=== PATIENT | female | born 1940 | race Caucasian/White ===

== ENCOUNTER → 2018-12-21 | Outpatient (CLI) | payer MEDICARE, OTHER ==
--- NOTE | 2018-12-21 17:49 | Diagnostic Imaging Report ---
EXAMINATION: Left hand, three views; right hand, three views. INDICATION: Osteoarthritis of both hands. COMPARISON: None available. FINDINGS: No fracture or acute osseous abnormality is appreciated. Bony alignment is fairly well maintained. There is marked degenerative change involving the first carpometacarpal joint of both hands, with marked joint space narrowing, marginal osteophyte formation, and subchondral cyst formation. Mild joint space narrowing involves the interphalangeal joints. Apparent rounded lucency in the left scaphoid bone may also be related to degenerative change. Well-corticated ossific density in the dorsal soft tissues of the left wrist may reflect degenerative change or sequela of prior trauma, possibly old triquetral fracture. Soft tissues are unremarkable. No radiopaque foreign body. IMPRESSION: Marked degenerative change of both hands mainly involving the first metacarpophalangeal joints bilaterally. No acute fracture or dislocation. Dictated by: Dictated on workstation # [id number]
== END ==
LOC: RAD 12:38
PROVIDERS: ATTEND Internal Medicine Rheumatology
DX: M19.041 Primary osteoarthritis, right hand (principal); M19.042 Primary osteoarthritis, left hand

== ENCOUNTER 2020-11-20 13:12 | Outpatient (RCR) | payer MEDICARE, OTHER | END 2021-01-13 | disposition home or self-care (01) | PROVIDERS: ATTEND Physician Assistant | DX: G62.9 Polyneuropathy, unspecified (principal) ==

== ENCOUNTER 2021-12-10 14:03 | Outpatient (RCR) | payer MEDICARE, OTHER | END 2021-12-15 | disposition home or self-care (01) | PROVIDERS: ATTEND Family Medicine | DX: M54.12 Radiculopathy, cervical region (principal) ==

== ENCOUNTER 2021-12-30 14:12 | Outpatient (RCR) | payer MEDICARE, OTHER | END 2022-01-14 | disposition home or self-care (01) | PROVIDERS: ATTEND Family Medicine | DX: M54.12 Radiculopathy, cervical region (principal); M62.838 Other muscle spasm; E11.9 Type 2 diabetes mellitus without complications ==

== ENCOUNTER → 2022-03-10 | Outpatient (CLI) | payer MEDICARE, OTHER ==
[2022-03-10 11:54] LABS: BASOPHILS % (AUTO) 1 % (0-10); EOSINOPHILS # (AUTO) 0.2 10^3/uL (0.0-0.3); EOSINOPHILS % (AUTO) 2 % (0-10); HEMATOCRIT 39 % (35-52); HEMOGLOBIN 12.5 g/dL (11.5-16.0); LYMPHOCYTES # (AUTO) 1.7 10^3/uL (1.0-4.0); LYMPHOCYTES % (AUTO) 22 % (12-44); MEAN CORPUSCULAR HEMOGLOBIN 27 pg (25-34); MEAN CORPUSCULAR HGB CONC 32 g/dL (32-36); MEAN CORPUSCULAR VOLUME 84 fL (80-99); MEAN PLATELET VOLUME 10.2 fL (9.0-12.2); MONOCYTES # (AUTO) 0.7 10^3/uL (0.0-1.0); MONOCYTES % (AUTO) 9 % (0-12); NEUTROPHILS # (AUTO) 5.2 10^3/uL (1.8-7.8); NEUTROPHILS % (AUTO) 66 % (42-75); PLATELET COUNT 289 10^3/uL (130-400); WHITE BLOOD COUNT 7.8 10^3/uL (4.3-11.0)
[2022-03-10 12:11] LABS: ALBUMIN 3.7 GM/DL (3.2-4.5)
[2022-03-10 12:12] LABS: POTASSIUM 5.2 MMOL/L (3.6-5.0)
[2022-03-10 12:13] LABS: CALCIUM 9.9 MG/DL (8.5-10.1)
[2022-03-10 12:14] LABS: TOTAL PROTEIN 7.2 GM/DL (6.4-8.2)
[2022-03-10 12:16] LABS: BILIRUBIN,TOTAL 0.3 MG/DL (0.1-1.0)
[2022-03-10 12:18] LABS: CREATININE SERUM 0.92 MG/DL (0.60-1.30)
[2022-03-10 12:22] LABS: ERYTHROCYTE SEDIMENTATION RATE 40 MM/HR (0-30)
== END ==
LOC: WOUNDCARE 10:11
PROVIDERS: ATTEND Family Medicine
DX: L97.512 Non-pressure chronic ulcer of other part of right foot with fat layer exposed (principal); E11.621 Type 2 diabetes mellitus with foot ulcer; E11.65 Type 2 diabetes mellitus with hyperglycemia; E11.40 Type 2 diabetes mellitus with diabetic neuropathy, unspecified; E55.9 Vitamin D deficiency, unspecified; L03.031 Cellulitis of right toe; I70.235 Atherosclerosis of native arteries of right leg with ulceration of other part of foot; R26.89 Other abnormalities of gait and mobility
CPT/HCPCS: 80053; 83036; 85025; 85652; 86141; A6197; G0463; 36415; 99214

== ENCOUNTER → 2022-03-23 | Outpatient (CLI) | payer MEDICARE, OTHER ==
--- NOTE | 2022-03-23 18:23 | Diagnostic Imaging Report ---
INDICATION: Osteomyelitis, ulcer, wound. COMPARISON: None available TECHNIQUE: 3 radiographs of the right foot dated 06/22/2022 FINDINGS: No acute fracture or dislocation. No focal destructive osseous process. Advanced degenerative changes are identified within the midfoot with severe joint space narrowing, sclerosis of the articular surfaces, and subchondral cyst formation. Prominent osteophyte formation is also noted with mild pes planus deformity. Tiny plantar calcaneal enthesophytes. Anterior osteophytes noted involving the distal tibia at the ankle joint. Soft tissue swelling is noted about the ankle. The Lisfranc joint is not optimally visualized secondary to advanced degenerative changes. No suspicious radiopaque foreign body. IMPRESSION: Advanced degenerative changes, particularly involving the midfoot with resultant pes planus deformity and poor visualization of the Lisfranc joint. No focal osseous destruction associated with the 1st toe to correspond to apparent clinical abnormality. Should there remain clinical concern for underlying osteomyelitis, follow-up radiographs in 10-14 days would be recommended. Alternatively, MRI could be considered. Soft tissue swelling involving the ankle. Dictated by: Dictated on workstation # [id number]
== END ==
LOC: WOUNDCARE 10:18
PROVIDERS: ATTEND Family Medicine
DX: L97.512 Non-pressure chronic ulcer of other part of right foot with fat layer exposed (principal); E11.621 Type 2 diabetes mellitus with foot ulcer; E11.65 Type 2 diabetes mellitus with hyperglycemia; E11.40 Type 2 diabetes mellitus with diabetic neuropathy, unspecified; E55.9 Vitamin D deficiency, unspecified; L03.031 Cellulitis of right toe; I70.235 Atherosclerosis of native arteries of right leg with ulceration of other part of foot; R26.89 Other abnormalities of gait and mobility; E11.52 Type 2 diabetes mellitus with diabetic peripheral angiopathy with gangrene
CPT/HCPCS: 11042; 73630; G0463

== ENCOUNTER → 2022-03-30 | Outpatient (CLI) | payer MEDICARE, OTHER | LOC: WOUNDCARE 12:51 | PROVIDERS: ATTEND Family Medicine | DX: L97.512 Non-pressure chronic ulcer of other part of right foot with fat layer exposed (principal); E11.621 Type 2 diabetes mellitus with foot ulcer; E11.65 Type 2 diabetes mellitus with hyperglycemia; E11.40 Type 2 diabetes mellitus with diabetic neuropathy, unspecified; E55.9 Vitamin D deficiency, unspecified; R26.89 Other abnormalities of gait and mobility; I70.235 Atherosclerosis of native arteries of right leg with ulceration of other part of foot; E11.52 Type 2 diabetes mellitus with diabetic peripheral angiopathy with gangrene; I96 Gangrene, not elsewhere classified | CPT/HCPCS: 11042; G0463 ==

== ENCOUNTER → 2022-04-06 | Outpatient (CLI) | payer MEDICARE, OTHER | LOC: WOUNDCARE 13:47 | PROVIDERS: ATTEND Family Medicine | DX: I96 Gangrene, not elsewhere classified (principal); L97.512 Non-pressure chronic ulcer of other part of right foot with fat layer exposed; E11.621 Type 2 diabetes mellitus with foot ulcer; E11.65 Type 2 diabetes mellitus with hyperglycemia; E11.52 Type 2 diabetes mellitus with diabetic peripheral angiopathy with gangrene; E11.40 Type 2 diabetes mellitus with diabetic neuropathy, unspecified; E55.9 Vitamin D deficiency, unspecified; I70.235 Atherosclerosis of native arteries of right leg with ulceration of other part of foot | CPT/HCPCS: 11042; G0463 ==

== ENCOUNTER → 2022-04-13 | Outpatient (CLI) | payer MEDICARE, OTHER | LOC: WOUNDCARE 13:49 | PROVIDERS: ATTEND Family Medicine | DX: L97.512 Non-pressure chronic ulcer of other part of right foot with fat layer exposed (principal); E11.621 Type 2 diabetes mellitus with foot ulcer; E11.65 Type 2 diabetes mellitus with hyperglycemia; E11.40 Type 2 diabetes mellitus with diabetic neuropathy, unspecified; E55.9 Vitamin D deficiency, unspecified; I70.235 Atherosclerosis of native arteries of right leg with ulceration of other part of foot; L97.522 Non-pressure chronic ulcer of other part of left foot with fat layer exposed; E11.52 Type 2 diabetes mellitus with diabetic peripheral angiopathy with gangrene; R26.89 Other abnormalities of gait and mobility | CPT/HCPCS: 11042; A6197; G0463 ==

== ENCOUNTER → 2022-04-20 | Outpatient (CLI) | payer MEDICARE, OTHER | LOC: WOUNDCARE 13:49 | PROVIDERS: ATTEND Family Medicine | DX: E11.621 Type 2 diabetes mellitus with foot ulcer (principal); E11.65 Type 2 diabetes mellitus with hyperglycemia; E11.40 Type 2 diabetes mellitus with diabetic neuropathy, unspecified; L97.512 Non-pressure chronic ulcer of other part of right foot with fat layer exposed; E55.9 Vitamin D deficiency, unspecified; I70.235 Atherosclerosis of native arteries of right leg with ulceration of other part of foot; L97.522 Non-pressure chronic ulcer of other part of left foot with fat layer exposed; E11.52 Type 2 diabetes mellitus with diabetic peripheral angiopathy with gangrene; I96 Gangrene, not elsewhere classified; R26.89 Other abnormalities of gait and mobility; Z68.23 Body mass index [BMI] 23.0-23.9, adult | CPT/HCPCS: 15275; G0463 ==

== ENCOUNTER → 2022-05-04 | Outpatient (CLI) | payer MEDICARE, OTHER | LOC: WOUNDCARE 13:57 | PROVIDERS: ATTEND Family Medicine | DX: L97.512 Non-pressure chronic ulcer of other part of right foot with fat layer exposed (principal); E11.621 Type 2 diabetes mellitus with foot ulcer; E11.65 Type 2 diabetes mellitus with hyperglycemia; E11.40 Type 2 diabetes mellitus with diabetic neuropathy, unspecified; E55.9 Vitamin D deficiency, unspecified; I70.235 Atherosclerosis of native arteries of right leg with ulceration of other part of foot; R26.89 Other abnormalities of gait and mobility; L97.522 Non-pressure chronic ulcer of other part of left foot with fat layer exposed; E11.52 Type 2 diabetes mellitus with diabetic peripheral angiopathy with gangrene; I96 Gangrene, not elsewhere classified | CPT/HCPCS: 15275; G0463 ==

== ENCOUNTER 2022-06-01 19:57 | Emergency (ER) | payer MEDICARE, OTHER ==
[2022-06-01 19:59] VITALS: BP 164/69
[2022-06-01 20:20] LABS: BASOPHILS # (AUTO) 0.1 10^3/uL (0.0-0.1); BASOPHILS % (AUTO) 1 % (0-10); EOSINOPHILS # (AUTO) 0.2 10^3/uL (0.0-0.3); EOSINOPHILS % (AUTO) 3 % (0-10); HEMATOCRIT 36 % (35-52); HEMOGLOBIN 11.3 g/dL (11.5-16.0); LYMPHOCYTES # (AUTO) 1.5 10^3/uL (1.0-4.0); LYMPHOCYTES % (AUTO) 21 % (12-44); MEAN CORPUSCULAR HEMOGLOBIN 27 pg (25-34); MEAN CORPUSCULAR HGB CONC 32 g/dL (32-36); MEAN CORPUSCULAR VOLUME 84 fL (80-99); MEAN PLATELET VOLUME 10.1 fL (9.0-12.2); MONOCYTES # (AUTO) 0.9 10^3/uL (0.0-1.0); MONOCYTES % (AUTO) 13 % (0-12); NEUTROPHILS # (AUTO) 4.4 10^3/uL (1.8-7.8); NEUTROPHILS % (AUTO) 62 % (42-75); PLATELET COUNT 310 10^3/uL (130-400)
[2022-06-01 20:27] LABS: BILIRUBIN,URINE NEGATIVE (NEGATIVE); CLARITY,URINE CLEAR; COLOR,URINE YELLOW; GLUCOSE, URINE (UA) 1+ (NEGATIVE); KETONES,URINE NEGATIVE (NEGATIVE); LEUKOCYTE ESTERASE ,URINE NEGATIVE (NEGATIVE); NITRITE,URINE NEGATIVE (NEGATIVE); PH,URINE 5.5 (5-9); PROTEIN,URINE NEGATIVE (NEGATIVE)
--- NOTE | 2022-06-01 20:29 | ED General ---
General Chief Complaint: Neurological Problems Stated Complaint: STROKE SYMPTOMS Nursing Triage Note: PT ARRIVAL TO ER VIA [facility] FROM HOME WITH COMPLAINTS OF TROUBLE FINDING WORDS, DELAY IN RESPONSE. LAST KNOWN WELL TIME BY FAMILY IS 1500, BUT PATIENT STATES THAT THIS STARTED AROUND 1830. PATIENT HAS NO OTHER SIGNS OR SYMPTOMS OF CVA. PT DENIES HEADACHE. Source of Information: Patient (LIMITED HISTORIAN. ), EMS (MARIELLA BALBUENA DO) History of Present Illness Date Seen by Provider: Jun 01, 2022 Time Seen by Provider: 19:57 Initial Comments PT ARRIVES VIA EMS FROM HOME LAST KNOWN WELL TIME 1500 PT HAS BEEN HAVING DIFFICULTY FINDING WORDS, PT THINKS SHE STARTED HAVING THIS PROBLEM AROUND 1830 TONIGHT PT STATES SHE "JUST HASN'T FELT GOOD AT ALL" ALL DAY, SINCE WAKING HIS MORNING. BUT CANNOT GIVE ANY SPECIFIC COMPLAINTS OF ANY KIND SHE STATES SHE DID NOT TAKE ANY OF HER MEDICATIONS TODAY "BECAUSE I JUST DIDN'T FEEL GOOD" EMS REPORT TEMP OF 99.8 AT THE HOUSE, PRIOR TO ARRIVAL PT IS NON-INSULIN DEPENDENT DIABETIC. GLUCOSE > 300 FOR EMS. PT HAS NOT CHECKED HER BLOOD SUGAR AT HOME. NO RECENT MEDICATION CHANGES SHE IS ON 81 MG ASPIRIN, NO OTHER BLOOD THINNERS PT HAS RECENTLY HAD HER PACEMAKER REPLACED BY DR. WAHL AT [facility]--PT WITH DRESSING IN PLACE ON LEFT CHEST SHE ALSO HAD A RIGHT GREAT TOE AMPUTATION A COUPLE OF WEEKS AGO, DUE TO CHRONIC DIABETIC FOOT ULCER AND OSTEOMYELITIS, HAD BEEN GOING TO WOUND CARE PRIOR TO THAT FOR CHRONIC DIABETIC FOOT ULCER SHE HAS NOT HAD ANY PRIOR VISITS HERE, OTHER THAN OUTPATIENT WOUND CARE. PT HAS HAD COVID-19 VACCINES X 3. LAST ONE WAS 1 MONTH AGO SHE HAS NOT HAD SEASONAL FLU VACCINE THIS YEAR. PCP: DR. OSBORNE HAS MULTIPLE SPECIALISTS AT [facility] (MARIELLA BALBUENA DO) Allergies and Home Medications Allergies Uncoded Allergies: SINUS (Allergy, Unknown, 06/01/22) "SINUS MEDICATION" Patient Home Medication List Home Medication List Reviewed: Yes (BRENT RAYMOND MD) Review of Systems Review of Systems Constitutional: see HPI; No chills, No diaphoresis, No dizziness, No fever; malaise, weakness EENTM: no symptoms reported Respiratory: no symptoms reported; No cough, No orthopnea, No short of breath Cardiovascular: no symptoms reported; No chest pain, No edema, No palpitations, No syncope Gastrointestinal: no symptoms reported; No abdominal pain, No diarrhea, No nausea, No vomiting Genitourinary: no symptoms reported; No dysuria, No frequency Musculoskeletal: see HPI, other (NO PAIN COMPLAINTS) Skin: no symptoms reported, see HPI Psychiatric/Neurological: See HPI; Denies Headache; Pre-Existing Deficit (HAS PERIPHERAL NEUROPATHY --STATES NO FEELING IN EITHER FOOT. 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: [employer] (MARIELLA BALBUENA DO) Past Medical History Surgeries: Yes Amputation, Pacemaker Respiratory: No Cardiac: Yes (PACEMAKER IN PLACE) High Cholesterol, Hypertension, Irregular Heartbeat Neurological: Yes (PERIPHERAL NEUROPATHY; 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/01/22) Neuropathy 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: 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 Genitourinary: Yes (BLADDER CONTROL ISSUES) Gastrointestinal: Yes Gastroesophageal Reflux Musculoskeletal: Yes (RIGHT GREAT TOE AMPUTATION/OSTEOMYELITIS 04/2022; CHRONIC LEG PAIN ) Amputee, Arthritis Endocrine: Yes Diabetes, Non-Insulin dep HEENT: No Cancer: No Psychosocial: No Integumentary: Yes (DIABETIC FOOT ULCER/OSTEOMYELITIS R GREAT TOE) (MARIELLA BALBUENA DO) Physical Exam Vital Signs Vital Signs - First Documented 06/01/22 19:59 Temp 36.7 Pulse 87 Resp 20 B/P (MAP) 164/69 (100) Pulse Ox 99 O2 Delivery Room Air (BRENT RAYMOND MD) Vital Signs Capillary Refill : Less Than 3 Seconds (MARIELLA BALBUENA DO) Height, Weight, BMI Height: '" Weight: lbs. oz. 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 SPEECH IS CLEAR, PT DOES HAVE SOME DIFFICULTY FINDING SOME WORDS, BUT IS NOT CONFUSED. NO FOCAL DEFICITS. NIH 1 FOR VERY MILD EXPRESSIVE APHASIA. ) Skin: Normal Color, Warm/Dry, Other (SURGICAL SITE TO RIGHT GREAT TOE IS HEA LING WELL WITH NO SIGNS OF INFECTION, SUTURES ARE INTACT. THERE IS NO SWELLING OR DRAINAGE OR REDNESS TO THE AREA. SURGICAL WOUND TO LEFT UPPER CHEST IS HEALING WELL, NO SWELLING, NO REDNESS, NO DRAINAGE, NO WARMTH AND NO SIGNIFICANT TENDERNESS. ) (MARIELLA BALBUENA DO) Focused Exam Sepsis Stage: Sepsis Possible Source: Unknown (MARIELLA BALBUENA DO) Lactate Level 06/01/22 20:05: Lactic Acid Level 3.82*H 06/01/22 22:28: Lactic Acid Level 2.25*H 06/02/22 02:45: Lactic Acid Level 1.05 (BRENT RAYMOND MD) Time of Focused Exam: 21:00 Respiratory: Normal Breath Sounds, No Accessory Muscle Use, No Respiratory Distress Cardiovascular: Regular Rate, Rhythm, No Edema, No Murmur Skin: normal color, warm/dry (MARIELLA BALBUENA DO) Lactic Acid Level Laboratory Tests Test 06/01/22 20:05 06/01/22 22:28 06/02/22 02:45 Lactic Acid Level 3.82 MMOL/L (0.50-2.00) *H 2.25 MMOL/L (0.50-2.00) *H 1.05 MMOL/L (0.50-2.00) (BRENT RAYMOND MD) Within 3hrs of presentation: Admin fluids, Admin ABX, Blood cultures prior to ABX's, Focus exam, Lactate level (HERNANDEZMARIELLA Rudy DO) Progress/Results/Core Measures Suspected Sepsis SIRS Temperature: Pulse: 87 Respiratory Rate: 20 Laboratory Tests 06/01/22 20:05: White Blood Count 7.0 Blood Pressure 164 /69 Mean: 100 06/01/22 20:05: Lactic Acid Level 3.82*H 06/01/22 22:28: Lactic Acid Level 2.25*H 06/02/22 02:45: Lactic Acid Level 1.05 Laboratory Tests 06/01/22 20:05: Creatinine 0.86, INR Comment 1.0, Platelet Count 310, Total Bilirubin 0.2 (RAMIREZ BALBUENAA K DO) Results/Orders Lab Results Laboratory Tests Test 06/01/22 20:00 06/01/22 20:05 06/01/22 20:11 06/01/22 22:04 Range/Units Urine Color YELLOW Urine Clarity CLEAR Urine pH 5.5 5-9 Urine Specific [place] 1.025 H 1.016-1.022 Urine Protein NEGATIVE NEGATIVE Urine Glucose (UA) 1+ H NEGATIVE Urine Ketones NEGATIVE NEGATIVE Urine Nitrite NEGATIVE NEGATIVE Urine Bilirubin NEGATIVE NEGATIVE Urine Urobilinogen 0.2 < = 1.0 MG/DL Urine Leukocyte Esterase NEGATIVE NEGATIVE Urine RBC (Auto) NEGATIVE NEGATIVE Urine RBC 2-5 H /HPF Urine WBC 0-2 /HPF Urine Squamous Epithelial Cells 0-2 /HPF Urine Renal Epithelial Cells NONE /HPF Urine Crystals NONE /LPF Urine Bacteria TRACE /HPF Urine Casts NONE /LPF Urine Mucus NEGATIVE /LPF Urine Culture Indicated CULTURE PENDING White Blood Count 7.0 4.3-11.0 10^3/uL Red Blood Count 4.21 3.80-5.11 10^6/uL Hemoglobin 11.3 L 11.5-16.0 g/dL Hematocrit 36 35-52 % Mean Corpuscular Volume 84 80-99 fL Mean Corpuscular Hemoglobin 27 25-34 pg Mean Corpuscular Hemoglobin Concent 32 32-36 g/dL Red Cell Distribution Width 15.0 H 10.0-14.5 % Platelet Count 310 130-400 10^3/uL Mean Platelet Volume 10.1 9.0-12.2 fL Immature Granulocyte % (Auto) 0 % Neutrophils (%) (Auto) 62 42-75 % Lymphocytes (%) (Auto) 21 12-44 % Monocytes (%) (Auto) 13 H 0-12 % Eosinophils (%) (Auto) 3 0-10 % Basophils (%) (Auto) 1 0-10 % Neutrophils # (Auto) 4.4 1.8-7.8 10^3/uL Lymphocytes # (Auto) 1.5 1.0-4.0 10^3/uL Monocytes # (Auto) 0.9 0.0-1.0 10^3/uL Eosinophils # (Auto) 0.2 0.0-0.3 10^3/uL Basophils # (Auto) 0.1 0.0-0.1 10^3/uL Immature Granulocyte # (Auto) 0.0 0.0-0.1 10^3/uL Prothrombin Time 13.4 12.2-14.7 SEC INR Comment 1.0 0.8-1.4 Activated Partial Thromboplast Time 30 24-35 SEC D-Dimer 2.05 H 0.00-0.49 UG/ML Sodium Level 135 135-145 MMOL/L Potassium Level 3.9 3.6-5.0 MMOL/L Chloride Level 103 98-107 MMOL/L Carbon Dioxide Level 19 L 21-32 MMOL/L Anion Gap 13 5-14 MMOL/L Blood Urea Nitrogen 14 7-18 MG/DL Creatinine 0.86 0.60-1.30 MG/DL Estimat Glomerular Filtration Rate 68 BUN/Creatinine Ratio 16 Glucose Level 295 H 70-105 MG/DL Lactic Acid Level 3.82 *H 0.50-2.00 MMOL/L Calcium Level 9.4 8.5-10.1 MG/DL Corrected Calcium 9.9 8.5-10.1 MG/DL Total Bilirubin 0.2 0.1-1.0 MG/DL Aspartate Amino Transf (AST/SGOT) 27 5-34 U/L Alanine Aminotransferase (ALT/SGPT) 29 0-55 U/L Alkaline Phosphatase 153 H 40-136 U/L Troponin I 0.659 *H <0.028 NG/ML Total Protein 6.5 6.4-8.2 GM/DL Albumin 3.4 3.2-4.5 GM/DL Procalcitonin 0.04 <0.10 NG/ML Glucometer 256 H 70-110 MG/DL Beta-Hydroxybutyrate (Chem panel) 0.14 0.00-0.27 MMOL/L Test 06/01/22 22:28 06/01/22 22:37 06/02/22 01:49 06/02/22 02:18 Range/Units Glucose Level 253 H 70-105 MG/DL Lactic Acid Level 2.25 *H 0.50-2.00 MMOL/L Troponin I 0.732 *H <0.028 NG/ML Blood Gas Puncture Site L RAD Blood Gas Patient Temperature 37 Arterial Blood pH 7.42 7.37-7.43 Arterial Blood Partial Pressure CO2 36 35-45 MMHG Arterial Blood Partial Pressure O2 83 79-93 MMHG Arterial Blood HCO3 23 23-27 MMOL/L Arterial Blood Total CO2 23.6 21.0-31.0 MMOL/L Arterial Blood Oxygen Saturation 97 94-100 % Arterial Blood Base Excess -1.4 -2.5-2.5 MMOL/L Kel Test YES-POS Blood Gas Ventilator Setting NO Blood Gas Inspired Oxygen RA Glucometer 82 70-110 MG/DL Influenza Type A (RT-PCR) Not Detected Not Detecte Influenza Type B (RT-PCR) Not Detected Not Detecte SARS-CoV-2 RNA (RT-PCR) Detected H Not Detecte Test 06/02/22 02:45 06/02/22 06:27 06/02/22 09:48 Range/Units Lactic Acid Level 1.05 0.50-2.00 MMOL/L Troponin I 0.714 *H <0.028 NG/ML Glucometer 144 H 198 H 70-110 MG/DL (BRNET RAYMOND MD) My Orders Orders - BRENT RAYMOND MD Oxymetazoline 0.05% Nasal [place] (Afrin 0. (06/02/22 21:00) Fentanyl Inj (Sublimaze Injection) (06/02/22 10:45) Oxymetazoline 0.05% Nasal [place] (Afrin 0. (06/02/22 10:36) (BRENT RAYMOND MD) Medications Given in ED Current Medications Medications Dose Ordered Sig/Comfort Route Start Time Stop Time Status Last Admin Dose Admin Cefepime HCl 1000 mg/Sodium Chloride 50 ml @ 100 mls/hr ONCE ONCE IV 06/02/22 04:15 06/02/22 04:44 DC 06/02/22 04:20 100 MLS/HR Enoxaparin Sodium 80 mg ONCE ONCE SC 06/02/22 02:00 06/02/22 02:01 DC 06/02/22 02:02 80 MG Fentanyl Citrate 25 mcg ONCE ONCE IVP 06/02/22 10:45 06/02/22 10:46 DC 06/02/22 10:40 25 MCG Insulin Human Regular 10 unit ONCE ONCE IV 06/02/22 00:30 06/02/22 00:31 DC 06/02/22 00:34 10 UNIT Oxymetazoline HCl 1 SPRAY Q12HR ONCE NA 06/02/22 21:00 06/02/22 21:01 06/02/22 10:38 30 ML (BRENT RAYMOND MD) Vital Signs/I&O 06/01/22 19:59 Temp 36.7 Pulse 87 Resp 20 B/P (MAP) 164/69 (100) Pulse Ox 99 O2 Delivery Room Air 06/02/22 00:00 Intake Total 50 ml Balance 50 ml (BRENT RAYMOND MD) Vital Signs/I&O Capillary Refill : Less Than 3 Seconds (MARIELLA BALBUENA DO) Blood Pressure Mean: 100 Point of Care Testing Finger Stick Blood Glucose: 256 (MARIELLA BALBUENA DO) Progress Note : Progress Note STROKE ACTIVATION ON ARRIVAL ALSO SEPSIS PROTOCOL INITIATED CARDIAC WORK UP ALSO INITIATED GIVEN: -IV FLUIDS -ANTIBIOTICS -INSULIN -LOVENOX PT HAD RESOLUTION OF THE SYMPTOM OF PROBLEM FINDING WORDS DURING ER STAY. MUCH LATER, PT NOW REPORTS THAT SHE HAD THE SAME THING HAPPEN LAST NIGHT--WAS HAVING PROBLEMS FINDING THE RIGHT WORD, AND WHEN THIS WAS HAPPENING, SHE WAS ALSO HAVING "FLICKERS" IN HER RIGHT EYE. SHE IS NOT HAVING THOSE SYMPTOMS NOW, AND HER VISION IS NORMAL FOR HER. SHE IS UNCLEAR HOW LONG IT LASTED LAST NIGHT SHE DENIES ANY PRIOR HISTORY OF STROKES OR SIMILAR SYMPTOMS PT LIVES ALONE, BUT A FAMILY MEMBER "STEP-DAUGHTER" IS HERE WITH HER AND CHECKS ON HER REGULARLY. VERY COMPLICATED ISSUES, DUE TO: -POSSIBLE STROKE SYMPTOMS, WITH PROBLEMS WITH WORD FINDING, NIH IS ONLY 1, AND SYMPTOMS RESOLVED DURING ER STAY -ELEVATED TROPONIN. EKG IS NON-DIAGNOSTIC, SHE IS 100% VENTRICULAR PACED. -ELEVATED BLOOD GLUCOSE WITHOUT ANY EVIDENCE OF DKA OR HHNK -ELEVATED LACTIC ACID LEVEL IS CONCERNING FOR SEPSIS, WITHOUT ANY IDENTIFIABLE SOURCE, BUT HAS HAD 2 RECENT SURGICAL PROCEDURES. VERY LENGTHY DISCUSSION WITH PT AND "STEP DAUGHTER" ABOUT ALL TEST RESULTS. DISCUSSED OPTION OF ADMITTING HER HERE VS TRANSFER TO [facility] AND MULTISPECIALTY CARE AVAILABLE THERE. PT REQUESTS TRANSFER TO [facility], ALL OF HER SPECIALISTS ARE THERE, AND SHE ACTUALLY IS SCHEDULED TO HAVE FOLLOW UP APPOINTMENTS WITH DR. WAHL AND HER SURGEON FOR HER TOE AMPUTATION TOMORROW. ADVISED THEM OF TRANSPORTATION ISSUES, AND THAT WE WILL BE HOLDING HER HERE IN THE ER ALL NIGHT UNTIL TRANSPORTATION IS ARRANGED. PT IS AGREEABLE TO THIS PLAN. PT STATES SHE WISHES TO BE A FULL CODE. MUCH LATER, ON REVIEWING COVID RESULTS WITH PATIENT, SHE JUST NOW REPORTS THAT SHE HAD COVID IN APRIL AND SHE HAD HER 3RD VACCINE IN [place]. SHE STATES SHE TOOK MEDICATION FOR COVID, BUT WAS NOT HOSPITALIZED. ON REVIEW OF MED RECONCILIATION, PT WAS PRESCRIBED PAXLOVID 04/21/22. SUSPECT THAT TODAY'S POSITIVE COVID TEST IS LIKELY DUE TO HER RECENT COVID ILLNESS LAST MONTH. 0400--PT RESTING QUIETLY. HAS NO COMPLAINTS, VITALS STABLE. 0500--PT RESTING QUIETLY. HAS NO COMPLAINTS, VITALS STABLE. 0600--CARE TURNED OVER TO DR. RAYMOND, TRANSPORTATION IS PENDING, PT HAS BEEN ACCEPTED AT [facility]. (MARIELLA BALBUENA DO) Progress Note : Time: 10:33 Progress Note I assumed care of this patient from Dr. Balbuena at shift change. She has been stable since then. Vital signs are stable at this time. Patient was reevaluated and complains of generalized discomfort from lying in bed and discomfort in her legs from neuropathy. She usually takes tramadol for her neuropathy. I am keeping her in n.p.o. status presently since I am not aware of any procedures will be desired once she arrives at [facility]. As an alternative I have ordered fentanyl 25 mcg. She also complains of nasal congestion and Afrin was ordered. 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 Patient reports difficulty with word finding. This is not readily apparent during my conversation with her. Gross examination reveals no other focal neurologic deficits. Heart is regular rate and rhythm and lungs are clear to auscultation. (BRENT RAYMOND MD) ECG Initial ECG Impression Date: Jun 01, 2022 Initial ECG Impression Time: 20:14 Initial ECG Rate: 97 Comment 100% VENTRICULAR PACED. (MARIELLA BALBUENA DO) Diagnostic Imaging Comments CXR--PER RADIOLOGIST REPORT FINDINGS: The lungs clear aside from slight left medial basilar partial atelectasis. The heart size and vascularity within normal limits. Pacemaker device unremarkable. IMPRESSION: Mild left basilar atelectasis, otherwise negative. CT HEAD--PER RADIOLOGIST REPORT AT 2116 No priors. FINDINGS: There is no intracranial hemorrhage. There is no hydrocephalus, cerebral edema, mass or mass effect. There is mild senescent cerebral cortical atrophy. Ventricular calibers are congruent with the degree of sulcation and no kerry hydrocephalus. There is an old infarct in the left basal ganglia and some chronic periventricular white matter disease likely small vessel sequelae. There is intracranial atherosclerotic vascular calcifications. There is no sulcal effacement. No findings of cortical edema. No acute appearing abnormality. 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 Chronic atrophy and white matter small vessel disease with atherosclerosis. No hemorrhage, edema or acute appearing abnormalities. CT ANGIOGRAM OF CHEST--PER [facility] VIA FAX AT [id number] -NO P.E. -THORACIC AORTA IS MILDLY CALCIFIED BUT NON-DILATED. NON ANEURYSM OR DISSECTION -6.8 CM HIATAL HERNIA -TRACE RIGHT AND SMALL LEFT PLEURAL EFFUSIONS, UP TO 1.5 CM ON LEFT. THERE IS A SMALL AMOUNT OF BIBASILAR SUBSEGMENTAL ATELECTASIS VS EDEMA. Reviewed: Reviewed by Me (MARIELLA BALBUENA DO) Diagonstic Imaging: CT Plain Films/CT/US/NM/MRI: chest Comments NAME: JING FONTANEZSTEPHANIE Vargas [facility] REC#: [id number] PT STATUS: REG ER : 1940 PHYSICIAN: MARIELLA BALBUENA DO ADMIT DATE: 06/01/22/ER Draft Date of Exam:06/01/22 CT ANGIO CHEST W PROCEDURE: CT angiography of the chest with contrast. TECHNIQUE: Multiple contiguous axial images were obtained through the chest after uneventful bolus administration of intravenous contrast. 3D reconstructed CTA MIP acquisitions were also performed. Auto Exposure Controls were utilized during the CT exam to meet ALARA standards for radiation dose reduction. INDICATION: Fever, altered mental status, high probability of PE, neurological deficits. COMPARISON: Chest x-ray from the same day FINDINGS: The pulmonary arteries are diagnostic to the segmental level. No filling defects are seen to indicate a pulmonary embolus. There is no evidence of right heart strain. The heart is mildly prominent in size. There is marked calcification of the mitral annulus. Pacemaker leads are noted. There is no pericardial effusion. There are multiple mildly prominent mediastinal lymph nodes, including a right lower paratracheal lymph node measuring 1.5 cm in the short axis (image 46 series 2). There is no axillary adenopathy. The aorta demonstrates mild atherosclerosis but is normal in caliber. There is a large hiatal hernia. There is a small left pleural effusion and a minimal right pleural effusion with associated atelectasis. There is no pneumothorax. No central endobronchial lesions are seen. Imaged portions of the upper abdomen demonstrate no acute abnormality. Cholecystectomy clips are noted. There are mild degenerative changes in the spine with no acute osseous abnormalities seen. IMPRESSION: 1. No pulmonary embolus. 2. Small left and minimal right pleural effusions with associated atelectasis. 3. Mildly prominent mediastinal lymph nodes, may be reactive. 4. Large hiatal hernia. Findings regarding prominent mediastinal lymph nodes were not included in the preliminary report, otherwise agree with the preliminary report. These additional findings were communicated to the Emergency Room via the additional findings tracking sheet. Dictated on workstation # [id number] Dict: 06/02/22810 Trans: 06/02/22 08 REJI [id number] Interpreted by: FELICIANO LOVELL MD (BRENT RAYMOND MD) Departure Communication (Admissions) HAVE BEEN INFORMED BY EMS THAT THERE WILL BE NO GROUND TRANSPORT AVAILABLE ALL NIGHT, DUE TO STAFFING ISSUES TONIGHT. CURRENTLY AIR TRANSPORT IS UNLIKELY DUE TO WEATHER CONDITIONS. OTHER LOCAL EMS SERVICES WERE CONTACTED FOR TRANSPORT AND NONE ARE AVAILABLE TONIGHT. 2117--CONTACTED FOR NEUROLOGY CONSULT 2120--SPOKE WITH DR. ROBISON, STROKE NEUROLOGIST. SHE ADVISES THAT CTA IS NOT NECESSARY AT THIS TIME, UNLESS PT'S SYMPTOMS WORSEN. SHE ADVISES TO HAVE CAROTID STUDIES AND ECHOCARDIOGRAM TOMORROW, AND FURTHER CARDIOLOGY EVALUATION. SHE DOES NOT ADVISE ANY TPA AT THIS TIME, PT'S SYMPTOMS ARE VERY MINIMAL. 2146--CALLED [facility] ( PT PREFERENCE ) THEY WILL PAGE HOSPITALIST AND CALL BACK. 2199--CONTACTED DR. OSBORNE AND SHE AGREES WITH AND ADVISES TRANSFER TO [facility] WELL, DESPITE NO TRANSPORT AVAILABLE TONIGHT. . 2209--[facility] CALLED BACK. SPOKE WITH DR. THOMPSON, HOSPITALIST, HE ADVISES OBTAINING CTA OF CHEST AT THIS TIME. WILL CALL THEM BACK WITH RESULTS. THEY WILL ACCEPT THE PATIENT. ADVISED THEM OF TRANSPORTATION ISSUES. THEY WILL CONTACT US WITH BED ASSIGNMENT. 229--UPDATED [facility] ON PT'S CONDITION, REPEAT LAB FINDINGS, CT FINDINGS. BED ASSIGNMENT PENDING. 299--UPDATED [facility] ON COVID RESULTS AND THAT PT IS JUST NOW INFORMING US THAT SHE HAD COVID IN [facility]. BED ASSIGNMENT IS STILL PENDING. 509--RECEIVED CALL FROM [facility], DR. DEL RIO HAS ACCEPTED PT FOR ADMIT. LOCAL EMS HAVE BEEN CONTACTED AND ADVISED OF NEED FOR TRANSPORT FIRST THING IN THE MORNING. (MARIELLA BALBUENA DO) Impression Primary Impression: TRANSIENT EXPRESSIVE APHASIA Additional Impressions: Elevated troponin Elevated lactic acid level POSSIBLE SEPSIS Uncontrolled diabetes mellitus RECENT PACEMAKER REPLACEMENT RECENT RIGHT GREAT TOE AMPUTATION FOR OSTEOMYELITIS COVID-19 Disposition: 02 XFER [facility] HOSP Condition: Stable Transfer Transfer Reason: Exceeds level of care Transfer Facility: [place], [place] (MARIELLA BALBUENA DO) Transfer Time: 11:38 Method of Transfer: EMS (BRENT RAYMOND MD) Departure-Patient Inst. Referrals: RORY OSBORNE MD (PCP) Primary Care Physician MARIELLA BALBUENA DO Jun 01, 2022 20:29 BRENT RAYMOND MD Jun 02, 2022 10:42
[2022-06-01 20:33] LABS: ALBUMIN 3.4 GM/DL (3.2-4.5); POTASSIUM 3.9 MMOL/L (3.6-5.0)
[2022-06-01 20:34] LABS: CALCIUM 9.4 MG/DL (8.5-10.1)
[2022-06-01 20:34] LABS: WBC,URINE 0-2 /HPF
[2022-06-01 20:35] LABS: BACTERIA,URINE TRACE /HPF; SQUAMOUS EPITHELIAL CELL,UR 0-2 /HPF
[2022-06-01 20:36] LABS: TOTAL PROTEIN 6.5 GM/DL (6.4-8.2)
[2022-06-01 20:38] LABS: BILIRUBIN,TOTAL 0.2 MG/DL (0.1-1.0); FIBRIN DEGRADATION PRODUCTS 2.05 UG/ML (0.00-0.49); PROTHROMBIN TIME PATIENT 13.4 SEC (12.2-14.7)
[2022-06-01 20:39] LABS: CREATININE SERUM 0.86 MG/DL (0.60-1.30)
--- NOTE | 2022-06-01 20:59 | Diagnostic Imaging Report ---
INDICATION: Fever FINDINGS: The lungs clear aside from slight left medial basilar partial atelectasis. The heart size and vascularity within normal limits. Pacemaker device unremarkable. IMPRESSION: Mild left basilar atelectasis, otherwise negative. Dictated by: Dictated on workstation # [id number]
--- NOTE | 2022-06-01 21:08 | Diagnostic Imaging Report ---
PROCEDURE: CT head wo r/o stroke. TECHNIQUE: Multiple contiguous axial images were obtained through the brain without the use of intravenous contrast. Auto Exposure Controls were utilized during the CT exam to meet ALARA standards for radiation dose reduction. INDICATION: Difficulty with speech. No priors. FINDINGS: There is no intracranial hemorrhage. There is no hydrocephalus, cerebral edema, mass or mass effect. There is mild senescent cerebral cortical atrophy. Ventricular calibers are congruent with the degree of sulcation and no kerry hydrocephalus. There is an old infarct in the left basal ganglia and some chronic periventricular white matter disease likely small vessel sequelae. There is intracranial atherosclerotic vascular calcifications. There is no sulcal effacement. No findings of cortical edema. No acute appearing abnormality. 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 Chronic atrophy and white matter small vessel disease with atherosclerosis. No hemorrhage, edema or acute appearing abnormalities. Dictated by: Dictated on workstation # [id number]
[2022-06-01] MEDS ORDERED: CEFEPIME INJECTION 1,000 MG in NS (IVPB) 50 ML IV ONE (22:30)
[2022-06-01] MEDS ORDERED: fentaNYL INJ 100 MCG/2 ML AMP IVP STA (22:37)
[2022-06-01] MEDS ORDERED: IOHEXOL 350 MG/ML 100 ML (OMNIPAQUE 350) VIAL IV ONE (23:15)
[2022-06-01] MEDS ORDERED: NS 100 ML (IVPB) BAG IV ONE (23:15)
[2022-06-01] MEDS ORDERED: HOLD METFORMIN - RECEIVED CONTRAST 20 ML VIAL IV SCH (23:15)
[2022-06-02] MEDS ORDERED: inSUlin (REGULAR) HUMAN 1 UNIT/0.01 ML (CHARGE PER UNIT) IV ONE (00:30)
[2022-06-02] MEDS ORDERED: NS IV 1000 ML 1,000 ML IV SCH (00:30)
[2022-06-02 00:53] LABS: ABG BASE EXCESS -1.4 MMOL/L (-2.5-2.5); ABG OXYGEN SATURATION 97 % (94-100); ABG PCO2 36 MMHG (35-45); ABG PH 7.42 (7.37-7.43); ABG PO2 83 MMHG (79-93); ABG TCO2 23.6 MMOL/L (21.0-31.0); ALLENS TEST YES-POS; INSPIRED O2 RA; PATIENT TEMP 37; VENTILATOR NO
[2022-06-02] MEDS ORDERED: ENOXAPARIN 80 MG/0.8 ML (LOVENOX) SYR SC ONE (02:00)
[2022-06-02] MEDS ORDERED: D5 1/2 NS W/KCL 20 MEQ/L 1,000 ML IV SCH (02:00)
[2022-06-02] MEDS ORDERED: CEFEPIME INJECTION 1,000 MG in NS (IVPB) 50 ML IV ONE (04:15)
--- NOTE | 2022-06-02 08:21 | Diagnostic Imaging Report ---
PROCEDURE: CT angiography of the chest with contrast. TECHNIQUE: Multiple contiguous axial images were obtained through the chest after uneventful bolus administration of intravenous contrast. 3D reconstructed CTA MIP acquisitions were also performed. Auto Exposure Controls were utilized during the CT exam to meet ALARA standards for radiation dose reduction. INDICATION: Fever, altered mental status, high probability of PE, neurological deficits. COMPARISON: Chest x-ray from the same day FINDINGS: The pulmonary arteries are diagnostic to the segmental level. No filling defects are seen to indicate a pulmonary embolus. There is no evidence of right heart strain. The heart is mildly prominent in size. There is marked calcification of the mitral annulus. Pacemaker leads are noted. There is no pericardial effusion. There are multiple mildly prominent mediastinal lymph nodes, including a right lower paratracheal lymph node measuring 1.5 cm in the short axis (image 46 series 2). There is no axillary adenopathy. The aorta demonstrates mild atherosclerosis but is normal in caliber. There is a large hiatal hernia. There is a small left pleural effusion and a minimal right pleural effusion with associated atelectasis. There is no pneumothorax. No central endobronchial lesions are seen. Imaged portions of the upper abdomen demonstrate no acute abnormality. Cholecystectomy clips are noted. There are mild degenerative changes in the spine with no acute osseous abnormalities seen. IMPRESSION: 1. No pulmonary embolus. 2. Small left and minimal right pleural effusions with associated atelectasis. 3. Mildly prominent mediastinal lymph nodes, may be reactive. 4. Large hiatal hernia. Findings regarding prominent mediastinal lymph nodes were not included in the preliminary report, otherwise agree with the preliminary report. These additional findings were communicated to the Emergency Room via the additional findings tracking sheet. Dictated by: Dictated on workstation # [id number]
[2022-06-02] MEDS ORDERED: OXYMETAZOLINE (AFRIN) 0.05% NA 30 ML BTL ONE ×2 (10:36→21:00)
[2022-06-02] MEDS ORDERED: fentaNYL INJ 100 MCG/2 ML AMP IVP ONE (10:45)
== END 2022-06-02 11:51 | disposition short-term general hospital (02) ==
LOC: EDUNIT# 19:57 → ER 20:00
DX: R47.01 Aphasia (principal); U07.1 COVID-19; E11.621 Type 2 diabetes mellitus with foot ulcer; E11.69 Type 2 diabetes mellitus with other specified complication; M86.9 Osteomyelitis, unspecified; R77.8 Other specified abnormalities of plasma proteins; R74.02 Elevation of levels of lactic acid dehydrogenase [LDH]; Z89.411 Acquired absence of right great toe; Z95.0 Presence of cardiac pacemaker; Z79.82 Long term (current) use of aspirin
CPT/HCPCS: 36415; 51702; 70450; 71045; 71275; 80053; 81000; 82010; 82805; 82947; 83036; 83605; 84145; 84484; 85025; 85379; 85610; 85730; 87040; 87077; 87088; 87636; 93005; 93041; 99291

== ENCOUNTER 2022-06-04 11:12 | Inpatient (IN) | payer MEDICARE, OTHER ==
[~2022-06-04] VITALS: Ht 162.6 cm; Wt 59.8 kg
[2022-06-04] MEDS ORDERED: guaiFENesin/CODEINE (ROBITUSSIN AC) 10ML UDC PO PRN (11:15)
[2022-06-04] MEDS ORDERED: CALCIUM CARBONATE 500 MG (TUMS) TAB.CHEW PO PRN (11:15)
[2022-06-04] MEDS ORDERED: ACETAMINOPHEN 325 MG TABLET PO PRN (11:15)
[2022-06-04] MEDS ORDERED: DOCUSATE SODIUM 100 MG (COLACE) CAP PO PRN (11:15)
[2022-06-04] MEDS ORDERED: FLEET ENEMA ADULT 1 EA BTL PR PRN (11:15)
[2022-06-04] MEDS ORDERED: LACTULOSE SYRUP 10GM/15ML (ENULOSE) 30ML UDC PO PRN (11:15)
[2022-06-04] MEDS ORDERED: ALPRAZolam 0.25 MG (XANAX) TAB PO PRN (11:15)
[2022-06-04] MEDS ORDERED: ONDANSETRON 4 MG (ZOFRAN) ORAL DISSOLVE TAB PO PRN (11:15)
[2022-06-04] MEDS ORDERED: LOPERAMIDE 2 MG (IMODIUM) TABLET PO PRN (11:15)
[2022-06-04] MEDS ORDERED: BISACODYL 10 MG SUPP (DULCOLAX) PR PRN (11:15)
[2022-06-04] MEDS ORDERED: diphenhydrAMINE 25 MG TAB (BENADRYL) PO PRN (11:15)
--- NOTE | 2022-06-04 13:58 | PM&R Post Admission Assessment ---
PM&R HP Date of Visit: Jun 04, 2022 Time of Visit: 17:45 History of Present Illness CC: Expressive aphasia HPI: Patient is a 82-year-old female with a history of HTN, T2DM, and neuropathy who presented to [facility]: on 06/01 for expressive aphasia. Patient states that at 7:30 on 06/01 she suddenly became confused and had difficulties finding words. She states that she was eventually able to call her son-in-law but was only able to babble and couldn't express her thoughts. Her daughter called EMS which took her to the ED. CT of the head showed no acute changes. Her d-dimer was elevated at 2.05. CT angiogram showed no signs of a PE. She was transferred to [facility] in [place] on 06/02 and her symptoms have improved over the last few days. An echo performed on 06/03 showed mitral stenosis, pulmonary HTN, atrial enlargement, aortic sclerosis and diastolic dysfunction. When I entered the room the patient was awake and alert in her bed, no family at bedside. The patient reports that her aphasia has improved greatly since the start of her symptoms, but she occasionally has a hard time finding the right word or expressing her thoughts. She also states that she still feels discombobulated and unsure of what to do at times. The patient states that she is unable to stand which she reports she has not tried to do until today and just noticed. When asked to elaborate the patient seemed slightly confused and had a hard time explaining. She states that if she had her house slippers on top of her booties she might be able to walk. The patient did endorse weakness in their lower extremities but it is unclear if this is what she was intending to communicate. Patient is anxious about her . He has dementia and she is the primary caregiver. She states that she helps him do most of his daily activities. They do have home health and curr ently they have family staying with him, but she is anxious that he may need to be placed in an assisted-living facility. PMH: HTN,HLD, T2DM, anxiety, chronic coccygeal pain, GERD, AV block requiring pacemaker, Hx of endometrial adenocarcinoma PSH: Cataract, gallbladder, pacemaker, inguinal hernia, hysterectomy, salpingo- oophorectomy, right great toe partial amputation, hemorrhoid All: NKDA Home meds:hydrocodone-acetaminophen, lexapro, ezetimibe, flonase, gabapentin, glimepiride, victoza, lisinopril, metformin, omeprazole pramipexole, pravastatin, tramadol SH: Never smoker, denies illicit drug use, endorses about 4 drinks a week FH: Sister- heart disease, Mother- heart disease, Father- heart disease ROS: Endorses back pain states due to chronic coccygeal pain. Denies N/V, fever, chills, constipation, diarrhea, joint pain, chest pain, shortness of breath, changes in vision, hearing Exam: Patient is well developed and well nourished in no acute distress. Patient is alert and oriented but at times seems slightly confused. HRRR. PERRLA. Lungs clear to auscultation b/l. Muscle strength 5/5 b/l upper and lower extremities. Peripheral sensation intact. Distal pulses 2+ b/l. Neck supple, nontender. Abdomen soft, nontender. Mild edema noted in R lower extremity, skin over great toe amputation healing well. A: TIA Expressive aphasia Debility AMS HTN HLD T2DM Neuropathy GERD Chronic coccygeal pain Anxiety P: OT/PT Pain control as needed Aspirin Plavix Monitor BP Monitor sugars, patient states they were high during her stay at [facility] Past Zglldcd-Lebpix-Itmuou Hx Past Med/Social Hx: Reviewed Nursing Past Med/Soc Hx, Reviewed and Corrections made Patient Social History Marrital Status: Employed/Student: retired Alcohol Use: Denies Use Smoking Status: Former Smoker Past Medical History Surgeries: Amputation, Pacemaker Cardiac: High Cholesterol, Hypertension, Irregular Heartbeat Neurological: Neuropathy, TIA (06/01/2022) Menopausal Gastrointestinal: Gastroesophageal Reflux Musculoskeletal: Amputee, Arthritis Endocrine: Diabetes, Non-Insulin dep PM&R Allergy/Meds/Data Review Allergies Coded Allergies: No Allergy Information Available (Unverified , 06/04/22) Home Medications Scheduled Aspirin (Aspirin), 81 MG PO DAILY, (Reported) Cholecalciferol (Vitamin D3) (Cholecalciferol), 25 MCG PO DAILY, (Reported) Clopidogrel Bisulfate (Plavix), 75 MG PO DAILY, (Reported) Escitalopram Oxalate (Escitalopram Oxalate), 10 MG PO HS, (Reported) Ezetimibe (Ezetimibe), 10 MG PO DAILY, (Reported) Gabapentin (Neurontin), 300 MG PO TID, (Reported) Glimepiride (Glimepiride), Unknown Dose PO DAILY, (Reported) Hydrocortisone (Proctocort), 28.4 GM TP TID, (Reported) Liraglutide (Victoza 2-Devin), 1.2 MG SQ DAILY, (Reported) Lisinopril (Lisinopril), 40 MG PO DAILY, (Reported) Magnesium (Magnesium), 400 MG PO BID, (Reported) Metformin HCl (Metformin HCl), 1,000 MG PO BID WITH MEALS, (Reported) Omeprazole (Omeprazole), 20 MG PO DAILY, (Reported) Pramipexole (Mirapex), 0.25 MG PO HS, (Reported) Pravastatin Sodium (Pravastatin Sodium), 80 MG PO DAILY, (Reported) [XL-Mu-Zekyso-Zinc], 1 TAB PO DAILY, (Reported) Scheduled PRN Hydrocodone/Acetaminophen (Hydrocodone-Acetamin 5-325 mg), 1 TAB PO Q4H PRN for PAIN-MODERATE (5-7), (Reported) Tramadol HCl (Tramadol HCl), 50 MG PO Q12H PRN for PAIN-MODERATE (5-7), (Reported) Miscellaneous Medications Fluticasone Propionate (Fluticasone Propionate), 16 GM NS, (Reported) Current Medications Current Medications Reviewed Review of Systems Constitutional: see HPI, malaise, weakness EENTM: no symptoms reported Respiratory: no symptoms reported Cardiovascular: no symptoms reported Gastrointestinal: no symptoms reported Genitourinary: no symptoms reported Musculoskeletal: no symptoms reported Skin: no symptoms reported Psychiatric/Neurological: Anxiety, Weakness All Other Systems Reviewed Negative Unless Noted: Yes Physical Exam Physical Exam Vital Signs Capillary Refill : Height, Weight, BMI Height: '" Weight: lbs. oz. kg; BMI Method: General Appearance: No Apparent Distress, WD/WN, Anxious, Chronically ill, Thin Eyes: Bilateral Eye Normal Inspection, Bilateral Eye PERRL HEENT: PERRL/EOMI, Normal ENT Inspection, Pharynx Normal Neck: Full Range of Motion, Normal Inspection, Non Tender, Supple, Carotid Bruit Respiratory: Chest Non Tender, Lungs Clear, Normal Breath Sounds, No Accessory Muscle Use, No Respiratory Distress Cardiovascular: Regular Rate, Rhythm, No Edema, No Gallop, No JVD, No Murmur, Normal Peripheral Pulses Gastrointestinal: Normal Bowel Sounds, No Organomegaly, No Pulsatile Mass, Non Tender, Soft Back: Normal Inspection, No CVA Tenderness, No Vertebral Tenderness Extremity: Normal Capillary Refill, Normal Inspection, Normal Range of Motion, Non Tender, No Calf Tenderness, No Pedal Edema Neurologic/Psychiatric: Alert, Oriented x3, Normal Mood/Affect, consultant teacher II-XII Norm as Tested, Abnormal Gait, Motor Weakness (Generalized) Skin: Normal Color, Warm/Dry Lymphatic: No Adenopathy PM&R Medical Assessment & Plan REHAB/MEDICAL ASSESSMENT AND PLAN: REHAB IMPAIRMENT GROUP: TIA with weakness ETIOLOGIC DIAGNOSIS: TIA with weakness The comorbidities that impact the patients function and/or functional outcome by: Advanced age, comorbidities including diabetes, recent toe amputation, caregiver for spouse with dementia REHAB PLAN: The patient is being admitted to our comprehensive inpatient rehabilitation facility and can tolerate the intensity of service consisting of at least: 180 minutes of therapy a day, 5 out of 7 days a week Rehab treatment will consist of: PT and OT will focus on regaining function with use of assistive devices in order to prevent falls and build stamina to return home The patient/family has a good understanding of our discharge process and will benefit from an interdisciplinary inpatient rehabilitation program. The patient has potential to make improvement and is in need of at least two of the following multidisciplinary therapies including but not limited to physical, occupational, speech, and prosthetics and orthotics. Additionally the patient will need services from respiratory, nutritional services, wound care, psychology, etc. (Customize this to each patient). Given the patients complex c ondition and risk of further medical complications, rehabilitation services cannot be safely or effectively provided at a lower level of care such as a fci facility. BARRIERS TO DISCHARGE: Advanced age and caregiver to spouse ESTIMATED LOS: 7 days DISPOSITION: Home RELEVANT CHANGES SINCE PREADMISSION SCREENING: I have compared the patients medical and functional status at the time of the preadmission screening and there are: No changes PROGNOSIS: Fair REHABILITATION GOALS: 1. PT and OT will focus on regaining function with use of assistive devices in order to prevent falls and build stamina to return home All the above goals were reviewed with the patient and he/she is in agreement. By signing this document, I acknowledge that I have personally performed a full physical examination on this patient within 24 hours of admission to this inpatient rehabilitation facility and have determined the patient to be able to tolerate the above course of treatment at an intensive level for a reasonable period of time. I will be completing a detailed individualized Plan of Care for this patient by day #4 of the patients stay based upon the Preadmission Screen, the Post-Admission Evaluation, and the therapy evaluations. Admission Dx/Comorbidities: (1) Acute ischemic stroke ICD Codes: I63.9 - Cerebral infarction, unspecified (2) TIA (transient ischemic attack) ICD Codes: G45.9 - Transient cerebral ischemic attack, unspecified (3) Expressive aphasia ICD Codes: R47.01 - Aphasia (4) NSTEMI (non-ST elevated myocardial infarction) ICD Codes: I21.4 - Non-ST elevation (NSTEMI) myocardial infarction (5) Pacemaker ICD Codes: Z95.0 - Presence of cardiac pacemaker (6) Hypertension ICD Codes: I10 - Essential (primary) hypertension (7) Amputation of toe of right foot ICD Codes: S98.131A - Complete traumatic amputation of one right lesser toe, initial encounter (8) Uncontrolled diabetes mellitus Status: Acute Assessment/Plan Assessment and Plan Assess & Plan/Chief Complaint Assessment: Acute ischemic stroke 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
[2022-06-04] MEDS ORDERED: GLIM2TAB4 PO (14:55)
[2022-06-04] MEDS ORDERED: OMEP20CA18 PO (14:55)
[2022-06-04] MEDS ORDERED: PRAM0.12 PO (14:55)
[2022-06-04] MEDS ORDERED: LIRA0.6P SQ (14:55)
[2022-06-04] MEDS ORDERED: [UNRECOGNIZED DRUG - OTHER] PO (14:55)
[2022-06-04] MEDS ORDERED: FLUT16SP22 NS (14:55)
[2022-06-04] MEDS ORDERED: ACHD5005 PO (14:55)
[2022-06-04] MEDS ORDERED: GABA300C PO (14:55)
[2022-06-04] MEDS ORDERED: PRAV80TA2 PO (14:55)
[2022-06-04] MEDS ORDERED: ASPI-999 PO (14:55)
[2022-06-04] MEDS ORDERED: CHOL1CRY2 PO (14:55)
[2022-06-04] MEDS ORDERED: HYDR28.336 TP (14:55)
[2022-06-04] MEDS ORDERED: METF-399 PO (14:55)
[2022-06-04] MEDS ORDERED: MAGN200T PO (14:55)
[2022-06-04] MEDS ORDERED: EZET10TA49 PO (14:55)
[2022-06-04] MEDS ORDERED: LISI40TA9 PO (14:55)
[2022-06-04] MEDS ORDERED: TRAM50TA3 PO (14:55)
[2022-06-04] MEDS ORDERED: CLOP75TA69 PO (14:55)
[2022-06-04] MEDS ORDERED: ESCI-2 PO (14:55)
[2022-06-04 15:27] VITALS: BP 138/63
--- NOTE | 2022-06-04 15:56 | Physical Therapy Evaluation ---
PT Evaluation-General Medical Diagnosis Admission Date Jun 04, 2022 at 15:18 Medical Diagnosis: CVA Onset Date: Jun 03, 2022 Therapy Diagnosis Therapy Diagnosis: Gait deficit, strength deficit Precautions Precautions/Isolations: Fall Prevention Weight Bear Status Right Lower Extremity: Right Partial Weight Bearing Heel Weight bearing only. Patient has a orthopedic shoe to decrease forefoot wt. Bearing, however stepson reports it is at home. Referral Physician: Dr. Lopez Reason for Referral: Evaluation/Treatment Medical History Reviewed History: Yes Social History Home: Single Level Current Living Status: Spouse Entry Into Home: Stairs With Railing PT Steps Into Home: 1 Prior Prior Level of Function SCALE: Activities may be completed with or without assistive devices. 2-Hqkcjhvmxa-ssusmoo completes the activity by him/herself with no assistance from a helper. 5-Set-up or Clean-up Assistance-helper sets up or cleans up; patient completes activity. [place] assists only prior to or following the activity. 4-Supervision or Touching Assistance-helper provides verbal cues and/or touching/steadying and/or contact guard assistance as patient completes activity. Assistance may be provided throughout the activity or intermittently. 3-Partial/Moderate Assistance-helper does LESS THAN HALF the effort. [place] lifts, holds or supports trunk or limbs, but provides less than half the effort. 2-Substantial/Maximal Assistance-helper does MORE THAN HALF the effort. [place] l ifts or holds trunk or limbs and provides more than half the effort. 3-Bdggageyt-cented does ALL the effort. Patient does none of the effort to complete the activity. Or, the assistance of 2 or more helpers is required for the patient to complete the activity. If activity was not attempted, code reason: 7-Patient Refused. 9-Not Applicable-not attempted and the patient did not perform the activity before the current illness, exacerbation or injury. 10-Not Attempted due to Environmental Limitations-(lack of equipment, weather restraints, etc.). 88-Not Attempted due to Medical Conditions or Safety Concerns. Bed Mobility: 6 Transfers (B,C,W/C): 6 Gait: 6 Stairs: 6 Indoor Mobility (Ambulation): Independent Stairs: Independent Prior Devices Use: Walker PT Evaluation-Current Subjective Patient in car upon arrival to hospital, agreeable to treatment. Patient rates pain currently at 0/10. Pain Section J - Health Conditions 1. Rarely or not at all 2. Occasionally 3. Frequently 4. Almost constantly 8. Unable to answer Pain Effect on Sleep: 1 Pain Interference with Therapy: 1 Pain Interference w/Day-to-Day: 1 Objective Patient Orientation: Person, Place, Time, Situation ROM/Strength ROM Lower Extremities WFLs AROM BLEs all planes Strength Lower Extremities Right 3/5 all planes; Left 3+/5 all planes Sensory Vision: Wears Glasses Hearing: Functional Sensation Right Lower Extremit: Impaired Sensation Left Lower Extremity: Impaired Sensation Lower Extremities Patient reports little to no sensation in bilateral feet to light touch Transfers Roll Left & Right (QC): 4 Sit to Lying (QC): 4 Lying to Sitting/Side of Bed(Q: 4 Sit to Stand (QC): 3 Chair/Bvv-xr-Wsuiq Xfer(QC): 3 Toilet Transfer (QC): 3 Car Transfer (QC): 3 Gait Does the Patient Walk?: Yes Mode of Locomotion: Walk Anticipated Mode of Locomotion: Walk Walk 10 feet (QC): 3 Walk 50 ft with 2 Turns(QC): 3 Walk 150 ft (QC): 3 Walking 10ft/uneven surface-QC: 3 Distance: 150 Gait Assistive Device: FWW Wheelchair Training Does the Pt Use a Wheelchair?: No Distance: 0 Wheel 50 ft with 2 turns (QC): 9 Wheel 150 ft (QC): 9 Stairs #of Steps: 12 1 Step (curb) (QC): 3 4 Steps (QC): 3 12 Steps (QC): 3 Patient ascends/descends 3 steps x 4 reps Balance Sitting Static: Good Sitting Dynamic: Good Standing Static: Fair Standing Dynamic: Poor Picking up an Object (QC): 3 Assessment/Needs Patient tolerated treatment well. She performs bed mobility with SBA and all observed transfers with min/mod A. Patient ambulates 150 feet with FWW, with min a and verbal cues for safety, progression, balance, heel only weight bearing on the right LE. Patient tends to veer to the right at times and states "I feel like I'll do better when they bring my other shoe." Patient ascends/descends 3 steps x 4 reps with min a and verbal cues, with bilateral rails. Patient ambulates back to her room and lies in bed. Patient in bed post treatment with all needs met, nursing notified, call light in hand. Rehab Potential: Fair PT Embossing Machine Tender Goals Embossing Machine Tender Goals PT Assisted Goals Time Frame: Jun 19, 2022 Roll Left to Right (QC): 6 Sit to Lying (QC): 6 Lying-Sitting on Side/Bed(QC): 6 Sit to Stand (QC): 6 Chair/Unz-qy-Frvtx Xfer(QC): 6 Toilet/Commode Transfer (QC): 6 Car Transfer (QC): 6 Does the Patient Walk: Yes Walk 10 feet (QC): 6 Walk 10ft-Uneven Surface(QC): 6 Walk 50ft with 2 Turns (QC): 6 Walk 150 ft (QC): 6 Does the Pt use WC or Scooter?: No Wheel 50 feet with 2 turns (QC: 9 Wheel 150 feet: 9 1 Step (curb) (QC): 6 4 Steps (QC): 4 12 Steps (QC): 4 Picking up an Object (QC): 6 PT Plan Problem List Problem List: Activity Tolerance, Functional Strength, Safety, Balance, Gait, Transfer, Bed Mobility, ROM Treatment/Plan Treatment Plan: Continue Plan of Care Treatment Plan: Bed Mobility, Education, Functional Activity Segun, Functional Strength, Group Therapy, Gait, Safety, Therapeutic Exercise, Transfers Treatment Duration: Jul 17, 2022 Frequency: At least 5 of 7 days/Wk (IRF) Estimated Hrs Per Day: 1.5 hours per day Patient and/or Family Agrees t: Yes Safety Risks/Education Patient Education: Gait Training, Transfer Techniques, Steps Teaching Recipient: Patient Teaching Methods: Demonstration, Discussion Response to Teaching: Verbalize Understanding, Return Demonstration Time Time In: 1509 Time Out: 1534 DATE: Jun 04, 2022 Total Billed Treatment Time: 25 Total Billed Treatment Visit, Monique Francisco JOHN A PT Jun 04, 2022 15:56
--- NOTE | 2022-06-04 16:49 | Occupational Therapy Eval ---
OT Evaluation-General/PLF Medical Diagnosis Admission Date Jun 04, 2022 at 15:18 Medical Diagnosis: CVA Onset Date: Jun 03, 2022 Therapy Diagnosis Therapy Diagnosis: reduced adl status Precautions Precautions/Isolations: Fall Prevention, Standard Precautions, Pressure Ulcer Weight Bear Status Location Restriction: RT FOOT (Weight bearing through heel with surgical shoe ) Referral Physician: Dr. 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 Initially pt to ER for c/o expressive aphasia. Per patient, she lives with her spouse who she is a primary caregiver for. (spouse has dementia). She was indep with all adls and iadls with use of 4ww inside the home and a cane out in the community. She has a supportive daughter/son in law that are currently assisting with care of her spouse while she is in the hospital. Reviewed History: Yes Social History Home: Single Level Current Living Status: Spouse Entry Into Home: Stairs With Railing Steps Into Home: 1 ADL-Prior Level of Function SCALE: Activities may be completed with or without assistive devices. 8-Pnmdxunmce-wggzqmw completes the activity by him/herself with no assistance from a helper. 5-Set-up or Clean-up Assistance-helper sets up or cleans up; patient completes activity. Donaldson assists only prior to or following the activity. 4-Supervision or Touching Assistance-helper provides verbal cues and/or touching /steadying and/or contact guard assistance as patient completes activity. Assistance may be provided throughout the activity or intermittently. 3-Partial/Moderate Assistance-helper does LESS THAN HALF the effort. Donaldson lifts, holds or supports trunk or limbs, but provides less than half the effort. 2-Substantial/Maximal Assistance-helper does MORE THAN HALF the effort. Donaldson lifts or holds trunk or limbs and provides more than half the effort. 9-Zwhdkpwxi-xklryj does ALL the effort. Patient does none of the effort to complete the activity. Or, the assistance of 2 or more helpers is required for the patient to complete the activity. If activity was not attempted, code reason: 7-Patient Refused. 9-Not Applicable-not attempted and the patient did not perform the activity before the current illness, exacerbation or injury. 10-Not Attempted due to Environmental Limitations-(lack of equipment, weather restraints, etc.). 88-Not Attempted due to Medical Conditions or Safety Concerns. Self Care: Independent Functional Cognition: Independent DME/Equipment: Bath Bench, Grab Bars, Shower, Tub/Shower Drive Self: Yes OT Current Status Subjective Pt denies pain, agreeable to evaluation. She reports expressive aphasia has improved greatly but there are still some episodes of word finding difficulties Appearance Pt returned to supine in bed, all needs within reach at OT departure. Mental Status/Objective Patient Orientation: Person, Place, Situation Attachments: IV Current Glasses/Contacts: Yes Hearing Aids: No Dentures/Partials: No Hand Dominance: Right Upper Extremity ROM R shoulder: ~150 degrees AROM, full AAROM L shoulder: WFL All other joints: WNL Upper Extremity Strength 3+/5 grossly ADL-Treatment Eating (QC): 5 (per patient report) Oral Hygiene (QC): 4 Shower/Bathe Self (QC): 4 (CGA) Upper Body Dressing (QC): 4 Lower Body Dressing (QC): 4 (CGA) On/Off Footwear (QC): 4 Toileting Hygiene (QC): 4 (CGA) Supine<>sit: SBA. Good sitting balance at EOB. Pt agreeable to complete sponge bath and change into gown for evening. She was able to doff upper body clothing without assist. CGA for all standing tasks such as clothing management and washing haily area. While seated, she washed upper body, thighs, and feet (with cross over method) without assist. She reports history of bladder incontinence. Education on timed voiding. She reports urgency to use toilet, thus commode brought near to bed. She was able to transfer on/off commode with use of min a and use of walker. Cues for walker management and to initiate clothing managem ent pre/post toileting. Independent with front haily care while seated. Min cues for weight bearing through heel on R foot. Pt able to demonstrate ability to don surgical shoe however needs min cues for velcro straps. Education OT Patient Education: Correct positioning, Energy conservation, Modified ADL techniques, Purpose of tx/functional activities, Rehab process, Safety issues, Transfer techniques, Use of adapted equipment Teaching Recipient: Patient Teaching Methods: Demonstration, Discussion Response to Teaching: Verbalize Understanding, Return Demonstration, Reinforcement Needed BIMS CAM BIMS Expression of Ideas and Wants: Difficulty Understanding Verbal Content: Understands Brief Interview/Mental Status: Yes IRF SARITA BIMS: IRF SARITA BIMS Response (Comments) Value Repitition of Three Words Three 3 Recalls Socks Yes, No Cue Required 2 Recalls Blue Yes, No Cue Required 2 Recalls Bed Yes, No Cue Required 2 Year Correct 3 Month Missed by 6 Days/1 Month 1 Day Correct 1 Total 14 Should Staff Asses. Mental St.: No CAM Mental Status Change/Baseline: 0 Inattention: 0 Disorganized thinkin Altered level of consciousness: 0 OT Short Term Goals Short Term Goals Time Frame: Jun 10, 2022 Eatin Oral hygiene: 5 Toileting hygiene: 5 Shower/bathe self: 5 Upper body dressin Lower body dressin Putting on/taking off footwear: 5 OT Infection Control Nurse Goals Longterm Goals Time Frame: Jun 16, 2022 Eating (QC): 6 Oral Hygiene (QC): 6 Toileting Hygiene (QC): 6 Shower/Bathe Self (QC): 6 Upper Body Dressing (QC): 6 Lower Body Dressing (QC): 6 On/Off Footwear (QC): 6 Additional Goals: 1-Demonstrate ADL Tasks, 2-Verbalize Understanding, 3- ImproveStrength/Segun 1=Demonstrate adherence to instructed precautions during ADL tasks. 2=Patient will verbalize/demonstrate understanding of assistive devices/modifications for ADL. 3=Patient will improve strength/tolerance for activity to enable patient to perform ADL's. OT Education/Plan Problem List/Assessment Assessment: Decreased Activ Tolerance, Decreased Safety Aware, Decreased UE Strength, Impaired Funct Balance, Impaired I ADL's, Impaired Self-Care Skills, Restricted Funct UE ROM Discharge Recommendations Plan/Recommendations: Continue POC Therapy Discharge Recommendati: Post Acute OT (home health OT) Treatment Plan/Plan of Care Treatment,Training & Education: Yes Patient would benefit from OT for education, treatment and training to promote independence in ADL's, mobility, safety and/or upper extremity function for ADL's. Plan of Care: ADL Retraining, Functional Mobility, Group Exercise/Act as Ind, Orthotic Fitting/Training, UE Funct Exercise/Act, UE Neuromus Re-Ed/Coord Treatment Duration: Jun 16, 2022 Frequency: At least 5 of 7 days/Wk (IRF) Estimated Hrs Per Day: 1.5 hours per day (75-90 min/day ) Agreement: Yes Rehab Potential: Good Time Start Time: 16:10 Stop Time: 16:55 DATE: Jun 04, 2022 Total Time Billed (hr/min): 45 Billed Treatment Time 1 visit EVM (10 min) ADL x2 (35 min) Anne Marie Luu OT Jun 04, 2022 16:49
[2022-06-04] MEDS ORDERED: FLU QUAD HIGH DOSE 240 MCG/0.7 ML 2022-23 (FLUZONE) IM ONE (17:00)
--- NOTE | 2022-06-04 17:05 | Progress Note ---
MIGUELBERTOYAIR Steven 06/04/22 1705: Progress Note CC: Expressive aphasia HPI: Patient is a 82-year-old female with a history of HTN, T2DM, and neuropathy who presented to [facility]: on 06/01 for expressive aphasia. Patient states that at 7:30 on 06/01 she suddenly became confused and had difficulties finding words. She states that she was eventually able to call her son-in-law but was only able to babble and couldn't express her thoughts. Her daughter called EMS which took her to the ED. CT of the head showed no acute changes. Her d-dimer was elevated at 2.05. CT angiogram showed no signs of a PE. She was transferred to [facility] in [place] on 06/02 and her symptoms have improved over the last few days. An echo performed on 06/03 showed mitral stenosis, pulmonary HTN, atrial enlargement, aortic sclerosis and diastolic dysfunction. When I entered the room the patient was awake and alert in her bed, no family at bedside. The patient reports that her aphasia has improved greatly since the start of her symptoms, but she occasionally has a hard time finding the right word or expressing her thoughts. She also states that she still feels discombobulated and unsure of what to do at times. The patient states that she is unable to stand which she reports she has not tried to do until today and just noticed. When asked to elaborate the patient seemed slightly confused and had a hard time explaining. She states that if she had her house slippers on top of her booties she might be able to walk. The patient did endorse weakness in their lower extremities but it is unclear if this is what she was intending to communicate. Patient is anxious about her . He has dementia and she is the primary caregiver. She states that she helps him do most of his daily activities. They do have home health and currently they have family staying with him, but she is anxious that he may need to be placed in an assisted-living facility. PMH: HTN,HLD, T2DM, anxiety, chronic coccygeal pain, GERD, AV block requiring pacemaker, Hx of endometrial adenocarcinoma PSH: Cataract, gallbladder, pacemaker, inguinal hernia, hysterectomy, salpingo- oophorectomy, right great toe partial amputation, hemorrhoid All: NKDA Home meds:hydrocodone-acetaminophen, lexapro, ezetimibe, flonase, gabapentin, glimepiride, victoza, lisinopril, metformin, omeprazole pramipexole, pravastatin, tramadol SH: Never smoker, denies illicit drug use, endorses about 4 drinks a week FH: Sister- heart disease, Mother- heart disease, Father- heart disease ROS: Endorses back pain states due to chronic coccygeal pain. Denies N/V, fever, chills, constipation, diarrhea, joint pain, chest pain, shortness of breath, changes in vision, hearing Exam: Patient is well developed and well nourished in no acute distress. Patient is alert and oriented but at times seems slightly confused. HRRR. PERRLA. Lungs clear to auscultation b/l. Muscle strength 5/5 b/l upper and lower extremities. Peripheral sensation intact. Distal pulses 2+ b/l. Neck supple, nontender. Abdomen soft, nontender. Mild edema noted in R lower extremity, skin over great toe amputation healing well. A: TIA Expressive aphasia Debility AMS HTN HLD T2DM Neuropathy GERD Chronic coccygeal pain Anxiety P: OT/PT Pain control as needed Aspirin Plavix Monitor BP Monitor sugars, patient states they were high during her stay at [facility] AMI LATIF DO 06/05/22 0543: Supervisory-Addendum Brief Verification & Attestation Participated in pt care: history, MDM, physical Personally performed: exam, history, MDM, supervision of care Care discussed with: Medical Student Procedures: n/a Results interpretation: Verified all documentation Verification and Attestation of Medical Student E/M Service A medical student performed and documented this service in my presence. I reviewed and verified all information documented by the medical student and made modifications to such information, when appropriate. I personally performed the physical exam and medical decision making. Ami Latif, Jun 05, 2022,05:43 YAIR HURT Jun 04, 2022 17:05 AMI LATIF DO Jun 05, 2022 05:43
[2022-06-04] MEDS: MAGNESIUM OXIDE (MAG-OX)400 MG TAB PO SCH (17:42)
[2022-06-04] MEDS: metFORMIN 500 MG (GLUCOPHAGE) TAB PO SCH (17:42)
[2022-06-04] MEDS ORDERED: NON-FORMULARY MEDICATION 1 EA EA (Metformin HCl 1,000 MG) PO SCH (18:00)
[2022-06-04 20:04] VITALS: BP 144/76
[2022-06-04] MEDS ORDERED: MAGNESIUM 400 MG PO SCH (21:00)
[2022-06-04] MEDS ORDERED: NON-FORMULARY MEDICATION 1 EA EA (Escitalopram Oxalate 10 MG) PO SCH (21:00)
[2022-06-04] MEDS: HYDROCORTISONE 1% CREAM 30 GM TUBE TP SCH (21:11)
[2022-06-04] MEDS: inSUlin ASPART (NovoLOG) 1 UNIT/0.01 ML (CHARGE PER UNIT) SC SCH (21:11)
[2022-06-04] MEDS: DOCUSATE SODIUM 100 MG (COLACE) CAP PO SCH (21:12)
[2022-06-04] MEDS: SENNA W/DOCUSATE (SENOKOT S) TABLET PO SCH (21:12)
[2022-06-04] MEDS: MELATONIN 3 MG TABLET PO PRN (21:12)
[2022-06-04] MEDS: polyethylene glycoL POWDER 17 GM (MIRALAX) PACK PO SCH (21:14)
[2022-06-04] MEDS: PRAMIPEXOLE 0.125 MG (MIRAPEX) TABLET PO SCH (21:14)
[2022-06-04] MEDS: GABAPENTIN 300 MG (NEURONTIN) CAP PO SCH (21:14)
[2022-06-05 05:49] LABS: BASOPHILS # (AUTO) 0.1 10^3/uL (0.0-0.1); BASOPHILS % (AUTO) 1 % (0-10); EOSINOPHILS # (AUTO) 0.3 10^3/uL (0.0-0.3); EOSINOPHILS % (AUTO) 6 % (0-10); HEMATOCRIT 33 % (35-52); LYMPHOCYTES # (AUTO) 1.4 10^3/uL (1.0-4.0); LYMPHOCYTES % (AUTO) 24 % (12-44); MEAN CORPUSCULAR HEMOGLOBIN 27 pg (25-34); MEAN CORPUSCULAR HGB CONC 33 g/dL (32-36); MEAN CORPUSCULAR VOLUME 83 fL (80-99); MEAN PLATELET VOLUME 10.3 fL (9.0-12.2); MONOCYTES % (AUTO) 18 % (0-12); NEUTROPHILS % (AUTO) 51 % (42-75); PLATELET COUNT 291 10^3/uL (130-400); WHITE BLOOD COUNT 5.7 10^3/uL (4.3-11.0)
[2022-06-05] MEDS: inSUlin ASPART (NovoLOG) 1 UNIT/0.01 ML (CHARGE PER UNIT) SC SCH ×4 (05:49→21:00)
[2022-06-05 06:04] LABS: ALBUMIN 3.1 GM/DL (3.2-4.5); BILIRUBIN,TOTAL 0.3 MG/DL (0.1-1.0); CALCIUM 8.8 MG/DL (8.5-10.1); CREATININE SERUM 0.67 MG/DL (0.60-1.30); POTASSIUM 3.6 MMOL/L (3.6-5.0)
--- NOTE | 2022-06-05 06:42 | Individualized Plan of Care ---
Individualized Plan of Care Rehab Nursing IPOC Order Admission Date Jun 04, 2022 at 15:18 Current Orders Orders Admission Order(Inpt,Obs,Sdc) (06/04/22 11:14) Vital Signs: Per Unit Policy ( 08,16,00 (06/04/22 11:14) Seb Cabral (06/04/22 11:14) Sequential Compression Device (06/04/22 11:14) Laundry Equipment Operator-Inpt Rehab Con (06/04/22 11:14) Rehab Nursing Orders-Ipoc (06/04/22 11:14) Physical Therapy Rehab Orders (06/04/22 11:14) Occupational Therapy Rehab Ord (06/04/22 11:14) Speech Therapy Rehab Orders (06/04/22 11:14) Cbc With Automated Diff (06/05/22 06:00) Comprehensive Metabolic Panel (06/05/22 06:00) Precautions (Aru) (06/04/22 11:14) Weekly Weight WEEK (06/04/22 11:14) Rehab-Intensity Of Therapy (06/04/22 11:14) Initiate Admission Nursing Pro .admission (06/04/22 11:14) Alprazolam Tablet (Xanax Tablet) (06/04/22 11:15) Calcium Carbonate Chew Tablet (Antacid C (06/04/22 11:15) Diphenhydramine Tablet (Benadryl Tablet) (06/04/22 11:15) Docusate Sodium Capsule (Colace Capsule) (06/04/22 21:00) Docusate Sodium Capsule (Colace Capsule) (06/04/22 11:15) Bisacodyl Suppository (Dulcolax Supposit (06/04/22 11:15) Lactulose Oral Solution (Enulose Oral So (06/04/22 11:15) Na Phos/Na Biphos Enema (Fleet Enema Hieu (06/04/22 11:15) Guaifenesin/Codeine Syrup (Robitussin Ac (06/04/22 11:15) Loperamide Tablet (Imodium Tablet) (06/04/22 11:15) Melatonin Tablet (Melatonin Tablet) (06/04/22 11:15) Polyethylene Glycol Powder Pkt (Miralax (06/04/22 21:00) Ondansetron Oral Dissolve Tab (Zofran (06/04/22 11:15) Senna S Tablet (Senokot S Tablet) (06/04/22 21:00) Acetaminophen Tablet/Caplet (Tylenol T (06/04/22 11:15) Code/Resuscitation (06/04/22 11:14) Initiate Admission Nursing Pro .admission (06/04/22 11:14) Transfer - Bed/Room/Location (06/04/22 15:18) Patient Visit (06/04/22 ) Pt Eval Moderate Complexity (06/04/22 ) Gait Training, Ea 15 Min (06/04/22 ) Glucerna (06/04/22 16:04) Aspirin Chewable Tablet (Baby Aspirin Ch (06/05/22 09:00) Clopidogrel Tablet (Plavix Tablet) (06/05/22 09:00) Ezetimibe Tablet (Zetia Tablet) (06/05/22 09:00) Fluticasone Nasal Winkelman (Flonase Nasal S (06/05/22 09:00) Gabapentin Capsule/Tablet (Neurontin Cap (06/04/22 21:00) Hydrocodone/Apap 5/325 Tablet (Lortab 5 (06/04/22 16:15) Hydrocortisone 1% Cream (Hydrocortisone (06/04/22 21:00) Lisinopril Tablet (Zestril Tablet) (06/05/22 09:00) Omeprazole (Non-Formulary) (Prilosec (No (06/05/22 09:00) Pramipexole Tablet (Mirapex Tablet) (06/04/22 21:00) (Nf) Cholecalciferol (Vitamin D3) (Mita (06/05/22 09:00) (Nf) Escitalopram Oxalate (06/04/22 21:00) (Nf) Liraglutide (Victoza 2-Devin) (06/05/22 09:00) (Nf) Magnesium (06/04/22 21:00) (Nf) Metformin Hcl (06/04/22 18:00) (Nf) Pravastatin Sodium (06/05/22 09:00) (Nf) [Gu-Nd-Kbnyhg-Zinc] (06/05/22 09:00) Flu High Dose Quad [id number] (Fluzone Hi (06/04/22 17:00) Cholecalciferol Capsule/Tablet (Vitamin (06/05/22 09:00) Citalopram Tablet (Celexa Tablet) (06/04/22 21:00) Pantoprazole Tablet (Protonix Tablet) (06/05/22 09:00) Metformin Tablet (Glucophage Tablet) (06/04/22 18:00) Atorvastatin Tablet (Lipitor Tablet) (06/05/22 09:00) Magnesium Oxide Tablet (Mag Ox Tablet) (06/04/22 18:00) Therapeutic Multivitamin Tab (Vitamins, (06/05/22 07:00) Tramadol Tablet (Ultram Tablet) (06/04/22 17:15) Accucheck Achs ACHS (06/04/22 17:30) Insulin Aspart (Novolog) (Novolog (Charg (06/04/22 21:00) Cho 60g/M 0snack (16-2000 Carlos) (06/04/22 Dinner) Patient Visit (06/05/22 ) Exercise Therap, Ea 15 Min (06/05/22 ) Functional Activities, Ea 15 (06/05/22 ) Glimepiride Tablet (Amaryl Tablet) (06/05/22 11:30) Rehab Nursing Orders: Ongoing Assess. of Cognitive Status, Ongoing Assess. of Function Status, Bladder Management, Bladder Scan, Bladder Training, Bowel Management, Bowel Training, Disease Management & Educaiton, DVT Prophylaxis, Fall Prevention, Fluid/Electrolyte/Nutrition Mgmt, Infection Prevention, Medication Management & Education, Management of Risks & Complications, Management of Skin Intergrity, Nutrition Management, Pain Management, Patient/Family Support, Wound Management Intensity of Therapy to be met Patient to be seen: Min.3h per day/5 of 7d PT IPOC Problem List: Activity Tolerance, Functional Strength, Safety, Balance, Gait, T ransfer, Bed Mobility, ROM Treatment Plan: Continue Plan of Care Bed Mobility, Education, Functional Activity Segun, Functional Strength, Group Therapy, Gait, Safety, Therapeutic Exercise, Transfers Treatment Duration: Jul 17, 2022 Frequency: At least 5 of 7 days/Wk (IRF) Estimated Hrs Per Day: 1.5 hours per day OT IPOC Problems: Decreased Activ Tolerance, Decreased Safety Aware, Decreased UE Strength, Impaired Funct Balance, Impaired I ADL's, Impaired Self-Care Skills, Restricted Funct UE ROM OT Treatment, Training and Edu: Yes Plan of Care: ADL Retraining, Functional Mobility, Group Exercise/Act as Ind, Orthotic Fitting/Training, UE Funct Exercise/Act, UE Neuromus Re-Ed/Coord Treatment Duration: Jun 16, 2022 Frequency: At least 5 of 7 days/Wk (IRF) Estimated Hrs Per Day: 1.5 hours per day (75-90 min/day ) ST IPOC Speech Therapy Treatment Plan: Continue Plan of Care Treatment Duration: Jun 04, 2022 Frequency: Modified Program (IRF) Estimated Hrs Per Day: Other Laundry Equipment Operator/Case Mgmt Laundry Equipment Operator/Case Managemen: Discharge Planning Dietitian/Rater Associate Dietitian/Rater Associate to monitor nutritional status and make changes and/or recommendations as needed and work with speech pathology on dietary upgrades as the occur. Physician IPOC Medical Issues being managed closely and that require the 24 hour availability of a physician: Recent CVA with expressive aphasia and elevated sugar with recent toe amputation will require close monitoring of vitals and sugars in order to prevent d ecompensation Medical Issues: Bowel/Bladder Function, DVT Prophylaxis, Falls Precautions, Fluid/Electrolyte/Nutrition Balance, Infection Protection, Pain Management, Weight Bearing Precautions, Wound Care Brief Synthesis of Preadmission Screen, Post-Admission Evaluation, and Therapy Evaluations: PT OT will require close monitoring while increasing stamina of ambulation along with ST working to assure expressive aphasia is resolved and regaining independent ADL's Medical Prognosis: Good Anticipated Length of Stay: 7 days RAJESH LATIF DO Jun 05, 2022 06:42
--- NOTE | 2022-06-05 06:42 | PM&R Progress Note ---
Subjective HPI/CC On Admission Date Seen by Provider: Jun 05, 2022 Time Seen by Provider: 10:30 Subjective/Events-last exam 06/05/2022: Doing well Settling in well No expressive aphasia noted Overall weak BM+ Increased sugar so will start home dose of Glimepride Review of Systems General: Fatigue, Malaise Neurological: Weakness, Incoordination Objective Exam Vital Signs Vital Signs Date Time Temp Pulse Resp B/P (MAP) Pulse Ox O2 Delivery O2 Flow Rate FiO2 06/05/22 21:00 95 Room Air 06/05/22 20:44 37.1 86 16 150/71 (97) Capillary Refill : General Appearance: No Apparent Distress, WD/WN, Anxious, Chronically ill, Thin HEENT: PERRL/EOMI, Normal ENT Inspection, Pharynx Normal Neck: Full Range of Motion, Normal Inspection, Non Tender, Supple, Carotid Bruit Respiratory: Chest Non Tender, Lungs Clear, Normal Breath Sounds, No Accessory Muscle Use, No Respiratory Distress Cardiovascular: Regular Rate, Rhythm, No Edema, No Gallop, No JVD, No Murmur, Normal Peripheral Pulses Gastrointestinal: Normal Bowel Sounds, No Organomegaly, No Pulsatile Mass, Non Tender, Soft Back: Normal Inspection, No CVA Tenderness, No Vertebral Tenderness Extremity: Normal Capillary Refill, Normal Inspection, Normal Range of Motion, Non Tender, No Calf Tenderness, No Pedal Edema Neurologic/Psychiatric: Alert, Oriented x3, Normal Mood/Affect, manager of international II-XII Norm as Tested, Abnormal Gait, Motor Weakness (Generalized) Skin: Normal Color, Warm/Dry Lymphatic: No Adenopathy Results/Procedures Lab Patient resulted labs reviewed. FIM Transfers Therapy Code Descriptions/Definitions Functional Wilson Measure: 0=Not Assessed/NA 4=Minimal Assistance 1=Total Assistance 5=Supervision or Setup 2=Maximal Assistance 6=Modified Wilson 3=Moderate Assistance 7=Complete IndependenceSCALE: Activities may be completed with or without assistive devices. 3-Mnjsxeygfd-qjtlpvt completes the activity by him/herself with no assistance from a helper. 5-Set-up or Clean-up Assistance-helper sets up or cleans up; patient completes activity. [place] assists only prior to or following the activity. 4-Supervision or Touching Assistance-helper provides verbal cues and/or touching/steadying and/or contact guard assistance as patient completes activity. Assistance may be provided throughout the activity or intermittently. 3-Partial/Moderate Assistance-helper does LESS THAN HALF the effort. [place] lifts, holds or supports trunk or limbs, but provides less than half the effort. 2-Substantial/Maximal Assistance-helper does MORE THAN HALF the effort. [place] lifts or holds trunk or limbs and provides more than half the effort. 2-Obxdhxkys-kfidwl does ALL the effort. Patient does none of the effort to complete the activity. Or, the assistance of 2 or more helpers is required for the patient to complete the activity. If activity was not attempted, code reason: 7-Patient Refused. 9-Not Applicable-not attempted and the patient did not perform the activity before the current illness, exacerbation or injury. 10-Not Attempted due to Environmental Limitations-(lack of equipment, weather restraints, etc.). 88-Not Attempted due to Medical Conditions or Safety Concerns. Roll Left to Right (QC): 4 Sit to Lying (QC): 4 Sit to Stand (QC): 3 Chair/Gau-lw-Ucnvo Xfer(QC): 3 Car Transfer (QC): 3 Gait Training Does the Patient Walk?: Yes Walk 10 feet (QC): 3 Walk 50 ft with 2 Turns(QC): 3 Walk 150 ft (QC): 3 Walking 10ft/uneven surface-QC: 3 Gait Assistive Device: FWW Wheelchair Training Does the Pt Use a Wheelchair?: No Distance: 0 Wheel 50 ft with 2 turns (QC): 9 Wheel 150 ft (QC): 9 Stair Training #of Steps: 12 1 Step (curb) (QC): 3 4 Steps (QC): 3 12 Steps (QC): 3 Balance Picking up an Object (QC): 3 ADL-Treatment Eating (QC): 5 (per patient report) Oral Hygiene (QC): 4 Shower/Bathe Self (QC): 4 (CGA) Upper Body Dressing (QC): 4 Lower Body Dressing (QC): 4 (CGA) On/Off Footwear (QC): 4 Toileting Hygiene (QC): 4 (CGA) Assessment/Plan Assessment and Plan Assess & Plan/Chief Complaint Assessment: Acute ischemic stroke 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
[2022-06-05] MEDS: MULTIVIT W/MINERALS TAB (THERAGRAN M) PO SCH (06:43)
[2022-06-05] MEDS: HYDROcodone/APAP 5 MG/325 MG (LORTAB) TAB PO PRN (06:48)
[2022-06-05] MEDS: metFORMIN 500 MG (GLUCOPHAGE) TAB PO SCH ×2 (07:40→16:56)
[2022-06-05] MEDS: GABAPENTIN 300 MG (NEURONTIN) CAP PO SCH ×3 (07:41→21:00)
[2022-06-05] MEDS: CLOPIDOGREL 75 MG (PLAVIX) TABLET PO SCH (07:41)
[2022-06-05] MEDS: MAGNESIUM OXIDE (MAG-OX)400 MG TAB PO SCH ×2 (07:41→16:56)
[2022-06-05] MEDS: eZETimibe 10 MG (ZETIA) TABLET PO SCH (07:41)
[2022-06-05] MEDS: ASPIRIN 81 MG CHEW (CHILDREN'S ASA) PO SCH (07:41)
[2022-06-05] MEDS: VITAMIN D3 25 MCG (1,000 UNITS) TABLET PO SCH (07:42)
[2022-06-05] MEDS: PANTOPRAZOLE 20 MG TABLET (PROTONIX) PO SCH (07:42)
[2022-06-05] MEDS: lisINopril 40 MG (PRINIVIL) TABLET PO SCH (07:42)
[2022-06-05] MEDS: HYDROCORTISONE 1% CREAM 30 GM TUBE TP SCH ×3 (07:43→20:57)
[2022-06-05 07:45] VITALS: BP 141/79
[2022-06-05] MEDS: FLUTICASONE NASAL SPRAY (FLONASE) 16 GM BTL NS SCH (07:51)
[2022-06-05] MEDS ORDERED: [UNRECOGNIZED DRUG - OTHER] PO SCH (09:00)
[2022-06-05] MEDS ORDERED: OMEPRAZOLE 20 MG (PriLOSEC) CAP NON-FORMULARY PO SCH (09:00)
[2022-06-05] MEDS ORDERED: NON-FORMULARY MEDICATION 1 EA EA (Pravastatin Sodium 80 MG) PO SCH (09:00)
[2022-06-05] MEDS ORDERED: CHOLECALCIFEROL 25 MCG PO SCH (09:00)
[2022-06-05] MEDS ORDERED: NON-FORMULARY MEDICATION 1 EA EA (Liraglutide (Victoza 2-Pak) 1.2 MG) SQ SCH (09:00)
--- NOTE | 2022-06-05 09:08 | Occupational Ther Daily Note ---
OT Current Status-Daily Note Subjective Pt alert, lying in bed. Pt agrees to therapy. No c/o pain at this time. Nrsg in room. Pt demonstrates minimal aphasia throughout session. Co-treat with PT ([id number]), skills of 2 clinicians required to decrease fall risk, increase dynamic stability during balance challenging tasks and education for safety in all functional mobility and ADLs. PT focusing on ambulation, transfers and dynamic balancing while OT focusing on functional mobility, ADLs and B UE placement during transfers and tasks. Mental Status/Objective Patient Orientation: Person, Place, Time, Situation Attachments: IV (midline), Other-See Comments (pacemaker, walking shoe) ADL-Treatment Pt agrees to shower. Independent with eating. Pt takes increased time for sup ine to sitting EOB with SBA for safety. Pt had 3 LOB toward R side while sitting EOB. Pt demonstrated ability to don/doff socks and shoes using figure 4 technique, assist to tie shoes and velcro walking shoe. Pt used 4WW to ambulate to toilet. CGA for all transfers and functional mobility due to pt's LOB toward R side or back. CGA for toilet transfer. CGA for clothing manipulation, pt cleanses self sitting on toilet. CGA for shower transfer. Sitting on bench 100% of the time, pt completes shower using hand held shower and grabbars with SBA for safety. After set up, pt able to simulate donning/doffing shirt using hospital gown (pt declines using ARU clothing). SBA to thread briefs over feet due to balance breaks toward R side, CGA in standing to hike over hips. Pt stood at sink with close SBA to complete oral care by self. Pt had 2 incontinence episodes during session requiring changing of briefs. Therapy Code Descriptions/Definitions Functional [place] Measure: 0=Not Assessed/NA 4=Minimal Assistance 1=Total Assistance 5=Supervision or Setup 2=Maximal Assistance 6=Modified [place] 3=Moderate Assistance 7=Complete IndependenceSCALE: Activities may be completed with or without assistive devices. 5-Qigcavlmnn-rknqaaj completes the activity by him/herself with no assistance from a helper. 5-Set-up or Clean-up Assistance-helper sets up or cleans up; patient completes activity. [place] assists only prior to or following the activity. 4-Supervision or Touching Assistance-helper provides verbal cues and/or touching/steadying and/or contact guard assistance as patient completes activity. Assistance may be provided throughout the activity or intermittently. 3-Partial/Moderate Assistance-helper does LESS THAN HALF the effort. [place] lifts, holds or supports trunk or limbs, but provides less than half the effort. 2-Substantial/Maximal Assistance-helper does MORE THAN HALF the effort. [place] lifts or holds trunk or limbs and provides more than half the effort. 8-Xvajumvvq-sqdnod does ALL the effort. Patient does none of the effort to complete the activity. Or, the assistance of 2 or more helpers is required for the patient to complete the activity. If activity was not attempted, code reason: 7-Patient Refused. 9-Not Applicable-not attempted and the patient did not perform the activity before the current illness, exacerbation or injury. 10-Not Attempted due to Environmental Limitations-(lack of equipment, weather restraints, etc.). 88-Not Attempted due to Medical Conditions or Safety Concerns. Eating (QC): 6 Oral Hygiene (QC): 4 Shower/Bathe Self (QC): 4 Lower Body Dressing (QC): 4 On/Off Footwear: 4 Toileting Hygiene (QC): 4 Toilet Transfer (QC): 4 Covered pacemaker for shower, per nrsg. Pt requires encouragement to wear walking shoe and maintaining walking on R heel per eval. Other Treatment Pt completed dynamic standing tasks while using B UE's with gross and fine motor skills to increase strength, balance, cognition and visual perception. Pt required CGA throughout session due to LOB noted as above. Pt required verbal/gestural cues for cognitive tasks. Pt demonstrated good hand eye coordination throughout task. After session, pt left in care of PT. All needs met. Education OT Patient Education: Modified ADL techniques, Purpose of tx/functional activities, Reviewed precautions, Safety issues, Transfer techniques OT Short Term Goals Short Term Goals Time Frame: Jun 10, 2022 Eatin Oral hygiene: 5 Toileting hygiene: 5 Shower/bathe self: 5 Upper body dressin Lower body dressin Putting on/taking off footwear: 5 OT Long-Term Goals [employer] Goals Time Frame: Jun 16, 2022 Acute change in mental status: 0 Inattention: 0 Disorganized thinkin Altered level of consciousness: 0 Eating (QC): 6 Oral Hygiene (QC): 6 Toileting Hygiene (QC): 6 Shower/Bathe Self (QC): 6 Upper Body Dressing (QC): 6 Lower Body Dressing (QC): 6 On/Off Footwear (QC): 6 Additional Goals: 1-Demonstrate ADL Tasks, 2-Verbalize Understanding, 3-ImproveStrength/Segun 1=Demonstrate adherence to instructed precautions during ADL tasks. 2=Patient will verbalize/demonstrate understanding of assistive devices/modifications for ADL. 3=Patient will improve strength/tolerance for activity to enable patient to perform ADL's. OT Education/Plan Problem List/Assessment Assessment: Decreased Activ Tolerance, Decreased UE Strength, Impaired Coordination, Impaired Funct Balance, Impaired Self-Care Skills Discharge Recommendations Plan/Recommendations: Continue POC Treatment Plan/Plan of Care Patient would benefit from OT for education, treatment and training to promote independence in ADL's, mobility, safety and/or upper extremity function for ADL's. Plan of Care: ADL Retraining, Functional Mobility, Group Exercise/Act as Ind, Orthotic Fitting/Training, UE Funct Exercise/Act, UE Neuromus Re-Ed/Coord Treatment Duration: Jun 16, 2022 Frequency: At least 5 of 7 days/Wk (IRF) Estimated Hrs Per Day: 1.5 hours per day (75-90 min/day ) Agreement: Yes Rehab Potential: Good Time Start Time: 07:30 Stop Time: 09:00 DATE: Jun 05, 2022 Total Time Billed (hr/min): 90 Billed Treatment Time 1 visit-ADL 5 (70 min) FA 1 (20 min) co-treat with PT [id number], individual [id number] VIVIANA IBARRA Jun 05, 2022 09:08
--- NOTE | 2022-06-05 09:38 | Physical Therapy Daily Note ---
PT Daily Note-Current Subjective Patient in restroom pre tx, agrees to PT, has no complaints of pain. Will be co-treating with OT for part of tx due to poor patient mobility, strength, endurance, severe debility, coordinate UE and LE during activity, safety and reduce risk of falls. Pain Section J - Health Conditions 1. Rarely or not at all 2. Occasionally 3. Frequently 4. Almost constantly 8. Unable to answer Pain Effect on Sleep: 1 Pain Interference with Therapy: 1 Pain Interference w/Day-to-Day: 1 Appearance Patient in bed post tx with nurse call, phone, tray, all needs met, bed alarm on. Mental Status Patient Orientation: Person, Place, Situation surgical shoe RLE Transfers SCALE: Activities may be completed with or without assistive devices. 6-Fwwfdzluks-ukwmmmc completes the activity by him/herself with no assistance from a helper. 5-Set-up or Clean-up Assistance-helper sets up or cleans up; patient completes activity. [place] assists only prior to or following the activity. 4-Supervision or Touching Assistance-helper provides verbal cues and/or touching/steadying and/or contact guard assistance as patient completes activity. Assistance may be provided throughout the activity or intermittently. 3-Partial/Moderate Assistance-helper does LESS THAN HALF the effort. [place] lifts, holds or supports trunk or limbs, but provides less than half the effort. 2-Substantial/Maximal Assistance-helper does MORE THAN HALF the effort. [place] lifts or holds trunk or limbs and provides more than half the effort. 1-Bhcfkrzvy-klnwdr does ALL the effort. Patient does none of the effort to complete the activity. Or, the assistance of 2 or more helpers is required for the patient to complete the activity. If activity was not attempted, code reason: 7-Patient Refused. 9-Not Applicable-not attempted and the patient did not perform the activity before the current illness, exacerbation or injury. 10-Not Attempted due to Environmental Limitations-(lack of equipment, weather restraints, etc.). 88-Not Attempted due to Medical Conditions or Safety Concerns. Roll Left & Right (QC): 6 Sit to Lying (QC): 6 Sit to Stand (QC): 4 Chair/Fyj-ux-Gyzzr Xfer(QC): 4 Toilet Transfer (QC): 4 CGA for sit to stand and transfers. Patient is showering with OT pre tx, assist with positioning and safety for dressing and ADL's standing at the sink. P atient needs occasional cues for hand placement and safety during transfers. Weight Bearing Right Lower Extremity: Right Partial Weight Bearing Heel Weight bearing only. Patient has a orthopedic shoe to decrease forefoot wt. Bearing, however esauon reports it is at home. Gait Training Distance: 150'x2, 120' Walk 10 feet (QC): 4 Walk 50 ft with 2 Turns(QC): 4 Walk 150 ft (QC): 4 Gait Persons Needed: 1 Gait Assistive Device: Walker 4 Wheeled CGA, slow ambulation, patient states her legs get tired Exercises Seated Therapy Exercises: Ankle pumps, Long arc quads, Hip flexion, Hip abd/add (with ball and YTB) Seated Reps: [address] Ex=Flex, Abd, Ext (RLE only), Marching (RLE only), Mini squats Standing Reps: 15 NuStep Minutes: 15 NuStep Workload: 4 Treatments PT performed bed mobility and transfers, ambulation, strengthening, standing and balance during an activity (standing while performing UE activity), positioning and safety during dressing and ADL's, OT performed UE standing activity, bathing, dressing, ADL's, UE positioning and safety during activity. 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 [facility] Goals PT [facility] Goals Time Frame: Jun 19, 2022 Roll Left & Right (QC): 6 Sit to Lying (QC): 6 Lying-Sitting on Side/Bed(QC): 6 Sit to Stand (QC): 6 Chair/Gpw-fd-Nphkh Xfer(QC): 6 Toilet Transfer (QC): 6 Car Transfer (QC): 6 Does the Patient Walk: Yes Walk 10 feet (QC): 6 Walk 50ft with 2 Turns (QC): 6 Walk 150 ft (QC): 6 Walking 10ft on Uneven Surface: 6 1 Step (curb) (QC): 6 4 Steps (QC): 4 12 Steps (QC): 4 Picking up an Object (QC): 6 Does the Pt use WC or Scooter?: No Wheel 50 feet with 2 turns (QC: 9 Wheel 150 feet: 9 PT Plan Problem List Problem List: Activity Tolerance, Functional Strength, Safety, Balance, Gait, Transfer, Bed Mobility, ROM Treatment/Plan Treatment Plan: Continue Plan of Care Treatment Plan: Bed Mobility, Education, Functional Activity Segun, Functional Strength, Group Therapy, Gait, Safety, Therapeutic Exercise, Transfers Treatment Duration: Jul 17, 2022 Frequency: At least 5 of 7 days/Wk (IRF) Estimated Hrs Per Day: 1.5 hours per day Patient and/or Family Agrees t: Yes Safety Risks/Education Patient Education: Gait Training, Transfer Techniques, Reviewed Precautions, Correct Positioning, Safety Issues Teaching Recipient: Patient Teaching Methods: Demonstration, Discussion Response to Teaching: Reinforcement Needed Time Time In: 819 Time Out: 50 DATE: Jun 05, 2022 Total Billed Treatment Time: 90 Total Billed Treatment 1 visit EX 30' FA 60' SARA OSORIO PT Jun 05, 2022 09:38
[2022-06-05] MEDS: SENNA W/DOCUSATE (SENOKOT S) TABLET PO SCH ×2 (10:52→20:59)
[2022-06-05] MEDS: DOCUSATE SODIUM 100 MG (COLACE) CAP PO SCH ×2 (10:52→21:00)
[2022-06-05] MEDS: polyethylene glycoL POWDER 17 GM (MIRALAX) PACK PO SCH ×2 (10:52→21:00)
[2022-06-05] MEDS ORDERED: GLIM4TAB5 PO (11:35)
[2022-06-05] MEDS: GLIMEPIRIDE 2 MG (AMARYL) TAB PO SCH ×2 (11:54→21:00)
[2022-06-05 20:44] VITALS: BP 150/71
[2022-06-05] MEDS: PRAMIPEXOLE 0.125 MG (MIRAPEX) TABLET PO SCH (20:58)
[2022-06-06] MEDS: inSUlin ASPART (NovoLOG) 1 UNIT/0.01 ML (CHARGE PER UNIT) SC SCH ×4 (06:20→21:20)
[2022-06-06] MEDS: MULTIVIT W/MINERALS TAB (THERAGRAN M) PO SCH (06:57)
--- NOTE | 2022-06-06 07:54 | PM&R Progress Note ---
Subjective HPI/CC On Admission Date Seen by Provider: Jun 06, 2022 Time Seen by Provider: 15:30 Subjective/Events-last exam 06/06/2022: Doing well Improved sugars No pain reported Weakness noted 06/05/2022: Doing well Settling in well No expressive aphasia noted Overall weak BM+ Increased sugar so will start home dose of Glimepride Review of Systems General: Fatigue, Malaise Objective Exam Vital Signs Vital Signs Date Time Temp Pulse Resp B/P (MAP) Pulse Ox O2 Delivery O2 Flow Rate FiO2 06/06/22 21:15 98 Room Air 06/06/22 20:34 36.7 80 18 144/67 (92) Capillary Refill : General Appearance: No Apparent Distress, WD/WN, Anxious, Chronically ill, Thin HEENT: PERRL/EOMI, Normal ENT Inspection, Pharynx Normal Neck: Full Range of Motion, Normal Inspection, Non Tender, Supple, Carotid Bruit Respiratory: Chest Non Tender, Lungs Clear, Normal Breath Sounds, No Accessory Muscle Use, No Respiratory Distress Cardiovascular: Regular Rate, Rhythm, No Edema, No Gallop, No JVD, No Murmur, Normal Peripheral Pulses Gastrointestinal: Normal Bowel Sounds, No Organomegaly, No Pulsatile Mass, Non Tender, Soft Back: Normal Inspection, No CVA Tenderness, No Vertebral Tenderness Extremity: Normal Capillary Refill, Normal Inspection, Normal Range of Motion, Non Tender, No Calf Tenderness, No Pedal Edema Neurologic/Psychiatric: Alert, Oriented x3, Normal Mood/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 FIM Transfers Therapy Code Descriptions/Definitions Functional [place] Measure: 0=Not Assessed/NA 4=Minimal Assistance 1=Total Assistance 5=Supervision or Setup 2=Maximal Assistance 6=Modified [place] 3=Moderate Assistance 7=Complete IndependenceSCALE: Activities may be completed with or without assistive devices. 0-Zmnvcvucei-ajltrto completes the activity by him/herself with no assistance from a helper. 5-Set-up or Clean-up Assistance-helper sets up or cleans up; patient completes activity. [place] assists only prior to or following the activity. 4-Supervision or Touching Assistance-helper provides verbal cues and/or touching/steadying and/or contact guard assistance as patient completes activity. Assistance may be provided throughout the activity or intermittently. 3-Partial/Moderate Assistance-helper does LESS THAN HALF the effort. [place] lifts, holds or supports trunk or limbs, but provides less than half the effort. 2-Substantial/Maximal Assistance-helper does MORE THAN HALF the effort. [place] lifts or holds trunk or limbs and provides more than half the effort. 2-Adswcnwmi-ajnkhq does ALL the effort. Patient does none of the effort to c omplete the activity. Or, the assistance of 2 or more helpers is required for the patient to complete the activity. If activity was not attempted, code reason: 7-Patient Refused. 9-Not Applicable-not attempted and the patient did not perform the activity before the current illness, exacerbation or injury. 10-Not Attempted due to Environmental Limitations-(lack of equipment, weather restraints, etc.). 88-Not Attempted due to Medical Conditions or Safety Concerns. Roll Left to Right (QC): 6 Sit to Lying (QC): 6 Sit to Stand (QC): 4 Chair/Cwp-ut-Idnmy Xfer(QC): 4 Car Transfer (QC): 3 Gait Training Does the Patient Walk?: Yes Distance: 150'x2, 120' Walk 10 feet (QC): 4 Walk 50 ft with 2 Turns(QC): 4 Walk 150 ft (QC): 4 Walking 10ft/uneven surface-QC: 3 Gait Persons Needed: 1 Gait Assistive Device: Walker 4 Wheeled Wheelchair Training Does the Pt Use a Wheelchair?: No Distance: 0 Wheel 50 ft with 2 turns (QC): 9 Wheel 150 ft (QC): 9 Stair Training #of Steps: 12 1 Step (curb) (QC): 3 4 Steps (QC): 3 12 Steps (QC): 3 Balance Picking up an Object (QC): 3 ADL-Treatment Eating (QC): 6 Oral Hygiene (QC): 4 Shower/Bathe Self (QC): 4 Upper Body Dressing (QC): 4 Lower Body Dressing (QC): 4 On/Off Footwear (QC): 4 Toileting Hygiene (QC): 4 Toilet Transfer (QC): 4 Assessment/Plan Assessment and Plan Assess & Plan/Chief Complaint Assessment: Acute ischemic stroke 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
[2022-06-06 07:55] VITALS: BP 130/60
[2022-06-06] MEDS: HYDROcodone/APAP 5 MG/325 MG (LORTAB) TAB PO PRN (07:58)
[2022-06-06] MEDS: eZETimibe 10 MG (ZETIA) TABLET PO SCH (07:59)
[2022-06-06] MEDS: GABAPENTIN 300 MG (NEURONTIN) CAP PO SCH ×3 (07:59→21:21)
[2022-06-06] MEDS: GLIMEPIRIDE 2 MG (AMARYL) TAB PO SCH ×2 (07:59→21:21)
[2022-06-06] MEDS: lisINopril 40 MG (PRINIVIL) TABLET PO SCH (07:59)
[2022-06-06] MEDS: ASPIRIN 81 MG CHEW (CHILDREN'S ASA) PO SCH (07:59)
[2022-06-06] MEDS: VITAMIN D3 25 MCG (1,000 UNITS) TABLET PO SCH (07:59)
[2022-06-06] MEDS: PANTOPRAZOLE 20 MG TABLET (PROTONIX) PO SCH (07:59)
[2022-06-06] MEDS: CLOPIDOGREL 75 MG (PLAVIX) TABLET PO SCH (08:00)
[2022-06-06] MEDS: MAGNESIUM OXIDE (MAG-OX)400 MG TAB PO SCH ×2 (08:00→16:44)
[2022-06-06] MEDS: HYDROCORTISONE 1% CREAM 30 GM TUBE TP SCH ×3 (08:01→21:24)
[2022-06-06] MEDS: FLUTICASONE NASAL SPRAY (FLONASE) 16 GM BTL NS SCH (08:05)
[2022-06-06] MEDS: metFORMIN 500 MG (GLUCOPHAGE) TAB PO SCH ×2 (09:35→16:44)
[2022-06-06] MEDS: DOCUSATE SODIUM 100 MG (COLACE) CAP PO SCH ×2 (09:49→21:20)
[2022-06-06] MEDS: SENNA W/DOCUSATE (SENOKOT S) TABLET PO SCH ×2 (09:50→21:20)
[2022-06-06] MEDS: polyethylene glycoL POWDER 17 GM (MIRALAX) PACK PO SCH ×2 (09:50→21:20)
[2022-06-06] MEDS ORDERED: SIMETHICONE 80 MG (MYLICON) CHEW PO NR (15:00)
[2022-06-06] MEDS: SIMETHICONE 80 MG (MYLICON) CHEW PO SCH ×2 (17:52→21:21)
[2022-06-06 20:34] VITALS: BP 144/67
[2022-06-06] MEDS: PRAMIPEXOLE 0.125 MG (MIRAPEX) TABLET PO SCH (21:20)
[2022-06-06] MEDS: MELATONIN 3 MG TABLET PO PRN (21:21)
[2022-06-07] MEDS: inSUlin ASPART (NovoLOG) 1 UNIT/0.01 ML (CHARGE PER UNIT) SC SCH ×4 (05:40→20:28)
[2022-06-07] MEDS: MULTIVIT W/MINERALS TAB (THERAGRAN M) PO SCH (05:59)
[2022-06-07 06:20] LABS: BASOPHILS % (AUTO) 0 % (0-10); EOSINOPHILS # (AUTO) 0.4 10^3/uL (0.0-0.3); EOSINOPHILS % (AUTO) 6 % (0-10); HEMATOCRIT 32 % (35-52); HEMOGLOBIN 10.4 g/dL (11.5-16.0); LYMPHOCYTES # (AUTO) 1.1 10^3/uL (1.0-4.0); LYMPHOCYTES % (AUTO) 16 % (12-44); MEAN CORPUSCULAR HEMOGLOBIN 27 pg (25-34); MEAN CORPUSCULAR HGB CONC 32 g/dL (32-36); MEAN CORPUSCULAR VOLUME 83 fL (80-99); MEAN PLATELET VOLUME 10.2 fL (9.0-12.2); MONOCYTES # (AUTO) 0.9 10^3/uL (0.0-1.0); MONOCYTES % (AUTO) 13 % (0-12); NEUTROPHILS # (AUTO) 4.3 10^3/uL (1.8-7.8); NEUTROPHILS % (AUTO) 64 % (42-75); PLATELET COUNT 332 10^3/uL (130-400); WHITE BLOOD COUNT 6.7 10^3/uL (4.3-11.0)
--- NOTE | 2022-06-07 06:22 | PM&R Progress Note ---
Subjective HPI/CC On Admission Date Seen by Provider: Jun 07, 2022 Time Seen by Provider: 08:30 Subjective/Events-last exam 06/07/2022: Patient doing well No major issues Blood sugars reviewed No falls No pain 06/06/2022: Doing well Improved sugars No pain reported Weakness noted 06/05/2022: Doing well Settling in well No expressive aphasia noted Overall weak BM+ Increased sugar so will start home dose of Glimepride Review of Systems General: Fatigue, Malaise Objective Exam Vital Signs Vital Signs Date Time Temp Pulse Resp B/P (MAP) Pulse Ox O2 Delivery O2 Flow Rate FiO2 06/07/22 20:30 36.7 80 18 110/63 (79) 96 Room Air Capillary Refill : General Appearance: No Apparent Distress, WD/WN, Anxious, Chronically ill, Thin HEENT: PERRL/EOMI, Normal ENT Inspection, Pharynx Normal Neck: Full Range of Motion, Normal Inspection, Non Tender, Supple, Carotid Bruit Respiratory: Chest Non Tender, Lungs Clear, Normal Breath Sounds, No Accessory Muscle Use, No Respiratory Distress Cardiovascular: Regular Rate, Rhythm, No Edema, No Gallop, No JVD, No Murmur, Normal Peripheral Pulses Gastrointestinal: Normal Bowel Sounds, No Organomegaly, No Pulsatile Mass, Non Tender, Soft Back: Normal Inspection, No CVA Tenderness, No Vertebral Tenderness Extremity: Normal Capillary Refill, Normal Inspection, Normal Range of Motion, Non Tender, No Calf Tenderness, No Pedal Edema Neurologic/Psychiatric: Alert, Oriented x3, Normal 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 FIM Transfers Therapy Code Descriptions/Definitions Functional [place] Measure: 0=Not Assessed/NA 4=Minimal Assistance 1=Total Assistance 5=Supervision or Setup 2=Maximal Assistance 6=Modified [place] 3=Moderate Assistance 7=Complete IndependenceSCALE: Activities may be completed with or without assistive devices. 2-Agarorvjeo-ysvbfxt completes the activity by him/herself with no assistance from a helper. 5-Set-up or Clean-up Assistance-helper sets up or cleans up; patient completes activity. [place] assists only prior to or following the activity. 4-Supervision or Touching Assistance-helper provides verbal cues and/or touchi ng/steadying and/or contact guard assistance as patient completes activity. Assistance may be provided throughout the activity or intermittently. 3-Partial/Moderate Assistance-helper does LESS THAN HALF the effort. [place] lifts, holds or supports trunk or limbs, but provides less than half the effort. 2-Substantial/Maximal Assistance-helper does MORE THAN HALF the effort. [place] lifts or holds trunk or limbs and provides more than half the effort. 1-Jdocozycl-wjftjo does ALL the effort. Patient does none of the effort to complete the activity. Or, the assistance of 2 or more helpers is required for the patient to complete the activity. If activity was not attempted, code reason: 7-Patient Refused. 9-Not Applicable-not attempted and the patient did not perform the activity befo re the current illness, exacerbation or injury. 10-Not Attempted due to Environmental Limitations-(lack of equipment, weather restraints, etc.). 88-Not Attempted due to Medical Conditions or Safety Concerns. Roll Left to Right (QC): 6 Sit to Lying (QC): 6 Sit to Stand (QC): 4 Chair/Ewi-zm-Rlqkc Xfer(QC): 4 Car Transfer (QC): 3 Gait Training Does the Patient Walk?: Yes Distance: 150'x2, 120' Walk 10 feet (QC): 4 Walk 50 ft with 2 Turns(QC): 4 Walk 150 ft (QC): 4 Walking 10ft/uneven surface-QC: 3 Gait Persons Needed: 1 Gait Assistive Device: Walker 4 Wheeled Wheelchair Training Does the Pt Use a Wheelchair?: No Distance: 0 Wheel 50 ft with 2 turns (QC): 9 Wheel 150 ft (QC): 9 Stair Training #of Steps: 12 1 Step (curb) (QC): 3 4 Steps (QC): 3 12 Steps (QC): 3 Balance Picking up an Object (QC): 3 ADL-Treatment Eating (QC): 6 Oral Hygiene (QC): 4 Shower/Bathe Self (QC): 4 Upper Body Dressing (QC): 4 Lower Body Dressing (QC): 4 On/Off Footwear (QC): 4 Toileting Hygiene (QC): 4 Toilet Transfer (QC): 4 Assessment/Plan Assessment and Plan Assess & Plan/Chief Complaint Assessment: Acute ischemic stroke 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 Pacemaker Diabetes Recent type II NSTEMI Hypertension Hyperlipidemia Neuropathy GERD Chronic coccygeal pain Anxiety Elevated liver enzymes will hold statin and Zetia on 06/08/2022 Plan: Home meds Blood sugar checks Supportive care Aggressive rehab 06/05/2022: Restart [facility] 06/06/2022: Monitor sugars 06/07/2022: Supportive care Continue monitoring blood sugars Hold statin and Zetia (1) Acute ischemic stroke (2) TIA (transient ischemic attack) (3) Expressive aphasia (4) NSTEMI (non-ST elevated myocardial infarction) (5) Pacemaker (6) Hypertension (7) Amputation of toe of right foot (8) Uncontrolled diabetes mellitus Status: Acute RAJESH LATIF DO Jun 07, 2022 06:22
[2022-06-07 06:37] LABS: BILIRUBIN,TOTAL 0.3 MG/DL (0.1-1.0); CREATININE SERUM 0.7 MG/DL (0.60-1.30); POTASSIUM 4.1 MMOL/L (3.6-5.0); TOTAL PROTEIN 6.1 GM/DL (6.4-8.2)
[2022-06-07 07:39] VITALS: BP 116/73
[2022-06-07] MEDS: SIMETHICONE 80 MG (MYLICON) CHEW PO SCH ×4 (08:02→20:25)
[2022-06-07] MEDS: GLIMEPIRIDE 2 MG (AMARYL) TAB PO SCH ×2 (08:02→20:22)
[2022-06-07] MEDS: lisINopril 40 MG (PRINIVIL) TABLET PO SCH (08:02)
[2022-06-07] MEDS: VITAMIN D3 25 MCG (1,000 UNITS) TABLET PO SCH (08:02)
[2022-06-07] MEDS: ASPIRIN 81 MG CHEW (CHILDREN'S ASA) PO SCH (08:02)
[2022-06-07] MEDS: MAGNESIUM OXIDE (MAG-OX)400 MG TAB PO SCH ×2 (08:02→17:28)
[2022-06-07] MEDS: PANTOPRAZOLE 20 MG TABLET (PROTONIX) PO SCH (08:02)
[2022-06-07] MEDS: CLOPIDOGREL 75 MG (PLAVIX) TABLET PO SCH (08:02)
[2022-06-07] MEDS: eZETimibe 10 MG (ZETIA) TABLET PO SCH (08:02)
[2022-06-07] MEDS: GABAPENTIN 300 MG (NEURONTIN) CAP PO SCH ×3 (08:03→20:25)
[2022-06-07] MEDS: FLUTICASONE NASAL SPRAY (FLONASE) 16 GM BTL NS SCH (08:03)
[2022-06-07] MEDS: HYDROCORTISONE 1% CREAM 30 GM TUBE TP SCH ×3 (08:03→20:29)
[2022-06-07] MEDS: metFORMIN 500 MG (GLUCOPHAGE) TAB PO SCH ×2 (08:03→17:28)
[2022-06-07] MEDS: DOCUSATE SODIUM 100 MG (COLACE) CAP PO SCH ×2 (08:03→20:29)
[2022-06-07] MEDS: SENNA W/DOCUSATE (SENOKOT S) TABLET PO SCH ×2 (08:04→20:28)
[2022-06-07] MEDS: polyethylene glycoL POWDER 17 GM (MIRALAX) PACK PO SCH ×2 (08:04→20:29)
--- NOTE | 2022-06-07 08:58 | ST Cognitive Linguistic Eval ---
Speech Evaluation-General Medical Diagnosis CVA Onset Date: Jun 03, 2022 Therapy Diagnosis Therapy Diagnosis: Minimal Anomia Precautions Precautions: Fall Precautions/Isolations: Fall Prevention, Standard Precautions Referral Referring Physician: Dr. Lopez Reason for Referral: Evaluation/Treatment Medical History Pertinent Medical History: DM, GERD, HTN, Neuropathy Current History The patient is an 82 year-old female with a past medical history of DM, GERD, HTN, and neuropathy, who was admitted to the acute rehabilitation unit with a diagnosis of expressive aphasia. Reviewed History: Yes Social History Current Living Status: Spouse Speech PLF-Current Status Prior Level of Function The patient stated she is having a difficult time "pulling up some words." Per patient, "I even had trouble before this, I told my friends I am just getting old." The patient denied additional speech, language, or cognitive concerns. Subjective The patient was seated upright in her recliner, awake and alert, upon entrance to the patient's room by the clinician. The patient greeted the clinician appropriately and was agreeable to participation in the cognitive linguistic e valuation. Language Eval: Auditory Comprehends Simple Yes/No Ques: Functional Indent/Objects Multiple [place]: Functional Follows 1-Step Commands: Functional Follows General Conversations: Functional Language Eval: Verbal Language Completes Spontaneous Greeting: Functional Produces Auto, Serial Info: Functional Imitates Simple Words/Phrases: Functional Word Finding: Mild Requests Basic Needs: Functional States Basic Personal Info: Functional Expresses Complex Ideas: Functional Language Evaluation: Reading Follows Simple Written Direct: Functional Language Evaluation: Writing Writes to Simple Dictation: Functional Cognitive Patient Orientation The patient was independently oriented to self, location, month, day of the week, date, and year. Objective Cognitive Domain Attention: WNL Memory: Mild Problem Solving: Mild Executive Functions: Mild Visuospatial Skills: WNL Composite Severity Rating: Mild Clock Drawing Severity Rating: Mild Objective Formal/Standardized Tests [facility] Mental Status Exam (UMS) Results The patient demonstrated a result of +20/30 on the SLUMS correlating with a result of "dementia." Oral Motor/Speech Production The patient does not display dysarthria or apraxia of speech. The patient is 100% intelligible in known and unknown contexts. Impression The patient presents with mild anomia and memory deficits. Skilled speech pathology will provide services to provide the patient with word-finding and functional memory strategies. The patient received a phone call from her throughout the assessment. The patient did not demonstrate anomia throughout spontaneous speech on the telephone or with the clinician throughout the evaluation. Speech Short Term Goals Short Term Goals Short Term Goals 1. The patient will display 80% accuracy with structured word-finding exercises, independently. 2. The patient will demonstrate word-finding strategies with 80% accuracy, independently. Speech Prison Goals Packaging Sales Goals 1. The patient will demonstrate improved word-finding abilities for safe discharge to the least restrictive environment. Time Frame: One Week. Speech-Plan Treatment Plan Speech Therapy Treatment Plan: Continue Plan of Care Treatment Duration: Jun 04, 2022 Frequency: Modified Program (IRF) Estimated Hrs Per Day: .5 hour per day Rehab Potential: Good Safety Risks/Education Teaching Recipient: Patient Teaching Methods: Discussion Response to Teaching: Verbalize Understanding Education Topics Provided: Results, Recommendations, Plan of Care Time Speech Therapy Time In: 10:30 Speech Therapy Time Out: 11:00 DATE: Jun 07, 2022 Total Billed Time: 30 Billed Treatment Time 1, NITIN MAYBERRY ELIZABETH ST Jun 07, 2022 08:58
--- NOTE | 2022-06-07 09:50 | Physical Therapy Progress Note ---
Therapy Progress Note Contacted Dr. Red, IRWIN's office regarding patients weight bearing status and recommended footwear. Patient currently is full weight bearing and does not have to wear any specific surgical or unloading shoe. She can wear whatever shoes are comfortable. Nurse and therapy staff notified. ROYA HARDY PT Jun 07, 2022 09:50
--- NOTE | 2022-06-07 10:25 | Occupational Ther Daily Note ---
OT Current Status-Daily Note Subjective Pt sitting in recliner, agrees to therapy. C/o no pain. Mental Status/Objective Patient Orientation: Person, Place, Time, Situation ADL-Treatment Pt declines shower. Pt reports she completed oral hygiene prior to tx. Pt required assist to don shoes. Therapy Code Descriptions/Definitions Functional [place] Measure: 0=Not Assessed/NA 4=Minimal Assistance 1=Total Assistance 5=Supervision or Setup 2=Maximal Assistance 6=Modified [place] 3=Moderate Assistance 7=Complete IndependenceSCALE: Activities may be completed with or without assistive devices. 2-Tefwrwsatu-zerxdzp completes the activity by him/herself with no assistance from a helper. 5-Set-up or Clean-up Assistance-helper sets up or cleans up; patient completes activity. Jasper assists only prior to or following the activity. 4-Supervision or Touching Assistance-helper provides verbal cues and/or touching/steadying and/or contact guard assistance as patient completes activity. Assistance may be provided throughout the activity or intermittently. 3-Partial/Moderate Assistance-helper does LESS THAN HALF the effort. Jasper lifts, holds or supports trunk or limbs, but provides less than half the effort. 2-Substantial/Maximal Assistance-helper does MORE THAN HALF the effort. Jasper lifts or holds trunk or limbs and provides more than half the effort. 5-Hdjpmwdjt-jsvipf does ALL the effort. Patient does none of the effort to complete the activity. Or, the assistance of 2 or more helpers is required for the patient to complete the activity. If activity was not attempted, code reason: 7-Patient Refused. 9-Not Applicable-not attempted and the patient did not perform the activity before the current illness, exacerbation or injury. 10-Not Attempted due to Environmental Limitations-(lack of equipment, weather restraints, etc.). 88-Not Attempted due to Medical Conditions or Safety Concerns. per nursing, order to wear surgical shoe terminated by physician. Pt wore orthopedic tennis shoes during treatment. Other Treatment Pt ambulated with FWW to therapy gym, SBA. Pt completed UE activities with resistance while standing with 1 lb weights on each arm to improve dynamic standing balance, FM skills, cognitive skills, VM skills UE strength and endurance. Pt demonstrated good dynamic standing balance. Pt was SBA for standing during table top activities. Pt completed two, 5 minute cycles on the arm bike, rotating forward and backwards with no resistance to improve UE strength and endurance. Skilled demonstration provided from proper technique and positioning. Pt ambulated back to room with FWW, SBA to recliner. Pt in recliner post tx. Phone/call light in reach. All needs met in room. OT Short Term Goals Short Term Goals Time Frame: Jun 10, 2022 Eatin Oral hygiene: 5 Toileting hygiene: 5 Shower/bathe self: 5 Upper body dressin Lower body dressin Putting on/taking off footwear: 5 OT Adjunct Physical Education Instructor Goals Adjunct Physical Education Instructor Goals Time Frame: Jun 16, 2022 Acute change in mental status: 0 Inattention: 0 Disorganized thinkin Altered level of consciousness: 0 Eating (QC): 6 Oral Hygiene (QC): 6 Toileting Hygiene (QC): 6 Shower/Bathe Self (QC): 6 Upper Body Dressing (QC): 6 Lower Body Dressing (QC): 6 On/Off Footwear (QC): 6 Additional Goals: 1-Demonstrate ADL Tasks, 2-Verbalize Understanding, 3-ImproveStrength/Segun 1=Demonstrate adherence to instructed precautions during ADL tasks. 2=Patient will verbalize/demonstrate understanding of assistive devices/modifications for ADL. 3=Patient will improve strength/tolerance for activity to enable patient to perform ADL's. OT Education/Plan Problem List/Assessment Assessment: Decreased Activ Tolerance, Decreased Safety Aware, Impaired Cognition, Impaired Funct Balance, Impaired Self-Care Skills Discharge Recommendations Plan/Recommendations: Continue POC Treatment Plan/Plan of Care Patient would benefit from OT for education, treatment and training to promote independence in ADL's, mobility, safety and/or upper extremity function for ADL's. Plan of Care: ADL Retraining, Functional Mobility, Group Exercise/Act as Ind, Orthotic Fitting/Training, UE Funct Exercise/Act, UE Neuromus Re-Ed/Coord Treatment Duration: Jun 16, 2022 Frequency: At least 5 of 7 days/Wk (IRF) Estimated Hrs Per Day: 1.5 hours per day (75-90 min/day ) Agreement: Yes Rehab Potential: Good Time Start Time: 09:30 Stop Time: 10:15 DATE: Jun 07, 2022 Total Time Billed (hr/min): 75 Billed Treatment Time 1 visit EX 5 (75 min) VIVIANA IBARRA 21, 2022 10:25
--- NOTE | 2022-06-07 10:44 | Physical Therapy Daily Note ---
PT Daily Note-Current Subjective Pt sitting in recliner upon arrival. Pt agrees to PT. Pt reports feeling a little less foggy, more like herself today. Pain Location: No Pain Reported Section J - Health Conditions 1. Rarely or not at all 2. Occasionally 3. Frequently 4. Almost constantly 8. Unable to answer Pain Effect on Sleep: 1 Pain Interference with Therapy: 1 Pain Interference w/Day-to-Day: 1 Mental Status Patient Orientation: Person, Place, Time, Situation Transfers SCALE: Activities may be completed with or without assistive devices. 8-Izjnmvtcml-kqmoudb completes the activity by him/herself with no assistance from a helper. 5-Set-up or Clean-up Assistance-helper sets up or cleans up; patient completes activity. Etta assists only prior to or following the activity. 4-Supervision or Touching Assistance-helper provides verbal cues and/or touching/steadying and/or contact guard assistance as patient completes activity. Assistance may be provided throughout the activity or intermittently. 3-Partial/Moderate Assistance-helper does LESS THAN HALF the effort. Etta lifts, holds or supports trunk or limbs, but provides less than half the effort. 2-Substantial/Maximal Assistance-helper does MORE THAN HALF the effort. Etta lifts or holds trunk or limbs and provides more than half the effort. 8-Yvvpkowgy-jqluhc does ALL the effort. Patient does none of the effort to complete the activity. Or, the assistance of 2 or more helpers is required for the patient to complete the activity. If activity was not attempted, code reason: 7-Patient Refused. 9-Not Applicable-not attempted and the patient did not perform the activity before the current illness, exacerbation or injury. 10-Not Attempted due to Environmental Limitations-(lack of equipment, weather restraints, etc.). 88-Not Attempted due to Medical Conditions or Safety Concerns. Sit to Stand (QC): 4 Toilet Transfer (QC): 4 Weight Bearing Right Lower Extremity: Right Partial Weight Bearing Heel Weight bearing only. Patient has a orthopedic shoe to decrease forefoot wt. Bearing, however stepson reports it is at home. Gait Training Does the Patient Walk?: Yes Distance: 150', 200' Walk 10 feet (QC): 5 Walk 50 ft with 2 Turns(QC): 5 Walk 150 ft (QC): 4 Gait Persons Needed: 1 Gait Assistive Device: Walker 4 Wheeled Corporate Specialist has okayed pt to wear everyday shoes instead of orthopedic shoe that family brought up if she wants. Wheelchair Training Does the Pt Use a Wheelchair?: No Exercises Seated Therapy Exercises: Ankle pumps, Long arc quads, Hip flexion, Hip abd/add, Glut set Seated Reps: 20 Treatments 800-900: REPRODUCTIVE SURGEON issues & reviews written HEP for Supine & Seated EX, RB as needed. Pt amb. to RB and changes brief. Pt amb in hallway before returning to room to rest in recliner at end of tx. All needs met, call light in hand. [id number]: Pt's family(SP, daughter & MARISELA) are present and wanted to discuss pt's progress and limitations seen. Pt wants to have SP move into [facility] due to pt not being able to care for Sp sergio. right now. Pt will likely join Sp after d/c from this ARU. Pt is resting with family present, all needs met, call light in hand. Assessment Current Status: Good Progress Pt is slightly repulsive w/initial stand from recliner and VC at times for safety w/ambulation. PT [facility] Goals Health Communications Specialist Goals PT Health Communications Specialist Goals Time Frame: Jun 19, 2022 Roll Left & Right (QC): 6 Sit to Lying (QC): 6 Lying-Sitting on Side/Bed(QC): 6 Sit to Stand (QC): 6 Chair/Nsh-he-Itldg Xfer(QC): 6 Toilet Transfer (QC): 6 Car Transfer (QC): 6 Does the Patient Walk: Yes Walk 10 feet (QC): 6 Walk 50ft with 2 Turns (QC): 6 Walk 150 ft (QC): 6 Walking 10ft on Uneven Surface: 6 1 Step (curb) (QC): 6 4 Steps (QC): 4 12 Steps (QC): 4 Picking up an Object (QC): 6 Does the Pt use WC or Scooter?: No Wheel 50 feet with 2 turns (QC: 9 Wheel 150 feet: 9 PT Plan Problem List Problem List: Activity Tolerance, Safety Treatment/Plan Treatment Plan: Continue Plan of Care Treatment Plan: Bed Mobility, Education, Functional Activity Segun, Functional Strength, Group Therapy, Gait, Safety, Therapeutic Exercise, Transfers Treatment Duration: Jul 17, 2022 Frequency: At least 5 of 7 days/Wk (IRF) Estimated Hrs Per Day: 1.5 hours per day Patient and/or Family Agrees t: Yes Safety Risks/Education Patient Education: Gait Training, Transfer Techniques, Correct Positioning, Safety Issues Teaching Recipient: Patient Teaching Methods: Discussion Response to Teaching: Verbalize Understanding Time Time In: 800 (1410) Time Out: 900 (1430) DATE: Jun 07, 2022 Total Billed Treatment Time: 80 Total Billed Treatment 800-900: 1, GT (20m), FA (15m) & EX x2 (25m) [id number]: 1, FA (20m) IRAJ ESCUDERO REPRODUCTIVE SURGEON Jun 07, 2022 10:44
--- NOTE | 2022-06-07 10:52 | Progress Note ---
ZANDER RICHTER 06/07/22 1052: Progress Note S: Tona Claire is an 82 yo female who was admitted to inpatient rehab for expressive aphasia beginning on 06/01. The patient at the time had complaints of confusion and word-finding difficulty, corroborated by her daughter's history. She was seen in the ED with unremarkable noncontrast head CT, but she was transferred to [facility] in [place] for elevated d-dimer with no PE on CTA. Echo performed on 06/03 showed mitral stenosis, pulmonary HTN, atrial enlargement, aortic sclerosis and diastolic dysfunction. She returned here on 06/04 with diagnosis of TIA for continued monitoring of neurological symptoms. The states she was able to perform ADLs at home prior to recent events. The patient today reports feeling improved. She states she is able to speak better overall, though occasionally has word-finding difficulty. She indicates she still feels unsteady walking and that her "feet don't want to walk," but remarks she is able to ambulate around the inpatient rehab area with assistance from a walker; she admits to requiring a walker/cane at home to ambulate. She no wendy her right leg is chronically weaker than her left since she had a lymphectomy of her right leg performed years ago. O: VS stable: Temp 36.3 F, HR 82, RR 18, BP 116/73, SpO2 99% RA PE: -Constitutional: Elderly white female seated comfortably in recliner. The patient does not appear to be in distress. Calm and Cooperative. -Cardiovascular: RRR, no murmurs -Pulmonary: LCTAB, no wheezes, crackles, rhonchi, rales -Peripheral Pulses: 2+ radial bilaterally -Neurological: Patient able to speak in full sentences without slurring of words, only one instance of word-finding difficulty through the encounter. Bilateral leg sensation to light touch is intact. 5/5 strength to the left leg. 4/5 strength to the right leg with hip flexion, knee flexion/extension. 5/5 strength to right ankle flexion. Labs: HGB 10.4, HCT 33, RDW 15.1 A/P: TIA with expressive aphasia and debility: Continue monitoring symptoms, repeat imaging may be indicated with acute worsening. OT/PT as required. AMS: Continue monitoring. HTN: BPs largely stable here with slight elevation. Continue administration of home meds. Continue monitoring. HLD, DM2, Neuropathy, GERD, Anxiety, Chronic coccygeal pain: Continue administration of home meds. Blood sugars continue to be elevated though stable at this time; continue monitoring. Stroke prophylaxis: Plavix and ASA initiated. Difficulty ambulating: Continue monitoring for acute worsening, or for new-onset weakness. AMI LATIF DO 06/08/22 0515: Supervisory-Addendum Brief Verification & Attestation Participated in pt care: history, MDM, physical Personally performed: exam, history, MDM, supervision of care Care discussed with: Medical Student Procedures: n/a Results interpretation: Verified all documentation Verification and Attestation of Medical Student E/M Service A medical student performed and documented this service in my presence. I reviewed and verified all information documented by the medical student and made modifications to such information, when appropriate. I personally performed the physical exam and medical decision making. Ami Latif, Jun 08, 2022,05:15 ZANDER RICHTER Jun 07, 2022 10:52 AMI LATIF DO Jun 08, 2022 05:15
[2022-06-07] MEDS: PRAMIPEXOLE 0.125 MG (MIRAPEX) TABLET PO SCH (20:24)
[2022-06-07 20:30] VITALS: BP 110/63
[2022-06-08] MEDS: inSUlin ASPART (NovoLOG) 1 UNIT/0.01 ML (CHARGE PER UNIT) SC SCH ×4 (05:31→21:11)
--- NOTE | 2022-06-08 06:31 | PM&R Progress Note ---
Subjective HPI/CC On Admission Date Seen by Provider: Jun 08, 2022 Time Seen by Provider: 08:30 Subjective/Events-last exam 06/08/2022: No major issues Incontinence noted and will start bladder training AL at DC for patient and her 06/07/2022: Patient doing well No major issues Blood sugars reviewed No falls No pain 06/06/2022: Doing well Improved sugars No pain reported Weakness noted 06/05/2022: Doing well Settling in well No expressive aphasia noted Overall weak BM+ Increased sugar so will start home dose of Glimepride Review of Systems General: Fatigue, Malaise Objective Exam Vital Signs Vital Signs Date Time Temp Pulse Resp B/P (MAP) Pulse Ox O2 Delivery O2 Flow Rate FiO2 06/08/22 21:00 Room Air 06/08/22 20:37 36.1 72 16 123/66 (85) 98 Capillary Refill : General Appearance: No Apparent Distress, WD/WN, Anxious, Chronically ill, Thin HEENT: PERRL/EOMI, Normal ENT Inspection, Pharynx Normal Neck: Full Range of Motion, Normal Inspection, Non Tender, Supple, Carotid Bruit Respiratory: Chest Non Tender, Lungs Clear, Normal Breath Sounds, No Accessory Muscle Use, No Respiratory Distress Cardiovascular: Regular Rate, Rhythm, No Edema, No Gallop, No JVD, No Murmur, Normal Peripheral Pulses Gastrointestinal: Normal Bowel Sounds, No Organomegaly, No Pulsatile Mass, Non Tender, Soft Back: Normal Inspection, No CVA Tenderness, No Vertebral Tenderness Extremity: Normal Capillary Refill, Normal Inspection, Normal Range of Motion, Non Tender, No Calf Tenderness, No Pedal Edema Neurologic/Psychiatric: Alert, Oriented x3, Normal Mood/Affect, band tumbler II-XII Norm as Tested, Abnormal Gait, Motor Weakness (Generalized) Skin: Normal Color, Warm/Dry Lymphatic: No Adenopathy Results/Procedures Lab Patient resulted labs reviewed. FIM Transfers Therapy Code Descriptions/Definitions Functional [place] Measure: 0=Not Assessed/NA 4=Minimal Assistance 1=Total Assistance 5=Supervision or Setup 2=Maximal Assistance 6=Modified [place] 3=Moderate Assistance 7=Complete IndependenceSCALE: Activities may be completed with or without assistive devices. 1-Cemhunvjql-bfoiovs completes the activity by him/herself with no assistance from a helper. 5-Set-up or Clean-up Assistance-helper sets up or cleans up; patient completes activity. Magee assists only prior to or following the activity. 4-Supervision or Touching Assistance-helper provides verbal cues and/or touching/steadying and/or contact guard assistance as patient completes activit y. Assistance may be provided throughout the activity or intermittently. 3-Partial/Moderate Assistance-helper does LESS THAN HALF the effort. Magee lifts, holds or supports trunk or limbs, but provides less than half the effort. 2-Substantial/Maximal Assistance-helper does MORE THAN HALF the effort. Magee lifts or holds trunk or limbs and provides more than half the effort. 5-Kndfgjkto-vbfitu does ALL the effort. Patient does none of the effort to complete the activity. Or, the assistance of 2 or more helpers is required for the patient to complete the activity. If activity was not attempted, code reason: 7-Patient Refused. 9-Not Applicable-not attempted and the patient did not perform the activity before the current illness, exacerbation or injury. 10-Not Attempted due to Environmental Limitations-(lack of equipment, weather restraints, etc.). 88-Not Attempted due to Medical Conditions or Safety Concerns. Roll Left to Right (QC): 6 Sit to Lying (QC): 6 Sit to Stand (QC): 4 Chair/Fjw-dz-Rkgns Xfer(QC): 4 Car Transfer (QC): 3 Gait Training Does the Patient Walk?: Yes Distance: 150', 200' Walk 10 feet (QC): 5 Walk 50 ft with 2 Turns(QC): 5 Walk 150 ft (QC): 4 Walking 10ft/uneven surface-QC: 3 Gait Persons Needed: 1 Gait Assistive Device: Walker 4 Wheeled Wheelchair Training Does the Pt Use a Wheelchair?: No Distance: 0 Wheel 50 ft with 2 turns (QC): 9 Wheel 150 ft (QC): 9 Stair Training #of Steps: 12 1 Step (curb) (QC): 3 4 Steps (QC): 3 12 Steps (QC): 3 Balance Picking up an Object (QC): 3 ADL-Treatment Eating (QC): 6 Oral Hygiene (QC): 4 Shower/Bathe Self (QC): 4 Upper Body Dressing (QC): 4 Lower Body Dressing (QC): 4 On/Off Footwear (QC): 4 Toileting Hygiene (QC): 4 Toilet Transfer (QC): 4 Assessment/Plan Assessment and Plan Assess & Plan/Chief Complaint Assessment: Acute ischemic stroke 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 Pacemaker Diabetes Recent type II NSTEMI Hypertension Hyperlipidemia Neuropathy GERD Chronic coccygeal pain Anxiety Elevated liver enzymes will hold statin and Zetia on 06/08/2022 Plan: Home meds Blood sugar checks Supportive care Aggressive rehab 06/05/2022: Restart OHA 06/06/2022: Monitor sugars 06/07/2022: Supportive care Continue monitoring blood sugars Hold statin and Zetia 06/08/2022: Supportive care (1) Acute ischemic stroke (2) TIA (transient ischemic attack) (3) Expressive aphasia (4) NSTEMI (non-ST elevated myocardial infarction) (5) Pacemaker (6) Hypertension (7) Amputation of toe of right foot (8) Uncontrolled diabetes mellitus Status: Acute RAJESH LATIF DO Jun 08, 2022 06:31
[2022-06-08] MEDS: MULTIVIT W/MINERALS TAB (THERAGRAN M) PO SCH (06:43)
[2022-06-08 07:40] VITALS: BP 145/73
--- NOTE | 2022-06-08 09:08 | Physical Therapy Daily Note ---
PT Daily Note-Current Subjective Pt sitting in recliner upon arrival. Pt agrees to PT. Pain Numeric Pain Scale: 4 Location Body Site: Shoulder Pain Description: Ache Comment: Pt reports discomfort in UE w/walking. 4WW will be adjusted for height. Section J - Health Conditions 1. Rarely or not at all 2. Occasionally 3. Frequently 4. Almost constantly 8. Unable to answer Pain Effect on Sleep: 1 Pain Interference with Therapy: 1 Pain Interference w/Day-to-Day: 1 Mental Status Patient Orientation: Person, Place Transfers SCALE: Activities may be completed with or without assistive devices. 8-Zuqvzuactk-zpfkppo completes the activity by him/herself with no assistance from a helper. 5-Set-up or Clean-up Assistance-helper sets up or cleans up; patient completes activity. [place] assists only prior to or following the activity. 4-Supervision or Touching Assistance-helper provides verbal cues and/or touching/steadying and/or contact guard assistance as patient completes activit y. Assistance may be provided throughout the activity or intermittently. 3-Partial/Moderate Assistance-helper does LESS THAN HALF the effort. [place] lifts, holds or supports trunk or limbs, but provides less than half the effort. 2-Substantial/Maximal Assistance-helper does MORE THAN HALF the effort. [place] lifts or holds trunk or limbs and provides more than half the effort. 5-Tlabkijhz-gmjmze does ALL the effort. Patient does none of the effort to complete the activity. Or, the assistance of 2 or more helpers is required for the patient to complete the activity. If activity was not attempted, code reason: 7-Patient Refused. 9-Not Applicable-not attempted and the patient did not perform the activity before the current illness, exacerbation or injury. 10-Not Attempted due to Environmental Limitations-(lack of equipment, weather restraints, etc.). 88-Not Attempted due to Medical Conditions or Safety Concerns. Sit to Stand (QC): 4 Toilet Transfer (QC): 4 Weight Bearing Right Lower Extremity: Right Partial Weight Bearing Heel Weight bearing only. Patient has a orthopedic shoe to decrease forefoot wt. Bearing, however stepson reports it is at home. Gait Training Does the Patient Walk?: Yes Distance: 500' Walk 10 feet (QC): 5 Walk 50 ft with 2 Turns(QC): 5 Walk 150 ft (QC): 5 Gait Assistive Device: Walker 4 Wheeled Exercises Seated Therapy Exercises: Ankle pumps, Long arc quads, Hip flexion, Hip abd/add, Glut set Seated Reps: 15 Treatments 800-900: TF to standing and amb. to BR. After toileting, pt amb. in hallway. STATION MECHANIC adjusts 4WW lowering for proper height. Pt completes Seated EX before amb. in hallway then returns to room to rest in recliner. All needs met,call light in hand. [id number]: Pt is issued and reviews Supine & Seated Ex to improve strength for improving balance with upright activity. Pt returns to recliner at end of tx to rest. All needs met, call light in hand. Assessment Current Status: Good Progress VC for standing up tall and remaining close to 4WW for safety. Pt is retropulsive and needs VC to stands tall. Bladder schedule discussed and attempting at this time as pt is incontinent. PT Skilled Nursing Goals Sanitation Worker Hosing Machinery Goals PT Sanitation Worker Hosing Machinery Goals Time Frame: Jun 19, 2022 Roll Left & Right (QC): 6 Sit to Lying (QC): 6 Lying-Sitting on Side/Bed(QC): 6 Sit to Stand (QC): 6 Chair/Yjw-fj-Gsvtc Xfer(QC): 6 Toilet Transfer (QC): 6 Car Transfer (QC): 6 Does the Patient Walk: Yes Walk 10 feet (QC): 6 Walk 50ft with 2 Turns (QC): 6 Walk 150 ft (QC): 6 Walking 10ft on Uneven Surface: 6 1 Step (curb) (QC): 6 4 Steps (QC): 4 12 Steps (QC): 4 Picking up an Object (QC): 6 Does the Pt use WC or Scooter?: No Wheel 50 feet with 2 turns (QC: 9 Wheel 150 feet: 9 PT Plan Problem List Problem List: Activity Tolerance, Safety, Balance Treatment/Plan Treatment Plan: Continue Plan of Care Treatment Plan: Bed Mobility, Education, Functional Activity Segun, Functional Strength, Group Therapy, Gait, Safety, Therapeutic Exercise, Transfers Treatment Duration: Jul 17, 2022 Frequency: At least 5 of 7 days/Wk (IRF) Estimated Hrs Per Day: 1.5 hours per day Patient and/or Family Agrees t: Yes Safety Risks/Education Patient Education: Gait Training, Correct Positioning, Safety Issues Teaching Recipient: Patient Teaching Methods: Discussion Response to Teaching: Verbalize Understanding Time Time In: 800 (1300) Time Out: 900 (1315) DATE: Jun 08, 2022 Total Billed Treatment Time: 75 Total Billed Treatment 800-900: 1, GT x2 (30m), FA (10m) & EX (20m) 2202-5010: 1, EX (15m) IRAJ ESCUDERO STATION MECHANIC Jun 08, 2022 09:08
[2022-06-08] MEDS: ASPIRIN 81 MG CHEW (CHILDREN'S ASA) PO SCH (09:43)
[2022-06-08] MEDS: VITAMIN D3 25 MCG (1,000 UNITS) TABLET PO SCH (09:43)
[2022-06-08] MEDS: SIMETHICONE 80 MG (MYLICON) CHEW PO SCH ×4 (09:43→21:11)
[2022-06-08] MEDS: GABAPENTIN 300 MG (NEURONTIN) CAP PO SCH ×3 (09:43→21:08)
[2022-06-08] MEDS: GLIMEPIRIDE 2 MG (AMARYL) TAB PO SCH ×2 (09:43→21:07)
[2022-06-08] MEDS: PANTOPRAZOLE 20 MG TABLET (PROTONIX) PO SCH (09:43)
[2022-06-08] MEDS: MAGNESIUM OXIDE (MAG-OX)400 MG TAB PO SCH ×2 (09:43→17:16)
[2022-06-08] MEDS: metFORMIN 500 MG (GLUCOPHAGE) TAB PO SCH ×2 (09:44→17:16)
[2022-06-08] MEDS: HYDROCORTISONE 1% CREAM 30 GM TUBE TP SCH ×3 (09:46→21:11)
[2022-06-08] MEDS: FLUTICASONE NASAL SPRAY (FLONASE) 16 GM BTL NS SCH (09:46)
[2022-06-08] MEDS: SENNA W/DOCUSATE (SENOKOT S) TABLET PO SCH ×2 (09:54→21:12)
[2022-06-08] MEDS: DOCUSATE SODIUM 100 MG (COLACE) CAP PO SCH ×2 (09:54→21:08)
[2022-06-08] MEDS: CLOPIDOGREL 75 MG (PLAVIX) TABLET PO SCH (09:54)
[2022-06-08] MEDS: lisINopril 40 MG (PRINIVIL) TABLET PO SCH (10:06)
[2022-06-08] MEDS: polyethylene glycoL POWDER 17 GM (MIRALAX) PACK PO SCH ×2 (10:06→21:12)
--- NOTE | 2022-06-08 11:10 | Progress Note ---
ZANDER RICHTER 06/08/22 1110: Progress Note S: Tona Claire is an 82 yo female who was admitted to inpatient rehab for expressive aphasia beginning on 06/01. The patient at the time had complaints of confusion and word-finding difficulty, corroborated by her daughter's history. She was seen in the ED with unremarkable noncontrast head CT, but she was transferred to [facility] in [place] for elevated d-dimer with no PE on CTA. Echo performed on 06/03 showed mitral stenosis, pulmonary HTN, atrial enlargement, aortic sclerosis and diastolic dysfunction. She returned here on 06/04 with diagnosis of TIA for continued monitoring of neurological symptoms. The states she was able to perform ADLs at home prior to recent events. The patient today reports feeling well, about the same as yesterday's encounter. She indicates she has persistent word-finding difficulty and short-term memory difficulty, but these are not worsening from previous, and she is working with therapy regarding these issues at this time. The patient states her ambulation continues to stay the same, and she is able to ambulate with a walker. She denies any pain at this time. She also denies any decreased appetite, diarrhea, or constipation. Nursing notes the patient has been incontinent of urine overnight, though the patient has no complaints regarding this. O: VS stable: Temp 36.3 F, HR 82, RR 18, BP 116/73, SpO2 99% RA PE: -Constitutional: Elderly white female seated comfortably in recliner. The patient does not appear to be in distress. Calm and cooperative. -Cardiovascular: RRR, no murmurs -Pulmonary: LCTAB, no wheezes, crackles, rhonchi, rales -Peripheral Pulses: 2+ radial bilaterally -Neurological: Patient able to speak in full sentences without slurring of words, only one instance of word-finding difficulty through the encounter. Labs: 06/08 0528: Glucose 120 A/P: 1. TIA with expressive aphasia and debility: Continue monitoring symptoms, repeat imaging may be indicated with acute worsening. OT/PT as required. 2. AMS: Continue monitoring. 3. HTN: BPs largely stable here with slight elevation. Continue administration of home meds. Continue monitoring. 4. HLD, DM2, Neuropathy, GERD, Anxiety, Chronic coccygeal pain: Continue administration of home meds. 5. Stroke prophylaxis: Plavix and ASA initiated. 6. Difficulty ambulating: Continue monitoring for acute worsening, or for new-onset weakness. 7. Hyperglycemia: Persistent, mild elevation of glucose. Continue administering home meds and monitoring BS. AMI LATIF DO 06/09/22 0519: Supervisory-Addendum Brief Verification & Attestation Participated in pt care: history, MDM, physical Personally performed: exam, history, MDM, supervision of care Care discussed with: Medical Student Procedures: n/a Results interpretation: Verified all documentation Verification and Attestation of Medical Student E/M Service A medical student performed and documented this service in my presence. I reviewed and verified all information documented by the medical student and made modifications to such information, when appropriate. I personally performed the physical exam and medical decision making. Ami Latif, Jun 09, 2022,05:19 ZANDER RICHTER Jun 08, 2022 11:10 AMI LATIF DO Jun 09, 2022 05:19
--- NOTE | 2022-06-08 12:21 | Speech Therapy Daily Note ---
Speech Daily Progress Note Subjective Date Seen by Provider: Jun 08, 2022 Time Seen by Provider: 09:00 The patient was seated upright in her recliner, awake and alert, upon entrance to her room by the clinician. The patient greeted the clinician appropriately and was agreeable to participation in the cognitive linguistic treatment session. Objective The clinician and patient completed functional word-finding exercises by participating in structured, clinician-led conversation. Throughout the treatment session, the patient displayed two occasions of word-finding difficulty. During these occasions, the clinician was able to introduce and practice functional word finding strategies which included description, additional time, and returning to the subject. The patient displayed excellent ability to perform the word-finding strategies, however, required consistent verbal recall cues from the clinician to use. Assessment Assessment Current Status: Good Progress Treatment Plan Continue Plan of Care Speech Short Term Goals Short Term Goals Short Term Goals 1. The patient will display 80% accuracy with structured word-finding exercises, independently. 2. The patient will demonstrate word-finding strategies with 80% accuracy, independently. Speech Shelter Goals Foundation Assistant Goals 1. The patient will demonstrate improved word-finding abilities for safe discharge to the least restrictive environment. Time Frame: One Week. Speech-Plan Treatment Plan Speech Therapy Treatment Plan: Continue Plan of Care Treatment Duration: Jun 04, 2022 Frequency: Modified Program (IRF) Estimated Hrs Per Day: .5 hour per day Rehab Potential: Good Safety Risks/Education Teaching Recipient: Patient Teaching Methods: Demonstration, Discussion Response to Teaching: Verbalize Understanding, Return Demonstration Education Topics Provided: Word Finding Strategies Time Speech Therapy Time In: 09:00 Speech Therapy Time Out: 09:30 DATE: Jun 08, 2022 Total Billed Time: 30 Billed Treatment Time CateNITIN ELIZABETH ST Jun 08, 2022 12:21
--- NOTE | 2022-06-08 13:56 | Occupational Ther Daily Note ---
OT Current Status-Daily Note Subjective Pt in recliner, alert. Agrees to therapy. C/o no pain. Mental Status/Objective Patient Orientation: Person, Place, Time, Situation ADL-Treatment Pt agrees to shower. Pt SBA for transfer from recliner to toilet with FWW. Pt pulled down underwear before sitting on toilet. Pt removed underwear while sitting on toilet. Removed gown while on toilet. Pt SBA for transfer from toilet to sink. Pt stood at the sink with FWW to complete oral hygiene with CGA due to LOB. Pt SBA to transfer from FWW to shower bench. Pt able to shower by self after set up, sitting on shower bench 100% of time. Pt able to dry entire body by self. Pt CGA to transfer from shower bench to seat on FWW. Pt laced feet through briefs. SBA to stand then hikes pants over hips by self. Pt donned upper body clothing by self after set up. Pt SBA to ambulate to with FWW back to recliner. Pt donned/doffed socks independently using figure 4 method sitting at recliner. Assist provided for EUGENIA diane. Pt in recliner at end of session. Phone/call light in reach. All needs met. Therapy Code Descriptions/Definitions Functional [place] Measure: 0=Not Assessed/NA 4=Minimal Assistance 1=Total Assistance 5=Supervision or Setup 2=Maximal Assistance 6=Modified [place] 3=Moderate Assistance 7=Complete IndependenceSCALE: Activities may be completed with or without assistive devices. 7-Jcnxisxnlm-otkvtbr completes the activity by him/herself with no assistance from a helper. 5-Set-up or Clean-up Assistance-helper sets up or cleans up; patient completes activity. [place] assists only prior to or following the activity. 4-Supervision or Touching Assistance-helper provides verbal cues and/or touching/steadying and/or contact guard assistance as patient completes activity. Assistance may be provided throughout the activity or intermittently. 3-Partial/Moderate Assistance-helper does LESS THAN HALF the effort. [place] lifts, holds or supports trunk or limbs, but provides less than half the effort. 2-Substantial/Maximal Assistance-helper does MORE THAN HALF the effort. [place] lifts or holds trunk or limbs and provides more than half the effort. 3-Gsyccerbe-qwsnia does ALL the effort. Patient does none of the effort to complete the activity. Or, the assistance of 2 or more helpers is required for the patient to complete the activity. If activity was not attempted, code reason: 7-Patient Refused. 9-Not Applicable-not attempted and the patient did not perform the activity before the current illness, exacerbation or injury. 10-Not Attempted due to Environmental Limitations-(lack of equipment, weather restraints, etc.). 88-Not Attempted due to Medical Conditions or Safety Concerns. Oral Hygiene (QC): 4 Shower/Bathe Self (QC): 4 Upper Body Dressing (QC): 5 Lower Body Dressing (QC): 3 On/Off Footwear: 3 (mod A) Toileting Hygiene (QC): 4 Toilet Transfer (QC): 4 Pt displayed several episode of LOB today while ambulating and standing unable to right self. Pt was SBA/CGA for all ambulation and transfers. Other Treatment Pt participated in fine motor and visual perceptual tasks. Pt unable to retain word when attempting to find in word search, cues required. Pt required instr uctions multiple times on how to search for words. Reports she has never done a word search before and didn't know how. OT Short Term Goals Short Term Goals Time Frame: Jun 10, 2022 Eatin Oral hygiene: 5 Toileting hygiene: 5 Shower/bathe self: 5 Upper body dressin Lower body dressin Putting on/taking off footwear: 5 OT Long-Term Goals Long-Term Goals Time Frame: Jun 16, 2022 Acute change in mental status: 0 Inattention: 0 Disorganized thinkin Altered level of consciousness: 0 Eating (QC): 6 Oral Hygiene (QC): 6 Toileting Hygiene (QC): 6 Shower/Bathe Self (QC): 6 Upper Body Dressing (QC): 6 Lower Body Dressing (QC): 6 On/Off Footwear (QC): 6 Additional Goals: 1-Demonstrate ADL Tasks, 2-Verbalize Understanding, 3- ImproveStrength/Segun 1=Demonstrate adherence to instructed precautions during ADL tasks. 2=Patient will verbalize/demonstrate understanding of assistive devices /modifications for ADL. 3=Patient will improve strength/tolerance for activity to enable patient to perform ADL's. OT Education/Plan Problem List/Assessment Assessment: Decreased Activ Tolerance, Impaired Funct Balance, Impaired Self- Care Skills Discharge Recommendations Plan/Recommendations: Continue POC Treatment Plan/Plan of Care Patient would benefit from OT for education, treatment and training to promote independence in ADL's, mobility, safety and/or upper extremity function for ADL's. Plan of Care: ADL Retraining, Functional Mobility, Group Exercise/Act as Ind, Orthotic Fitting/Training, UE Funct Exercise/Act, UE Neuromus Re-Ed/Coord Treatment Duration: Jun 16, 2022 Frequency: At least 5 of 7 days/Wk (IRF) Estimated Hrs Per Day: 1.5 hours per day (75-90 min/day ) Agreement: Yes Rehab Potential: Good Time Start Time: 09:30 Stop Time: 10:45 DATE: Jun 08, 2022 Total Time Billed (hr/min): 75 Billed Treatment Time 1 visit ADL 4 (60 min) FA (15 min) VIVIANA IBARRA Jun 08, 2022 13:56
[2022-06-08 20:37] VITALS: BP 123/66
[2022-06-08] MEDS: PRAMIPEXOLE 0.125 MG (MIRAPEX) TABLET PO SCH (21:08)
[2022-06-08] MEDS: LORATADINE (CLARITIN) 10 MG TAB PO SCH (21:09)
[2022-06-08] MEDS: MELATONIN 3 MG TABLET PO PRN (23:54)
--- NOTE | 2022-06-09 05:30 | PM&R Progress Note ---
Subjective HPI/CC On Admission Date Seen by Provider: Jun 09, 2022 Time Seen by Provider: 13:00 Subjective/Events-last exam 06/09/2022: No major issues Questioning about Lovenox I added Walking a lot better No pain reported 06/08/2022: No major issues Incontinence noted and will start bladder training AL at DC for patient and her 06/07/2022: Patient doing well No major issues Blood sugars reviewed No falls No pain 06/06/2022: Doing well Improved sugars No pain reported Weakness noted 06/05/2022: Doing well Settling in well No expressive aphasia noted Overall weak BM+ Increased sugar so will start home dose of Glimepride Review of Systems General: Fatigue, Malaise Objective Exam Vital Signs Vital Signs Date Time Temp Pulse Resp B/P (MAP) Pulse Ox O2 Delivery O2 Flow Rate FiO2 06/09/22 09:00 Room Air 06/09/22 07:39 35.9 69 16 147/69 (95) 98 Capillary Refill : General Appearance: No Apparent Distress, WD/WN, Anxious, Chronically ill, Thin HEENT: PERRL/EOMI, Normal ENT Inspection, Pharynx Normal Neck: Full Range of Motion, Normal Inspection, Non Tender, Supple, Carotid Bruit Respiratory: Chest Non Tender, Lungs Clear, Normal Breath Sounds, No Accessory Muscle Use, No Respiratory Distress Cardiovascular: Regular Rate, Rhythm, No Edema, No Gallop, No JVD, No Murmur, Normal Peripheral Pulses Gastrointestinal: Normal Bowel Sounds, No Organomegaly, No Pulsatile Mass, Non Tender, Soft Back: Normal Inspection, No CVA Tenderness, No Vertebral Tenderness Extremity: Normal Capillary Refill, Normal Inspection, Normal Range of Motion, Non Tender, No Calf Tenderness, No Pedal Edema Neurologic/Psychiatric: Alert, Oriented x3, Normal Mood/Affect, crnp II-XII Norm as Tested, Abnormal Gait, Motor Weakness (Generalized) Skin: Normal Color, Warm/Dry Lymphatic: No Adenopathy Results/Procedures Lab Patient resulted labs reviewed. FIM Transfers Therapy Code Descriptions/Definitions Functional [place] Measure: 0=Not Assessed/NA 4=Minimal Assistance 1=Total Assistance 5=Supervision or Setup 2=Maximal Assistance 6=Modified [place] 3=Moderate Assistance 7=Complete IndependenceSCALE: Activities may be completed with or without assistive devices. 5-Elsqalthyg-gptkuqm completes the activity by him/herself with no assistance from a helper. 5-Set-up or Clean-up Assistance-helper sets up or cleans up; patient completes activity. [place] assists only prior to or following the activity. 4-Supervision or Touching Assistance-helper provides verbal cues and/or touching/steadying and/or contact guard assistance as patient completes activity. Assistance may be provided throughout the activity or intermittently. 3-Partial/Moderate Assistance-helper does LESS THAN HALF the effort. [place] lifts, holds or supports trunk or limbs, but provides less than half the effort. 2-Substantial/Maximal Assistance-helper does MORE THAN HALF the effort. [place] lifts or holds trunk or limbs and provides more than half the effort. 6-Wpgckwaoz-zufxwu does ALL the effort. Patient does none of the effort to complete the activity. Or, the assistance of 2 or more helpers is required for the patient to complete the activity. If activity was not attempted, code reason: 7-Patient Refused. 9-Not Applicable-not attempted and the patient did not perform the activity before the current illness, exacerbation or injury. 10-Not Attempted due to Environmental Limitations-(lack of equipment, weather restraints, etc.). 88-Not Attempted due to Medical Conditions or Safety Concerns. Roll Left to Right (QC): 6 Sit to Lying (QC): 6 Sit to Stand (QC): 4 Chair/Stf-yp-Cphyz Xfer(QC): 4 Car Transfer (QC): 3 Gait Training Does the Patient Walk?: Yes Distance: 500' Walk 10 feet (QC): 5 Walk 50 ft with 2 Turns(QC): 5 Walk 150 ft (QC): 5 Walking 10ft/uneven surface-QC: 3 Gait Persons Needed: 1 Gait Assistive Device: Walker 4 Wheeled Wheelchair Training Does the Pt Use a Wheelchair?: No Distance: 0 Wheel 50 ft with 2 turns (QC): 9 Wheel 150 ft (QC): 9 Stair Training #of Steps: 12 1 Step (curb) (QC): 3 4 Steps (QC): 3 12 Steps (QC): 3 Balance Picking up an Object (QC): 3 ADL-Treatment Eating (QC): 6 Oral Hygiene (QC): 4 Shower/Bathe Self (QC): 4 Upper Body Dressing (QC): 5 Lower Body Dressing (QC): 3 On/Off Footwear (QC): 3 (mod A) Toileting Hygiene (QC): 4 Toilet Transfer (QC): 4 Assessment/Plan Assessment and Plan Assess & Plan/Chief Complaint Assessment: Acute ischemic stroke 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 Pacemaker Diabetes Recent type II NSTEMI Hypertension Hyperlipidemia Neuropathy GERD Chronic coccygeal pain Anxiety Elevated liver enzymes will hold statin and Zetia on 06/08/2022 Plan: Home meds Blood sugar checks Supportive care Aggressive rehab 06/05/2022: Restart OHA 06/06/2022: Monitor sugars 06/07/2022: Supportive care Continue monitoring blood sugars Hold statin and Zetia 06/08/2022: Supportive care 06/09/2022: Lovenox for DVT PPx (1) Acute ischemic stroke (2) TIA (transient ischemic attack) (3) Expressive aphasia (4) NSTEMI (non-ST elevated myocardial infarction) (5) Pacemaker (6) Hypertension (7) Amputation of toe of right foot (8) Uncontrolled diabetes mellitus Status: Acute RAJESH LATIF DO Jun 09, 2022 05:30
[2022-06-09] MEDS: inSUlin ASPART (NovoLOG) 1 UNIT/0.01 ML (CHARGE PER UNIT) SC SCH ×4 (05:55→21:34)
[2022-06-09] MEDS: MULTIVIT W/MINERALS TAB (THERAGRAN M) PO SCH (06:52)
--- NOTE | 2022-06-09 07:27 | Occupational Ther Daily Note ---
OT Current Status-Daily Note Subjective Pt alert, lying in bed. Pt agrees to therapy. No c/o pain at this time. Pt vomited after eating breakfast due to phlegm, reported to nrsg. Pt stated that moved to assisted living at [facility] last night and that she will be going there after discharge from ARU. Mental Status/Objective Patient Orientation: Person, Place, Time, Situation Attachments: IV ADL-Treatment Pt incontinent and using Purwick at night. Pt ambulated using 4WW to bathroom with close SBA due to balance issues. SBA for toilet transfer and toileting. After set up, pt able to thread brief over feet then SBA while hiking pants in standing. Pt stood at sink to complete hand washing with 1 LOB toward L side, reached with L UE to stabilize self with wall, close SBA. Pt ambulated back to recliner to eat breakfast. Eating independently. Pt incontinent of urine during breakfast, ambulated to bathroom and transferred onto toilet. Completed hygiene and clothing manipulation with SBA for safety. Pt then returned to recliner to complete dressing. Upper body dressing set up. Lower body dressing, threaded legs through pants by self then SBA while pt stood to hike pants over hips. Set up for footwear. Pt declined to complete oral care though stood at sink 2x's to complete hand washing with SBA. After session, pt sitting in recliner with call light/phone in reach. All needs met in room. Therapy Code Descriptions/Definitions Functional [place] Measure: 0=Not Assessed/NA 4=Minimal Assistance 1=Total Assistance 5=Supervision or Setup 2=Maximal Assistance 6=Modified [place] 3=Moderate Assistance 7=Complete IndependenceSCALE: Activities may be completed with or without assistive devices. 0-Kesiaeuaye-crtmybn completes the activity by him/herself with no assistance from a helper. 5-Set-up or Clean-up Assistance-helper sets up or cleans up; patient completes activity. [place] assists only prior to or following the activity. 4-Supervision or Touching Assistance-helper provides verbal cues and/or touching/steadying and/or contact guard assistance as patient completes activity. Assistance may be provided throughout the activity or intermittently. 3-Partial/Moderate Assistance-helper does LESS THAN HALF the effort. [place] lifts, holds or supports trunk or limbs, but provides less than half the effort. 2-Substantial/Maximal Assistance-helper does MORE THAN HALF the effort. [place] lifts or holds trunk or limbs and provides more than half the effort. 6-Obfcdcevp-tubjxp does ALL the effort. Patient does none of the effort to complete the activity. Or, the assistance of 2 or more helpers is required for the patient to complete the activity. If activity was not attempted, code reason: 7-Patient Refused. 9-Not Applicable-not attempted and the patient did not perform the activity before the current illness, exacerbation or injury. 10-Not Attempted due to Environmental Limitations-(lack of equipment, weather restraints, etc.). 88-Not Attempted due to Medical Conditions or Safety Concerns. Eating (QC): 6 Oral Hygiene (QC): 7 Shower/Bathe Self (QC): 7 Upper Body Dressing (QC): 5 Lower Body Dressing (QC): 4 On/Off Footwear: 5 Toileting Hygiene (QC): 4 Toilet Transfer (QC): 4 Pt continues to have balance issues during dynamic standing tasks. OT Short Term Goals Short Term Goals Time Frame: Jun 10, 2022 Eatin Oral hygiene: 5 Toileting hygiene: 5 Shower/bathe self: 5 Upper body dressin Lower body dressin Putting on/taking off footwear: 5 OT Booster Station Operator Goals Jail Goals Time Frame: Jun 16, 2022 Acute change in mental status: 0 Inattention: 0 Disorganized thinkin Altered level of consciousness: 0 Eating (QC): 6 Oral Hygiene (QC): 6 Toileting Hygiene (QC): 6 Shower/Bathe Self (QC): 6 Upper Body Dressing (QC): 6 Lower Body Dressing (QC): 6 On/Off Footwear (QC): 6 Additional Goals: 1-Demonstrate ADL Tasks, 2-Verbalize Understanding, 3- ImproveStrength/Segun 1=Demonstrate adherence to instructed precautions during ADL tasks. 2=Patient will verbalize/demonstrate understanding of assistive devices /modifications for ADL. 3=Patient will improve strength/tolerance for activity to enable patient to perform ADL's. OT Education/Plan Problem List/Assessment Assessment: Decreased UE Strength, Impaired Funct Balance Discharge Recommendations Plan/Recommendations: Continue POC Treatment Plan/Plan of Care Patient would benefit from OT for education, treatment and training to promote independence in ADL's, mobility, safety and/or upper extremity function for ADL's. Plan of Care: ADL Retraining, Functional Mobility, Group Exercise/Act as Ind, Orthotic Fitting/Training, UE Funct Exercise/Act, UE Neuromus Re-Ed/Coord Treatment Duration: Jun 16, 2022 Frequency: At least 5 of 7 days/Wk (IRF) Estimated Hrs Per Day: 1.5 hours per day (75-90 min/day ) Agreement: Yes Rehab Potential: Good Time Start Time: 07:00 Stop Time: 08:15 DATE: Jun 09, 2022 Total Time Billed (hr/min): 75 Billed Treatment Time 1 visit-ADL 5 (75 min) VIVIANA IBARRA Jun 09, 2022 07:27
[2022-06-09 07:39] VITALS: BP 147/69
[2022-06-09] MEDS: metFORMIN 500 MG (GLUCOPHAGE) TAB PO SCH ×2 (08:22→17:21)
[2022-06-09] MEDS: VITAMIN D3 25 MCG (1,000 UNITS) TABLET PO SCH (08:22)
[2022-06-09] MEDS: DOCUSATE SODIUM 100 MG (COLACE) CAP PO SCH ×2 (08:22→21:31)
[2022-06-09] MEDS: GLIMEPIRIDE 2 MG (AMARYL) TAB PO SCH ×2 (08:22→21:32)
[2022-06-09] MEDS: SIMETHICONE 80 MG (MYLICON) CHEW PO SCH ×4 (08:22→21:30)
[2022-06-09] MEDS: ASPIRIN 81 MG CHEW (CHILDREN'S ASA) PO SCH (08:23)
[2022-06-09] MEDS: polyethylene glycoL POWDER 17 GM (MIRALAX) PACK PO SCH ×2 (08:23→21:30)
[2022-06-09] MEDS: lisINopril 40 MG (PRINIVIL) TABLET PO SCH (08:23)
[2022-06-09] MEDS: MAGNESIUM OXIDE (MAG-OX)400 MG TAB PO SCH ×2 (08:23→17:21)
[2022-06-09] MEDS: CLOPIDOGREL 75 MG (PLAVIX) TABLET PO SCH (08:23)
[2022-06-09] MEDS: SENNA W/DOCUSATE (SENOKOT S) TABLET PO SCH ×2 (08:23→21:33)
[2022-06-09] MEDS: GABAPENTIN 300 MG (NEURONTIN) CAP PO SCH ×3 (08:23→21:33)
[2022-06-09] MEDS: PANTOPRAZOLE 20 MG TABLET (PROTONIX) PO SCH (08:23)
[2022-06-09] MEDS: FLUTICASONE NASAL SPRAY (FLONASE) 16 GM BTL NS SCH (08:26)
[2022-06-09] MEDS: HYDROCORTISONE 1% CREAM 30 GM TUBE TP SCH ×3 (08:27→21:30)
--- NOTE | 2022-06-09 09:07 | Progress Note ---
ZANDER RICHTER 06/09/22 0907: Progress Note S: Tona Claire is an 82 yo female who was admitted to inpatient rehab for expressive aphasia beginning on 06/01. The patient at the time had complaints of confusion and word-finding difficulty, corroborated by her daughter's history. She was seen in the ED with unremarkable noncontrast head CT, but she was transferred to [facility] in [place] for elevated d-dimer with no PE on CTA. Echo performed on 06/03 showed mitral stenosis, pulmonary HTN, atrial enlargement, aortic sclerosis and diastolic dysfunction. She returned here on 06/04 with diagnosis of TIA for continued monitoring of neurological symptoms. The states she was able to perform ADLs at home prior to recent events. The patient today reports feeling well, about the same as yesterday's encounter. She indicates she has persistent word-finding difficulty and short-term memory difficulty, but these are not worsening from previous, and she is working with therapy regarding these issues. The patient states her ambulation continues to stay the same, and she is able to ambulate with a walker. The patient also has complaint of persistent vomiting that she describes as a buildup of phlegm in her throat. The patient indicates the Claritin she was given last night did not improve her symptoms, while Donna at home typically does. She denies any pain at this time. She also denies any decreased appetite, diarrhea, or constipation. She notes she has not pooped since 2 days ago, but this is normal for her. Nursing reports persistent urinary incontinence despite PureWick use, but this appears to be a chronic problem at home as well which patient has no concern regarding. O: VS stable: Temp 36.1 F, HR 72, RR 16, BP 116/73, SpO2 98% RA PE: -Constitutional: Elderly white female seated comfortably in recliner. The patient does not appear to be in distress. Calm and cooperative. -Cardiovascular: RRR, no murmurs -Pulmonary: LCTAB, no wheezes, crackles, rhonchi, rales -Peripheral Pulses: 2+ radial bilaterally -Neurological: Patient able to speak in full sentences without slurring of words, no instances of word-finding difficulty through the encounter. Labs: 06/09 0544: Glucose 115 A/P: 1. TIA with expressive aphasia and debility: Continue monitoring symptoms, repeat imaging may be indicated with acute worsening. OT/PT as required. 2. AMS: Continue monitoring. 3. HTN: BPs largely stable here with slight elevation. Continue administration of home meds. Continue monitoring. 4. HLD, DM2, Neuropathy, GERD, Anxiety, Chronic coccygeal pain: Continue administration of home meds. 5. Stroke prophylaxis: Plavix and ASA initiated. 6. Difficulty ambulating: Continue monitoring for acute worsening, or for new- onset weakness. 7. Hyperglycemia: Persistent, mild elevation of glucose. Continue administering home meds and monitoring BS. 8. Urinary incontinence: Continue monitoring and cleaning patient. Eventual discharge to assisted living facility likely indicated in part due to patient's persistent urinary incontinence. AMI LATIF DO 06/09/22 1637: Supervisory-Addendum Brief Verification & Attestation Participated in pt care: history, MDM, physical Personally performed: exam, history, MDM, supervision of care Care discussed with: Medical Student Procedures: n/a Results interpretation: Verified all documentation Verification and Attestation of Medical Student E/M Service A medical student performed and documented this service in my presence. I reviewed and verified all information documented by the medical student and made modifications to such information, when appropriate. I personally performed the physical exam and medical decision making. Ami Latif, Jun 09, 2022,16:37 ZANDER RICHTER Jun 09, 2022 09:07 AMI LATIF DO Jun 09, 2022 16:37
--- NOTE | 2022-06-09 09:45 | Speech Therapy Daily Note ---
Speech Daily Progress Note Subjective Date Seen by Provider: Jun 09, 2022 Time Seen by Provider: 09:00 The patient was seated upright in the recliner, awake and alert, upon entrance to her room by the clinician. The patient greeted the clinician appropriately and was agreeable to participation in the cognitive linguistic treatment session. Objective Following a chart review and a discussion with the GUN BARREL FINISHER on this date, the patient has displayed multiple episodes of urinary incontinence. Per patient, the incontinent periods have occurred for the previous two months. The patient reports prior to admission, she was able to change her own briefs and aid her in changing his briefs "throughout the night and in the morning." The clinician discussed the importance of changing briefs once an episode of incontinence has occurred for avoidance of UTI, skin breakdown, odor, and overall patient safety. The patient additionally stated, "Here they have the system on me at night." The patient was referring to the purewick catheter incontinence device. The clinician encouraged the patient to attempt a schedule for toileting to avoid incontinence, however, the patient continued to refer to her "super brief." With the aid of occupational therapy, the clinician would like reinforce the patient's improved independence with incontinent management as she is currently requiring staff assistance. The patient and clinician discussed and practiced word-finding and memory strategies on this date throughout structured conversation. Zero episodes of word-finding difficulty were displayed throughout the skilled treatment session. The patient does continue to report the necessity to improve "memory of pulling up information." Due to this, the clinician discussed functional memory strategies which could be completed throughout her daily life. The strategies included calendar use and pill box administration. The patient is agreeable to continue a calendar, however, stated "They have told me to keep a pill box but I don't." If the patient discharged to an assisted living community, medication management should be provided by the care staff. The patient stated her sgdxeula-rk-tey completes the patient's 's checkbook once per month and her own daughter has access to her own checking account. Assessment Assessment Current Status: Fair Progress Treatment Plan Continue Plan of Care Speech Short Term Goals Short Term Goals Short Term Goals 1. The patient will display 80% accuracy with structured word-finding exercises, independently. 2. The patient will demonstrate word-finding strategies with 80% accuracy, independently. Speech Penitentiary Goals Penitentiary Goals 1. The patient will demonstrate improved word-finding abilities for safe discharge to the least restrictive environment. Time Frame: One Week. Speech-Plan Treatment Plan Speech Therapy Treatment Plan: Continue Plan of Care Treatment Duration: Jun 04, 2022 Frequency: Modified Program (IRF) Estimated Hrs Per Day: .5 hour per day Rehab Potential: Fair Safety Risks/Education Teaching Recipient: Patient Teaching Methods: Discussion Response to Teaching: Reinforcement Needed Education Topics Provided: Functional Memory and Word-Finding Strategies Time Speech Therapy Time In: 09:00 Speech Therapy Time Out: 09:30 DATE: Jun 09, 2022 Total Billed Time: 30 Billed Treatment Time 1, MARIANNA LUJAN Jun 09, 2022 09:45
--- NOTE | 2022-06-09 10:49 | Physical Therapy Daily Note ---
PT Daily Note-Current Subjective Pt sitting in recliner upon arrival. Pt agrees to PT. Pain Section J - Health Conditions 1. Rarely or not at all 2. Occasionally 3. Frequently 4. Almost constantly 8. Unable to answer Pain Effect on Sleep: 1 Pain Interference with Therapy: 1 Pain Interference w/Day-to-Day: 1 Mental Status Patient Orientation: Person, Confused, Place Transfers SCALE: Activities may be completed with or without assistive devices. 4-Teymfavsia-lgvtbqu completes the activity by him/herself with no assistance from a helper. 5-Set-up or Clean-up Assistance-helper sets up or cleans up; patient completes activity. [place] assists only prior to or following the activity. 4-Supervision or Touching Assistance-helper provides verbal cues and/or touching/steadying and/or contact guard assistance as patient completes activity. Assistance may be provided throughout the activity or intermittently. 3-Partial/Moderate Assistance-helper does LESS THAN HALF the effort. [place] lifts, holds or supports trunk or limbs, but provides less than half the effort. 2-Substantial/Maximal Assistance-helper does MORE THAN HALF the effort. [place] lifts or holds trunk or limbs and provides more than half the effort. 0-Oadnyxvbt-hvdefw does ALL the effort. Patient does none of the effort to complete the activity. Or, the assistance of 2 or more helpers is required for the patient to complete the activity. If activity was not attempted, code reason: 7-Patient Refused. 9-Not Applicable-not attempted and the patient did not perform the activity before the current illness, exacerbation or injury. 10-Not Attempted due to Environmental Limitations-(lack of equipment, weather restraints, etc.). 88-Not Attempted due to Medical Conditions or Safety Concerns. Sit to Stand (QC): 4 Toilet Transfer (QC): 4 Weight Bearing Right Lower Extremity: Right Weight Bearing/Tolerated Heel Weight bearing only. Patient has a orthopedic shoe to decrease forefoot wt. Bearing, however esauon reports it is at home. Gait Training Does the Patient Walk?: Yes Distance: 250', 500' Walk 10 feet (QC): 5 Walk 50 ft with 2 Turns(QC): 5 Walk 150 ft (QC): 5 Gait Assistive Device: Walker 4 Wheeled Wheelchair Training Does the Pt Use a Wheelchair?: No Exercises NuStep Minutes: 15 NuStep Workload: 5 Treatments TF to standing and use BR to start tx. Pt amb. in hallway, taking RB as needed. Pt use NuStep with RB following. Pt amb. in hallway then completes Seated EX before returning to room to use BR & rest at end of tx. All needs met, call light in hand. Assessment Current Status: Fair Progress Pt demonstrates increased confusion with following directions and safety during tx today. Redirection and VC given. PT Oyster Tonger Goals Oyster Tonger Goals PT Fdc Goals Time Frame: Jun 19, 2022 Roll Left & Right (QC): 6 Sit to Lying (QC): 6 Lying-Sitting on Side/Bed(QC): 6 Sit to Stand (QC): 6 Chair/Uqs-lb-Iyejd Xfer(QC): 6 Toilet Transfer (QC): 6 Car Transfer (QC): 6 Does the Patient Walk: Yes Walk 10 feet (QC): 6 Walk 50ft with 2 Turns (QC): 6 Walk 150 ft (QC): 6 Walking 10ft on Uneven Surface: 6 1 Step (curb) (QC): 6 4 Steps (QC): 4 12 Steps (QC): 4 Picking up an Object (QC): 6 Does the Pt use WC or Scooter?: No Wheel 50 feet with 2 turns (QC: 9 Wheel 150 feet: 9 PT Plan Problem List Problem List: Activity Tolerance, Functional Strength Treatment/Plan Treatment Plan: Continue Plan of Care Treatment Plan: Bed Mobility, Education, Functional Activity Segun, Functional Strength, Group Therapy, Gait, Safety, Therapeutic Exercise, Transfers Treatment Duration: Jul 17, 2022 Frequency: At least 5 of 7 days/Wk (IRF) Estimated Hrs Per Day: 1.5 hours per day Patient and/or Family Agrees t: Yes Safety Risks/Education Patient Education: Gait Training, Correct Positioning, Safety Issues Teaching Recipient: Patient Teaching Methods: Discussion Response to Teaching: Verbalize Understanding Time Time In: 930 Time Out: 1045 DATE: Jun 09, 2022 Total Billed Treatment Time: 75 Total Billed Treatment 1, GT x2 (30m), EX x2 (30m) & FA (15m) IRAJ ESCUDERO WET SUIT GLUER Jun 09, 2022 10:49
[2022-06-09] MEDS ORDERED: ENOXAPARIN 40 MG/0.4 ML (LOVENOX) SYR SC SCH (12:00)
[2022-06-09] MEDS ORDERED: CATHETER FLUSH 10 ML SYR IVP PRN (15:00)
[2022-06-09 20:01] VITALS: BP 137/73
[2022-06-09] MEDS: PRAMIPEXOLE 0.125 MG (MIRAPEX) TABLET PO SCH (21:30)
[2022-06-09] MEDS: MONTELUKAST 10 MG (SINGULAIR) TAB PO SCH (21:32)
[2022-06-09] MEDS: MELATONIN 3 MG TABLET PO PRN (21:32)
[2022-06-09] MEDS: LORATADINE (CLARITIN) 10 MG TAB PO SCH (21:33)
[2022-06-09] MEDS: CATHETER FLUSH 10 ML SYR IVP SCH (21:34)
--- NOTE | 2022-06-10 05:15 | PM&R Progress Note ---
Subjective HPI/CC On Admission Date Seen by Provider: Jun 10, 2022 Time Seen by Provider: 11:00 Subjective/Events-last exam 06/10/2022: Doing well DC Lovenox due to abdominal wall hematoma on right side just after 1 dose of Lovenox Monitoring closely Sugars are ok 06/09/2022: No major issues Questioning about Lovenox I added Walking a lot better No pain reported 06/08/2022: No major issues Incontinence noted and will start bladder training AL at DC for patient and her 06/07/2022: Patient doing well No major issues Blood sugars reviewed No falls No pain 06/06/2022: Doing well Improved sugars No pain reported Weakness noted 06/05/2022: Doing well Settling in well No expressive aphasia noted Overall weak BM+ Increased sugar so will start home dose of Glimepride Review of Systems General: Fatigue, Malaise Objective Exam Vital Signs Vital Signs Date Time Temp Pulse Resp B/P (MAP) Pulse Ox O2 Delivery O2 Flow Rate FiO2 06/10/22 09:00 Room Air 06/10/22 07:28 36.0 75 18 156/60 (92) 06/09/22 21:15 99 Capillary Refill : General Appearance: No Apparent Distress, WD/WN, Anxious, Chronically ill, Thin HEENT: PERRL/EOMI, Normal ENT Inspection, Pharynx Normal Neck: Full Range of Motion, Normal Inspection, Non Tender, Supple, Carotid Brui t Respiratory: Chest Non Tender, Lungs Clear, Normal Breath Sounds, No Accessory Muscle Use, No Respiratory Distress Cardiovascular: Regular Rate, Rhythm, No Edema, No Gallop, No JVD, No Murmur, Normal Peripheral Pulses Gastrointestinal: Normal Bowel Sounds, No Organomegaly, No Pulsatile Mass, Non Tender, Soft Back: Normal Inspection, No CVA Tenderness, No Vertebral Tenderness Extremity: Normal Capillary Refill, Normal Inspection, Normal Range of Motion, Non Tender, No Calf Tenderness, No Pedal Edema Neurologic/Psychiatric: Alert, Oriented x3, Normal Mood/Affect, electronic game developer II-XII Norm as Tested, Abnormal Gait, Motor Weakness (Generalized) Skin: Normal Color, Warm/Dry Lymphatic: No Adenopathy Results/Procedures Lab Patient resulted labs reviewed. FIM Transfers Therapy Code Descriptions/Definitions Functional [place] Measure: 0=Not Assessed/NA 4=Minimal Assistance 1=Total Assistance 5=Supervision or Setup 2=Maximal Assistance 6=Modified [place] 3=Moderate Assistance 7=Complete IndependenceSCALE: Activities may be completed with or without assistive devices. 5-Vxunjwtxxe-qrccrrz completes the activity by him/herself with no assistance from a helper. 5-Set-up or Clean-up Assistance-helper sets up or cleans up; patient completes activity. [place] assists only prior to or following the activity. 4-Supervision or Touching Assistance-helper provides verbal cues and/or touching/steadying and/or contact guard assistance as patient completes activity. Assistance may be provided throughout the activity or intermittently. 3-Partial/Moderate Assistance-helper does LESS THAN HALF the effort. [place] lifts, holds or supports trunk or limbs, but provides less than half the effort. 2-Substantial/Maximal Assistance-helper does MORE THAN HALF the effort. [place] lifts or holds trunk or limbs and provides more than half the effort. 4-Couzqzwtk-vbbqsu does ALL the effort. Patient does none of the effort to complete the activity. Or, the assistance of 2 or more helpers is required for the patient to complete the activity. If activity was not attempted, code reason: 7-Patient Refused. 9-Not Applicable-not attempted and the patient did not perform the activity before the current illness, exacerbation or injury. 10-Not Attempted due to Environmental Limitations-(lack of equipment, weather restraints, etc.). 88-Not Attempted due to Medical Conditions or Safety Concerns. Roll Left to Right (QC): 6 Sit to Lying (QC): 6 Sit to Stand (QC): 4 Chair/Wym-bs-Roxtz Xfer(QC): 4 Car Transfer (QC): 3 Gait Training Does the Patient Walk?: Yes Distance: 250', 500' Walk 10 feet (QC): 5 Walk 50 ft with 2 Turns(QC): 5 Walk 150 ft (QC): 5 Walking 10ft/uneven surface-QC: 3 Gait Persons Needed: 1 Gait Assistive Device: Walker 4 Wheeled Wheelchair Training Does the Pt Use a Wheelchair?: No Distance: 0 Wheel 50 ft with 2 turns (QC): 9 Wheel 150 ft (QC): 9 Stair Training #of Steps: 12 1 Step (curb) (QC): 3 4 Steps (QC): 3 12 Steps (QC): 3 Balance Picking up an Object (QC): 3 ADL-Treatment Eating (QC): 6 Oral Hygiene (QC): 7 Shower/Bathe Self (QC): 7 Upper Body Dressing (QC): 5 Lower Body Dressing (QC): 4 On/Off Footwear (QC): 5 Toileting Hygiene (QC): 4 Toilet Transfer (QC): 4 Assessment/Plan Assessment and Plan Assess & Plan/Chief Complaint Assessment: Acute ischemic stroke 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 Diabetes Recent type II NSTEMI Hypertension Hyperlipidemia Neuropathy GERD Chronic coccygeal pain Anxiety Elevated liver enzymes will hold statin and Zetia on 06/08/2022 Plan: Home meds Blood sugar checks Supportive care Aggressive rehab 06/05/2022: Restart OHA 06/06/2022: Monitor sugars 06/07/2022: Supportive care Continue monitoring blood sugars Hold statin and Zetia 06/08/2022: Supportive care 06/09/2022: Lovenox for DVT PPx 06/10/2022: DC Lovenox due to hematoma abdominal wall (1) Acute ischemic stroke (2) TIA (transient ischemic attack) (3) Expressive aphasia (4) NSTEMI (non-ST elevated myocardial infarction) (5) Pacemaker (6) Hypertension (7) Amputation of toe of right foot (8) Uncontrolled diabetes mellitus Status: Acute RAJESH LATIF DO Jun 10, 2022 05:15
[2022-06-10] MEDS: inSUlin ASPART (NovoLOG) 1 UNIT/0.01 ML (CHARGE PER UNIT) SC SCH ×4 (05:54→21:12)
[2022-06-10] MEDS: CATHETER FLUSH 10 ML SYR IVP SCH ×3 (06:23→21:13)
[2022-06-10] MEDS: MULTIVIT W/MINERALS TAB (THERAGRAN M) PO SCH (06:23)
[2022-06-10 07:28] VITALS: BP 156/60
[2022-06-10] MEDS: metFORMIN 500 MG (GLUCOPHAGE) TAB PO SCH ×2 (08:22→18:23)
[2022-06-10] MEDS: VITAMIN D3 25 MCG (1,000 UNITS) TABLET PO SCH (08:23)
[2022-06-10] MEDS: FLUTICASONE NASAL SPRAY (FLONASE) 16 GM BTL NS SCH (08:23)
[2022-06-10] MEDS: SENNA W/DOCUSATE (SENOKOT S) TABLET PO SCH ×2 (08:23→21:10)
[2022-06-10] MEDS: MAGNESIUM OXIDE (MAG-OX)400 MG TAB PO SCH ×2 (08:23→18:22)
[2022-06-10] MEDS: lisINopril 40 MG (PRINIVIL) TABLET PO SCH (08:23)
[2022-06-10] MEDS: GABAPENTIN 300 MG (NEURONTIN) CAP PO SCH ×3 (08:23→21:10)
[2022-06-10] MEDS: CLOPIDOGREL 75 MG (PLAVIX) TABLET PO SCH (08:23)
[2022-06-10] MEDS: ASPIRIN 81 MG CHEW (CHILDREN'S ASA) PO SCH (08:23)
[2022-06-10] MEDS: SIMETHICONE 80 MG (MYLICON) CHEW PO SCH ×4 (08:23→21:10)
[2022-06-10] MEDS: PANTOPRAZOLE 20 MG TABLET (PROTONIX) PO SCH (08:23)
[2022-06-10] MEDS: GLIMEPIRIDE 2 MG (AMARYL) TAB PO SCH ×2 (08:23→21:11)
[2022-06-10] MEDS: DOCUSATE SODIUM 100 MG (COLACE) CAP PO SCH ×2 (08:23→21:11)
[2022-06-10] MEDS: polyethylene glycoL POWDER 17 GM (MIRALAX) PACK PO SCH ×2 (09:11→21:34)
[2022-06-10] MEDS: HYDROCORTISONE 1% CREAM 30 GM TUBE TP SCH ×3 (09:21→21:13)
--- NOTE | 2022-06-10 09:44 | Occupational Ther Daily Note ---
OT Current Status-Daily Note Subjective Pt alert, sitting in recliner. Pt agrees to therapy. No c/o pain. Mental Status/Objective Patient Orientation: Person, Place, Time, Situation Attachments: IV (midline) ADL-Treatment Pt declines shower, agrees to sponge bath. Pt sat at sink to complete sponge bath with bath packs, SBA while in standing. SBA for toilet transfer. Min A for balance while manipulating lower body clothing, CGA for toilet transfer. Set up for upper body dressing. Min A for balance while hiking pants over hips, set up for threading feet through pant legs. Set up for footwear. Therapy Code Descriptions/Definitions Functional [place] Measure: 0=Not Assessed/NA 4=Minimal Assistance 1=Total Assistance 5=Supervision or Setup 2=Maximal Assistance 6=Modified [place] 3=Moderate Assistance 7=Complete IndependenceSCALE: Activities may be completed with or without assistive devices. 7-Ceskgjdjni-xguehhe completes the activity by him/herself with no assistance from a helper. 5-Set-up or Clean-up Assistance-helper sets up or cleans up; patient completes activity. [place] assists only prior to or following the activity. 4-Supervision or Touching Assistance-helper provides verbal cues and/or touching/steadying and/or contact guard assistance as patient completes activity. Assistance may be provided throughout the activity or intermittently. 3-Partial/Moderate Assistance-helper does LESS THAN HALF the effort. [place] lifts, holds or supports trunk or limbs, but provides less than half the effort. 2-Substantial/Maximal Assistance-helper does MORE THAN HALF the effort. [place] lifts or holds trunk or limbs and provides more than half the effort. 2-Wjcanqmfx-pvbbyg does ALL the effort. Patient does none of the effort to complete the activity. Or, the assistance of 2 or more helpers is required for the patient to complete the activity. If activity was not attempted, code reason: 7-Patient Refused. 9-Not Applicable-not attempted and the patient did not perform the activity before the current illness, exacerbation or injury. 10-Not Attempted due to Environmental Limitations-(lack of equipment, weather restraints, etc.). 88-Not Attempted due to Medical Conditions or Safety Concerns. Oral Hygiene (QC): 4 (Standing at sink, pt required SBA for safety due to LOB.) Upper Body Dressing (QC): 5 Lower Body Dressing (QC): 3 On/Off Footwear: 5 Toileting Hygiene (QC): 3 Toilet Transfer (QC): 4 Other Treatment Pt given light resistance theraband and HEP for use in room to strengthen B UE to complete daily functional tasks. 2 sets 10 reps 4 exercises each, tolerated well. After session, pt sitting in recliner with call light/phone in reach. A ll needs met in room. OT Short Term Goals Short Term Goals Time Frame: Jun 10, 2022 Eatin Oral hygiene: 5 Toileting hygiene: 5 Shower/bathe self: 5 Upper body dressin Lower body dressin Putting on/taking off footwear: 5 OT Mcc Goals Mill Attendant Goals Time Frame: Jun 16, 2022 Acute change in mental status: 0 Inattention: 0 Disorganized thinkin Altered level of consciousness: 0 Eating (QC): 6 Oral Hygiene (QC): 6 Toileting Hygiene (QC): 6 Shower/Bathe Self (QC): 6 Upper Body Dressing (QC): 6 Lower Body Dressing (QC): 6 On/Off Footwear (QC): 6 Additional Goals: 1-Demonstrate ADL Tasks, 2-Verbalize Understanding, 3-Imp roveStrength/Segun 1=Demonstrate adherence to instructed precautions during ADL tasks. 2=Patient will verbalize/demonstrate understanding of assistive devices/modifications for ADL. 3=Patient will improve strength/tolerance for activity to enable patient to perform ADL's. OT Education/Plan Problem List/Assessment Assessment: Decreased UE Strength, Impaired Funct Balance, Impaired Self-Care Skills Discharge Recommendations Plan/Recommendations: Continue POC Treatment Plan/Plan of Care Patient would benefit from OT for education, treatment and training to promote independence in ADL's, mobility, safety and/or upper extremity function for ADL's. Plan of Care: ADL Retraining, Functional Mobility, Group Exercise/Act as Ind, Orthotic Fitting/Training, UE Funct Exercise/Act, UE Neuromus Re-Ed/Coord Treatment Duration: Jun 16, 2022 Frequency: At least 5 of 7 days/Wk (IRF) Estimated Hrs Per Day: 1.5 hours per day (75-90 min/day ) Agreement: Yes Rehab Potential: Fair Time Start Time: 08:45 Stop Time: 09:45 DATE: Jun 10, 2022 Total Time Billed (hr/min): 60 Billed Treatment Time 1 visit-ADL 3 (50 min) EX 1 (10 min) VIVIANA IBARRA Jun 10, 2022 09:44
--- NOTE | 2022-06-10 11:18 | Physical Therapy Daily Note ---
PT Daily Note-Current Subjective States that she is doing okay. Pain Numeric Pain Scale: 0-No Pain Section J - Health Conditions 1. Rarely or not at all 2. Occasionally 3. Frequently 4. Almost constantly 8. Unable to answer Pain Effect on Sleep: 1 Pain Interference with Therapy: 1 Pain Interference w/Day-to-Day: 1 Transfers SCALE: Activities may be completed with or without assistive devices. 6-Nkrkbzfusm-vrlssmr completes the activity by him/herself with no assistance from a helper. 5-Set-up or Clean-up Assistance-helper sets up or cleans up; patient completes activity. [place] assists only prior to or following the activity. 4-Supervision or Touching Assistance-helper provides verbal cues and/or seymour nathan/steadying and/or contact guard assistance as patient completes activity. Assistance may be provided throughout the activity or intermittently. 3-Partial/Moderate Assistance-helper does LESS THAN HALF the effort. [place] lifts, holds or supports trunk or limbs, but provides less than half the effort. 2-Substantial/Maximal Assistance-helper does MORE THAN HALF the effort. [place] lifts or holds trunk or limbs and provides more than half the effort. 3-Wjndxntbn-lhbhsa does ALL the effort. Patient does none of the effort to complete the activity. Or, the assistance of 2 or more helpers is required for the patient to complete the activity. If activity was not attempted, code reason: 7-Patient Refused. 9-Not Applicable-not attempted and the patient did not perform the activity before the current illness, exacerbation or injury. 10-Not Attempted due to Environmental Limitations-(lack of equipment, weather restraints, etc.). 88-Not Attempted due to Medical Conditions or Safety Concerns. Sit to Stand (QC): 5 Toilet Transfer (QC): 5 Weight Bearing Right Lower Extremity: Right Weight Bearing/Tolerated Heel Weight bearing only. Patient has a orthopedic shoe to decrease forefoot wt. Bearing, however wilner reports it is at home. Gait Training Does the Patient Walk?: Yes Distance: 500'. 200', 150' Walk 10 feet (QC): 5 Walk 50 ft with 2 Turns(QC): 5 Walk 150 ft (QC): 5 Gait Persons Needed: 1 Gait Assistive Device: FWW Exercises Seated Therapy Exercises: LE Protocol Seated Reps: [address] Ex=Flex, Abd, Ext, Marching, Sit to Stand NuStep Minutes: 15 NuStep Workload: 1 Assessment Current Status: Excellent Progress Patient did well with all activities however she does have balance limitations secondary to (B) LE neuropathy. PT Senior Living Goals Senior Living Goals PT Matrix Plater Goals Time Frame: Jun 19, 2022 Roll Left & Right (QC): 6 Sit to Lying (QC): 6 Lying-Sitting on Side/Bed(QC): 6 Sit to Stand (QC): 6 Chair/Ipc-pc-Gukix Xfer(QC): 6 Toilet Transfer (QC): 6 Car Transfer (QC): 6 Does the Patient Walk: Yes Walk 10 feet (QC): 6 Walk 50ft with 2 Turns (QC): 6 Walk 150 ft (QC): 6 Walking 10ft on Uneven Surface: 6 1 Step (curb) (QC): 6 4 Steps (QC): 4 12 Steps (QC): 4 Picking up an Object (QC): 6 Does the Pt use WC or Scooter?: No Wheel 50 feet with 2 turns (QC: 9 Wheel 150 feet: 9 PT Plan Treatment/Plan Treatment Plan: Continue Plan of Care Treatment Plan: Bed Mobility, Education, Functional Activity Segun, Functional Strength, Group Therapy, Gait, Safety, Therapeutic Exercise, Transfers Treatment Duration: Jul 17, 2022 Frequency: At least 5 of 7 days/Wk (IRF) Estimated Hrs Per Day: 1.5 hours per day Patient and/or Family Agrees t: Yes Time Time In: 1000 Time Out: 1100 DATE: Jun 10, 2022 Total Billed Treatment Time: 60 Total Billed Treatment 1, 30' ther-ex, 15' gait, 15' NM RIVAS COHEN PT Jun 10, 2022 11:18
--- NOTE | 2022-06-10 11:58 | CONSULTATION REPORT ---
DATE OF SERVICE: 06/10/2022 ATTENDING PHYSICIAN: Ami Lopez DO SUMMARY: An 82-year-old white lady who recently had a CVA, but there is no sensory or motor losses. Complaining of increased urinary incontinence. She started that 2-3 month ago at home and was using diapers. Her incontinence is mixed, more urgency than stress, question ISD. She has not tried any treatment for that. She has no other complaint. Her H and P was reviewed. IMPRESSION: 1. Urinary incontinence of the mixed type, possible ISD. 2. Overactive bladder. PLAN: We will first check a postvoid residual on her today and manage accordingly. The plan was fully explained to the patient. Job ID: [id number] DocumentID: [id number] Dictated Date: 06/10/2022 11:14:09 Stencil Sprayer Date: 06/10/2022 11:56:00 Dictated By: NEIL GORDON MD
--- NOTE | 2022-06-10 12:32 | Therapy Group Daily Note ---
Therapy Daily Group Note Patient Education Topic Other List Below (Food safety/Nutrition) Exercises Fine Motor, UE Exercise Session Ratio (pt:therapist): 2:7 Goal of Session: UE/LE Strengthing, Other (list) (Nutrition/ Food safety) Goal Met for this Session: Yes Pt Benefit of Group: Contributions to Others, F/U Use of Strategies @Home, Increased Functional Safety, Increased Functional Strength, Improved Cognition, Recognition of Peers, Socialization Other/Notes Pt ambulated using FWW with CGA to [facility] for OT/PT group. Group consisted of introductions (name,place living), fine motor coordination tasks with B UE strengthening against gravity, safe transfers to/from table, educational topics on nutrition and food safety. Pt introduced self appropriately and actively listened to peers. Pt verbalized own experiences and strategies for educational topics. Tolerated all activities well. After session, pt lying in bed with call light/phone in reach. All needs met in room. Start Time: 11:00 Stop Time: 12:15 Total Billed Treatment Time: 75 Total Billed Treatment 1-[facility] VIVIANA IBARRA Jun 10, 2022 12:32
[2022-06-10 19:32] VITALS: BP 125/58
[2022-06-10 19:41] VITALS: BP 125/58
[2022-06-10] MEDS: TOLTERODINE LA 2 MG (DETROL LA) CAP PO SCH (21:09)
[2022-06-10] MEDS: PRAMIPEXOLE 0.125 MG (MIRAPEX) TABLET PO SCH (21:10)
[2022-06-10] MEDS: MONTELUKAST 10 MG (SINGULAIR) TAB PO SCH (21:10)
[2022-06-10] MEDS: LORATADINE (CLARITIN) 10 MG TAB PO SCH (21:11)
[2022-06-11] MEDS: inSUlin ASPART (NovoLOG) 1 UNIT/0.01 ML (CHARGE PER UNIT) SC SCH ×4 (05:43→21:38)
[2022-06-11] MEDS: CATHETER FLUSH 10 ML SYR IVP SCH ×3 (06:05→21:37)
[2022-06-11] MEDS: MULTIVIT W/MINERALS TAB (THERAGRAN M) PO SCH (06:06)
--- NOTE | 2022-06-11 06:08 | PM&R Progress Note ---
Subjective HPI/CC On Admission Date Seen by Provider: Jun 11, 2022 Time Seen by Provider: 11:30 Subjective/Events-last exam 06/11/2022: Patient doing well Son in law is at bedside Hypoglycemia noted so adjusted OHA 06/10/2022: Doing well DC Lovenox due to abdominal wall hematoma on right side just after 1 dose of Lovenox Monitoring closely Sugars are ok 06/09/2022: No major issues Questioning about Lovenox I added Walking a lot better No pain reported 06/08/2022: No major issues Incontinence noted and will start bladder training AL at DC for patient and her 06/07/2022: Patient doing well No major issues Blood sugars reviewed No falls No pain 06/06/2022: Doing well Improved sugars No pain reported Weakness noted 06/05/2022: Doing well Settling in well No expressive aphasia noted Overall weak BM+ Increased sugar so will start home dose of Glimepride Review of Systems General: Fatigue, Malaise Neurological: Weakness, Incoordination Objective Exam Vital Signs Vital Signs Date Time Temp Pulse Resp B/P (MAP) Pulse Ox O2 Delivery O2 Flow Rate FiO2 06/11/22 09:13 Room Air 06/11/22 07:56 36.4 97 18 147/73 (97) 95 Capillary Refill : General Appearance: No Apparent Distress, WD/WN, Anxious, Chronically ill, Thin HEENT: PERRL/EOMI, Normal ENT Inspection, Pharynx Normal Neck: Full Range of Motion, Normal Inspection, Non Tender, Supple, Carotid Bru it Respiratory: Chest Non Tender, Lungs Clear, Normal Breath Sounds, No Accessory Muscle Use, No Respiratory Distress Cardiovascular: Regular Rate, Rhythm, No Edema, No Gallop, No JVD, No Murmur, Normal Peripheral Pulses Gastrointestinal: Normal Bowel Sounds, No Organomegaly, No Pulsatile Mass, Non Tender, Soft Back: Normal Inspection, No CVA Tenderness, No Vertebral Tenderness Extremity: Normal Capillary Refill, Normal Inspection, Normal Range of Motion, Non Tender, No Calf Tenderness, No Pedal Edema Neurologic/Psychiatric: Alert, Oriented x3, Normal Mood/Affect, recoating machine operator II-XII Norm as Tested, Abnormal Gait, Motor Weakness (Generalized) Skin: Normal Color, Warm/Dry Lymphatic: No Adenopathy Results/Procedures Lab Patient resulted labs reviewed. FIM Transfers Therapy Code Descriptions/Definitions Functional [place] Measure: 0=Not Assessed/NA 4=Minimal Assistance 1=Total Assistance 5=Supervision or Setup 2=Maximal Assistance 6=Modified [place] 3=Moderate Assistance 7=Complete IndependenceSCALE: Activities may be completed with or without assistive devices. 6-Qjeejlugjj-lycknlx completes the activity by him/herself with no assistance from a helper. 5-Set-up or Clean-up Assistance-helper sets up or cleans up; patient completes activity. [place] assists only prior to or following the activity. 4-Supervision or Touching Assistance-helper provides verbal cues and/or touching/steadying and/or contact guard assistance as patient completes activity. Assistance may be provided throughout the activity or intermittently. 3-Partial/Moderate Assistance-helper does LESS THAN HALF the effort. [place] lifts, holds or supports trunk or limbs, but provides less than half the effort. 2-Substantial/Maximal Assistance-helper does MORE THAN HALF the effort. [place] lifts or holds trunk or limbs and provides more than half the effort. 3-Yiyalmxjw-fsapbm does ALL the effort. Patient does none of the effort to complete the activity. Or, the assistance of 2 or more helpers is required for the patient to complete the activity. If activity was not attempted, code reason: 7-Patient Refused. 9-Not Applicable-not attempted and the patient did not perform the activity before the current illness, exacerbation or injury. 10-Not Attempted due to Environmental Limitations-(lack of equipment, weather restraints, etc.). 88-Not Attempted due to Medical Conditions or Safety Concerns. Roll Left to Right (QC): 6 Sit to Lying (QC): 6 Sit to Stand (QC): 5 Chair/Quz-is-Pjeqw Xfer(QC): 4 Car Transfer (QC): 3 Gait Training Does the Patient Walk?: Yes Distance: 500'. 200', 150' Walk 10 feet (QC): 5 Walk 50 ft with 2 Turns(QC): 5 Walk 150 ft (QC): 5 Walking 10ft/uneven surface-QC: 3 Gait Persons Needed: 1 Gait Assistive Device: FWW Wheelchair Training Does the Pt Use a Wheelchair?: No Distance: 0 Wheel 50 ft with 2 turns (QC): 9 Wheel 150 ft (QC): 9 Stair Training #of Steps: 12 1 Step (curb) (QC): 3 4 Steps (QC): 3 12 Steps (QC): 3 Balance Picking up an Object (QC): 3 ADL-Treatment Eating (QC): 6 Oral Hygiene (QC): 4 (Standing at sink, pt required SBA for safety due to LOB.) Shower/Bathe Self (QC): 7 Upper Body Dressing (QC): 5 Lower Body Dressing (QC): 3 On/Off Footwear (QC): 5 Toileting Hygiene (QC): 3 Toilet Transfer (QC): 4 Assessment/Plan Assessment and Plan Assess & Plan/Chief Complaint Assessment: Acute ischemic stroke 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 Pacemaker Diabetes Recent type II NSTEMI Hypertension Hyperlipidemia Neuropathy GERD Chronic coccygeal pain Anxiety Elevated liver enzymes will hold statin and Zetia on 06/08/2022 Plan: Home meds Blood sugar checks Supportive care Aggressive rehab 06/05/2022: Restart OHA 06/06/2022: Monitor sugars 06/07/2022: Supportive care Continue monitoring blood sugars Hold statin and Zetia 06/08/2022: Supportive care 06/09/2022: Lovenox for DVT PPx 06/10/2022: DC Lovenox due to hematoma abdominal wall 06/11/2022: Decrease OHA (1) Acute ischemic stroke (2) TIA (transient ischemic attack) (3) Expressive aphasia (4) NSTEMI (non-ST elevated myocardial infarction) (5) Pacemaker (6) Hypertension (7) Amputation of toe of right foot (8) Uncontrolled diabetes mellitus Status: Acute RAJESH LATIF DO Jun 11, 2022 06:08
[2022-06-11] MEDS: FLUTICASONE NASAL SPRAY (FLONASE) 16 GM BTL NS SCH (06:55)
[2022-06-11 07:56] VITALS: BP 147/73
[2022-06-11] MEDS: SIMETHICONE 80 MG (MYLICON) CHEW PO SCH ×4 (08:13→21:36)
[2022-06-11] MEDS: ASPIRIN 81 MG CHEW (CHILDREN'S ASA) PO SCH (08:13)
[2022-06-11] MEDS: CLOPIDOGREL 75 MG (PLAVIX) TABLET PO SCH (08:13)
[2022-06-11] MEDS: GABAPENTIN 300 MG (NEURONTIN) CAP PO SCH ×3 (08:13→21:32)
[2022-06-11] MEDS: VITAMIN D3 25 MCG (1,000 UNITS) TABLET PO SCH (08:13)
[2022-06-11] MEDS: MAGNESIUM OXIDE (MAG-OX)400 MG TAB PO SCH ×2 (08:13→18:05)
[2022-06-11] MEDS: lisINopril 40 MG (PRINIVIL) TABLET PO SCH (08:13)
[2022-06-11] MEDS: PANTOPRAZOLE 20 MG TABLET (PROTONIX) PO SCH (08:13)
[2022-06-11] MEDS: SENNA W/DOCUSATE (SENOKOT S) TABLET PO SCH ×2 (08:17→21:38)
[2022-06-11] MEDS: DOCUSATE SODIUM 100 MG (COLACE) CAP PO SCH ×2 (08:17→21:38)
[2022-06-11] MEDS: polyethylene glycoL POWDER 17 GM (MIRALAX) PACK PO SCH ×2 (08:17→21:38)
--- NOTE | 2022-06-11 09:19 | Physical Therapy Daily Note ---
PT Daily Note-Current Subjective Pt in bathroom, with call light on upon arrival to room. Agreeable to PT treatment at this time. She denies any pain currently. Pain Section J - Health Conditions 1. Rarely or not at all 2. Occasionally 3. Frequently 4. Almost constantly 8. Unable to answer Pain Effect on Sleep: 1 Pain Interference with Therapy: 1 Pain Interference w/Day-to-Day: 1 Appearance Following session, pt seated in recliner chair, with call light, phone and tray table within reach. All needs met at this time. Mental Status Patient Orientation: Person, Place, Situation Transfers SCALE: Activities may be completed with or without assistive devices. 4-Ozxksktylh-ereqhcf completes the activity by him/herself with no assistance from a helper. 5-Set-up or Clean-up Assistance-helper sets up or cleans up; patient completes activity. [place] assists only prior to or following the activity. 4-Supervision or Touching Assistance-helper provides verbal cues and/or touching/steadying and/or contact guard assistance as patient completes activity. Assistance may be provided throughout the activity or intermittently. 3-Partial/Moderate Assistance-helper does LESS THAN HALF the effort. [place] lifts, holds or supports trunk or limbs, but provides less than half the effort. 2-Substantial/Maximal Assistance-helper does MORE THAN HALF the effort. [place] lifts or holds trunk or limbs and provides more than half the effort. 3-Wuicgtkjx-fnonqb does ALL the effort. Patient does none of the effort to complete the activity. Or, the assistance of 2 or more helpers is required for the patient to complete the activity. If activity was not attempted, code reason: 7-Patient Refused. 9-Not Applicable-not attempted and the patient did not perform the activity before the current illness, exacerbation or injury. 10-Not Attempted due to Environmental Limitations-(lack of equipment, weather restraints, etc.). 88-Not Attempted due to Medical Conditions or Safety Concerns. Sit to Stand (QC): 4 Toilet Transfer (QC): 4 SBA for safety. Weight Bearing Right Lower Extremity: Right Weight Bearing/Tolerated Heel Weight bearing only. Patient has a orthopedic shoe to decrease forefoot wt. Bearing, however stepson reports it is at home. Gait Training Distance: 500 ft x 2; 300 ft x 1 Walk 10 feet (QC): 4 Walk 50 ft with 2 Turns(QC): 4 Walk 150 ft (QC): 4 Gait Assistive Device: Walker 4 Wheeled SBA for safety. Pt fatigues quickly, and demonstrates steppage gait with fatigue Stair Training Stair Training: Handrails/: 2 handrails #of Steps: 4 4 Steps (QC): 4 Stairs: Pattern: Step to Exercises Standing: Sit to Stand (10) NuStep Minutes: 15 NuStep Workload: 5 Treatments Pt up in the BR upon arrival to room, able to complete haily-care (I). Pt then brushes teeth and hair at sink (I). Pt then returns to chair to (I) hector shoes to ambulate to gym to complete Nu-Step, steps and gait. Pt then returned to room Assessment Current Status: Good Progress Pt tolerated above well, fatigues fairly quickly; however, making progress each session. PT Identification Technician Goals Mcc Goals PT Identification Technician Goals Time Frame: Jun 19, 2022 Roll Left & Right (QC): 6 Sit to Lying (QC): 6 Lying-Sitting on Side/Bed(QC): 6 Sit to Stand (QC): 6 Chair/Jsb-kv-Rbyef Xfer(QC): 6 Toilet Transfer (QC): 6 Car Transfer (QC): 6 Does the Patient Walk: Yes Walk 10 feet (QC): 6 Walk 50ft with 2 Turns (QC): 6 Walk 150 ft (QC): 6 Walking 10ft on Uneven Surface: 6 1 Step (curb) (QC): 6 4 Steps (QC): 4 12 Steps (QC): 4 Picking up an Object (QC): 6 Does the Pt use WC or Scooter?: No Wheel 50 feet with 2 turns (QC: 9 Wheel 150 feet: 9 PT Plan Problem List Problem List: Activity Tolerance, Functional Strength, Safety, Balance, Gait, Transfer, Bed Mobility, ROM Treatment/Plan Treatment Plan: Continue Plan of Care Treatment Plan: Bed Mobility, Education, Functional Activity Segun, Functional Strength, Group Therapy, Gait, Safety, Therapeutic Exercise, Transfers Treatment Duration: Jul 17, 2022 Frequency: At least 5 of 7 days/Wk (IRF) Estimated Hrs Per Day: 1.5 hours per day Patient and/or Family Agrees t: Yes Time Time In: 755 Time Out: 910 DATE: Jun 11, 2022 Total Billed Treatment Time: 75 Total Billed Treatment 1 visit EX (30') GT (30') FA (15') ELIGIO RODRIGUES PT Jun 11, 2022 09:19
[2022-06-11] MEDS: HYDROCORTISONE 1% CREAM 30 GM TUBE TP SCH ×3 (10:31→21:37)
[2022-06-11] MEDS: GLIMEPIRIDE 2 MG (AMARYL) TAB PO SCH (10:32)
[2022-06-11] MEDS: metFORMIN 500 MG (GLUCOPHAGE) TAB PO SCH ×2 (10:32→17:58)
--- NOTE | 2022-06-11 10:44 | Occupational Ther Daily Note ---
OT Current Status-Daily Note Subjective Pt in recliner, alert. Agrees to therapy. No pain at this time. Mental Status/Objective Patient Orientation: Person, Place, Time, Situation ADL-Treatment Pt declines shower. Reports she would like to shower tomorrow. Pt SBA for toilet transfers and hygiene due to safety concerns with balance. Pt SBA to ambulate with FWW. Pt reports oral hygiene completed prior to arrival. Therapy Code Descriptions/Definitions Functional [place] Measure: 0=Not Assessed/NA 4=Minimal Assistance 1=Total Assistance 5=Supervision or Setup 2=Maximal Assistance 6=Modified [place] 3=Moderate Assistance 7=Complete IndependenceSCALE: Activities may be completed with or without assistive devices. 5-Uemwughhpb-jgqpeds completes the activity by him/herself with no assistance from a helper. 5-Set-up or Clean-up Assistance-helper sets up or cleans up; patient completes activity. [place] assists only prior to or following the activity. 4-Supervision or Touching Assistance-helper provides verbal cues and/or touching/steadying and/or contact guard assistance as patient completes activity. Assistance may be provided throughout the activity or intermittently. 3-Partial/Moderate Assistance-helper does LESS THAN HALF the effort. [place] lifts, holds or supports trunk or limbs, but provides less than half the effort. 2-Substantial/Maximal Assistance-helper does MORE THAN HALF the effort. [place] lifts or holds trunk or limbs and provides more than half the effort. 2-Zacttwhov-cviuze does ALL the effort. Patient does none of the effort to complete the activity. Or, the assistance of 2 or more helpers is required for the patient to complete the activity. If activity was not attempted, code reason: 7-Patient Refused. 9-Not Applicable-not attempted and the patient did not perform the activity before the current illness, exacerbation or injury. 10-Not Attempted due to Environmental Limitations-(lack of equipment, weather restraints, etc.). 88-Not Attempted due to Medical Conditions or Safety Concerns. Eating (QC): 6 Toileting Hygiene (QC): 4 Toilet Transfer (QC): 4 Other Treatment Pt participated in 5 minutes reps of forward and backwards arm bike rotations with no resistance due to increased pain in L UE. Pt completed resistant UE activities following patterns while standing for ~2-3 mins before resting. Pt participated in sequencing FM activities while standing for ~2-3 minutes at a time before resting. Pt completed UE exercises in reps of 15 with the dowel and 2 lb weight added. All exercises were performed to increase UE strength, dynamic standing balance/endurance and cognition, all necessary for mobility and self care skills. Skilled demonstration was provided for proper technique and positioning. When pt was participating in cognitive exercises with pen and paper she became overwhelmed and anxious and asked to stop the activity. Pt reports she started to feel this way when completing her bills just prior to the stroke. She continues to display decreased memory and processing skills with cognitive activities. Pt in recliner at end of session. Phone/call light in reach. All needs met in room. OT Short Term Goals Short Term Goals Time Frame: Jun 10, 2022 Eatin Oral hygiene: 5 Toileting hygiene: 5 Shower/bathe self: 5 Upper body dressin Lower body dressin Putting on/taking off footwear: 5 OT Prison Goals Prison Goals Time Frame: Jun 16, 2022 Acute change in mental status: 0 Inattention: 0 Disorganized thinkin Altered level of consciousness: 0 Eating (QC): 6 Oral Hygiene (QC): 6 Toileting Hygiene (QC): 6 Shower/Bathe Self (QC): 6 Upper Body Dressing (QC): 6 Lower Body Dressing (QC): 6 On/Off Footwear (QC): 6 Additional Goals: 1-Demonstrate ADL Tasks, 2-Verbalize Understanding, 3- ImproveStrength/Segun 1=Demonstrate adherence to instructed precautions during ADL tasks. 2=Patient will verbalize/demonstrate understanding of assistive dev ices/modifications for ADL. 3=Patient will improve strength/tolerance for activity to enable patient to perform ADL's. OT Education/Plan Problem List/Assessment Assessment: Decreased Activ Tolerance, Decreased Safety Aware, Impaired Cognition, Impaired Funct Balance, Impaired I ADL's, Impaired Self-Care Skills Discharge Recommendations Plan/Recommendations: Continue POC Treatment Plan/Plan of Care Patient would benefit from OT for education, treatment and training to promote independence in ADL's, mobility, safety and/or upper extremity function for ADL's. Plan of Care: ADL Retraining, Functional Mobility, Group Exercise/Act as Ind, Orthotic Fitting/Training, UE Funct Exercise/Act, UE Neuromus Re-Ed/Coord Treatment Duration: Jun 16, 2022 Frequency: At least 5 of 7 days/Wk (IRF) Estimated Hrs Per Day: 1.5 hours per day (75-90 min/day ) Agreement: Yes Rehab Potential: Fair Time Start Time: 09:15 Stop Time: 10:30 DATE: Jun 11, 2022 Total Time Billed (hr/min): 75 Billed Treatment Time 1 visit ADL 1 (15 min) EX 4 (60 min) VIVIANA IBARRA Jun 11, 2022 10:44
--- NOTE | 2022-06-11 11:16 | Speech Therapy Daily Note ---
Speech Daily Progress Note Subjective Date Seen by Provider: Jun 11, 2022 Time Seen by Provider: 10:37 The patient was seated upright in her recliner, awake and alert, upon entrance to her room by the clinician. The patient greeted the clinician appropriately and was agreeable to participation in the cognitive linguistic treatment session. Objective The patient and clinician discussed, reviewed, and introduced appropriate internal and external memory strategies. The patient stated she has a calendar she keeps available in her "study" which she reviews daily. The patient records upcoming appointments on the calendar, as well as, important information to recall. The patient denied the use of alarms, timers, or pill boxes. Per patient, she attempts a daily routine to aid in her functional memory, however, the routine is frequently interrupted by the needs of her (the patient is the caregiver for her at this time). The clinician and patient brainstormed opportunities to incorporate a routine and schedule upon discharge. Functional memory strategies were discussed and practiced on this date. The strategies most frequently practiced were description and additional time. The patient did not display word-finding errors throughout structured or spontaneous speech tasks on this date. The patient was able to recall three associated words following a five minute delay, independently. The patient stated she feels her urinary incontinence is improving, as she is currently following "some kind of schedule where they come in every two hours." The clinician encouraged increased independence with the schedule, recommending the patient set an alarm or timer as discussed with the external memory strategies. At this time, the patient stated, "Oh, I'm not going to set one of those, I never know how to get them off." The clinician will work with the patient in upcoming treatment sessions to better learn timer and/or alarm functions on her smart phone which may allow for increased independence with the bladder schedule. Assessment Assessment Current Status: Good Progress Treatment Plan Continue Plan of Care Speech Short Term Goals Short Term Goals Short Term Goals 1. The patient will display 80% accuracy with structured word-finding exercises, independently. 2. The patient will demonstrate word-finding strategies with 80% accuracy, independently. Speech Alf Goals Milk Wagon Driver Goals 1. The patient will demonstrate improved word-finding abilities for safe discharge to the least restrictive environment. Time Frame: One Week. Speech-Plan Treatment Plan Speech Therapy Treatment Plan: Continue Plan of Care Treatment Duration: Jun 04, 2022 Frequency: Modified Program (IRF) Estimated Hrs Per Day: .5 hour per day Rehab Potential: Fair Safety Risks/Education Teaching Recipient: Patient Teaching Methods: Demonstration, Handout, Discussion Response to Teaching: Verbalize Understanding, Return Demonstration, Reinforcement Needed Education Topics Provided: Memory Strategies, Word-Finding Strategies Time Speech Therapy Time In: 10:37 Speech Therapy Time Out: 11:07 DATE: Jun 11, 2022 Total Billed Time: 30 Billed Treatment Time 1, MARIANNA LUJAN Jun 11, 2022 11:16
[2022-06-11 20:37] VITALS: BP 133/75
[2022-06-11] MEDS: LORATADINE (CLARITIN) 10 MG TAB PO SCH (21:30)
[2022-06-11] MEDS: MONTELUKAST 10 MG (SINGULAIR) TAB PO SCH (21:30)
[2022-06-11] MEDS: PRAMIPEXOLE 0.125 MG (MIRAPEX) TABLET PO SCH (21:32)
[2022-06-11] MEDS: MELATONIN 3 MG TABLET PO PRN (21:33)
[2022-06-11] MEDS: TOLTERODINE LA 2 MG (DETROL LA) CAP PO SCH (21:35)
--- NOTE | 2022-06-12 06:01 | PM&R Progress Note ---
Subjective HPI/CC On Admission Date Seen by Provider: Jun 12, 2022 Time Seen by Provider: 12:00 Subjective/Events-last exam 06/12/2022: Patient doing a lot better Talked to her about oral hypoglycemic agents and transition insulin Her is on Levemir so she is familiar No other concerns 06/11/2022: Patient doing well Son in law is at bedside Hypoglycemia noted so adjusted OHA 06/10/2022: Doing well DC Lovenox due to abdominal wall hematoma on right side just after 1 dose of Lovenox Monitoring closely Sugars are ok 06/09/2022: No major issues Questioning about Lovenox I added Walking a lot better No pain reported 06/08/2022: No major issues Incontinence noted and will start bladder training AL at DC for patient and her 06/07/2022: Patient doing well No major issues Blood sugars reviewed No falls No pain 06/06/2022: Doing well Improved sugars No pain reported Weakness noted 06/05/2022: Doing well Settling in well No expressive aphasia noted Overall weak BM+ Increased sugar so will start home dose of Glimepride Review of Systems General: Fatigue, Malaise Objective Exam Vital Signs Vital Signs Date Time Temp Pulse Resp B/P (MAP) Pulse Ox O2 Delivery O2 Flow Rate FiO2 06/12/22 09:25 Room Air 06/12/22 07:30 36.3 69 16 150/75 (100) 97 Capillary Refill : General Appearance: No Apparent Distress, WD/WN, Anxious, Chronically ill, Thin HEENT: PERRL/EOMI, Normal ENT Inspection, Pharynx Normal Neck: Full Range of Motion, Normal Inspection, Non Tender, Supple, Carotid Bruit Respiratory: Chest Non Tender, Lungs Clear, Normal Breath Sounds, No Accessory Muscle Use, No Respiratory Distress Cardiovascular: Regular Rate, Rhythm, No Edema, No Gallop, No JVD, No Murmur, Normal Peripheral Pulses Gastrointestinal: Normal Bowel Sounds, No Organomegaly, No Pulsatile Mass, Non Tender, Soft Back: Normal Inspection, No CVA Tenderness, No Vertebral Tenderness Extremity: Normal Capillary Refill, Normal Inspection, Normal Range of Motion, Non Tender, No Calf Tenderness, No Pedal Edema Neurologic/Psychiatric: Alert, Oriented x3, Normal Mood/Affect, laborer powerhouse II-XII Norm as Tested, Abnormal Gait, Motor Weakness (Generalized) Skin: Normal Color, Warm/Dry Lymphatic: No Adenopathy Results/Procedures Lab Laboratory Tests 06/12/22 06:34 Patient resulted labs reviewed. FIM Transfers Therapy Code Descriptions/Definitions Functional [place] Measure: 0=Not Assessed/NA 4=Minimal Assistance 1=Total Assistance 5=Supervision or Setup 2=Maximal Assistance 6=Modified [place] 3=Moderate Assistance 7=Complete IndependenceSCALE: Activities may be completed with or without assistive devices. 3-Drghruiemb-ojhnwnk completes the activity by him/herself with no assistance from a helper. 5-Set-up or Clean-up Assistance-helper sets up or cleans up; patient completes activity. [place] assists only prior to or following the activity. 4-Supervision or Touching Assistance-helper provides verbal cues and/or touching/steadying and/or contact guard assistance as patient completes activity. Assistance may be provided throughout the activity or intermittently. 3-Partial/Moderate Assistance-helper does LESS THAN HALF the effort. [place] lifts, holds or supports trunk or limbs, but provides less than half the effort. 2-Substantial/Maximal Assistance-helper does MORE THAN HALF the effort. [place] lifts or holds trunk or limbs and provides more than half the effort. 7-Obyhgbwsd-sfkpbx does ALL the effort. Patient does none of the effort to complete the activity. Or, the assistance of 2 or more helpers is required for the patient to complete the activity. If activity was not attempted, code reason: 7-Patient Refused. 9-Not Applicable-not attempted and the patient did not perform the activity before the current illness, exacerbation or injury. 10-Not Attempted due to Environmental Limitations-(lack of equipment, weather restraints, etc.). 88-Not Attempted due to Medical Conditions or Safety Concerns. Roll Left to Right (QC): 6 Sit to Lying (QC): 6 Sit to Stand (QC): 4 Chair/Mzt-ys-Orqzx Xfer(QC): 4 Car Transfer (QC): 3 Gait Training Does the Patient Walk?: Yes Distance: 500 ft x 2; 300 ft x 1 Walk 10 feet (QC): 4 Walk 50 ft with 2 Turns(QC): 4 Walk 150 ft (QC): 4 Walking 10ft/uneven surface-QC: 3 Gait Persons Needed: 1 Gait Assistive Device: Walker 4 Wheeled Wheelchair Training Does the Pt Use a Wheelchair?: No Distance: 0 Wheel 50 ft with 2 turns (QC): 9 Wheel 150 ft (QC): 9 Stair Training Stair Training: Handrails/: 2 handrails #of Steps: 4 1 Step (curb) (QC): 3 4 Steps (QC): 4 12 Steps (QC): 3 Stairs: Pattern: Step to Balance Picking up an Object (QC): 3 ADL-Treatment Eating (QC): 6 Oral Hygiene (QC): 4 (Standing at sink, pt required SBA for safety due to LOB.) Shower/Bathe Self (QC): 7 Upper Body Dressing (QC): 5 Lower Body Dressing (QC): 3 On/Off Footwear (QC): 5 Toileting Hygiene (QC): 4 Toilet Transfer (QC): 4 Assessment/Plan Assessment and Plan Assess & Plan/Chief Complaint Assessment: Acute ischemic stroke 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 Pacemaker Diabetes Recent type II NSTEMI Hypertension Hyperlipidemia Neuropathy GERD Chronic coccygeal pain Anxiety Elevated liver enzymes will hold statin and Zetia on 06/08/2022 Plan: Home meds Blood sugar checks Supportive care Aggressive rehab 06/05/2022: Restart OHA 06/06/2022: Monitor sugars 06/07/2022: Supportive care Continue monitoring blood sugars Hold statin and Zetia 06/08/2022: Supportive care 06/09/2022: Lovenox for DVT PPx 06/10/2022: DC Lovenox due to hematoma abdominal wall 06/11/2022: Decrease OHA 06/12/2022: Stop OHA Start insulin (1) Acute ischemic stroke (2) TIA (transient ischemic attack) (3) Expressive aphasia (4) NSTEMI (non-ST elevated myocardial infarction) (5) Pacemaker (6) Hypertension (7) Amputation of toe of right foot (8) Uncontrolled diabetes mellitus Status: Acute RAJESH LATIF DO Jun 12, 2022 06:01
[2022-06-12 06:40] LABS: BASOPHILS # (AUTO) 0.1 10^3/uL (0.0-0.1); BASOPHILS % (AUTO) 1 % (0-10); EOSINOPHILS # (AUTO) 0.3 10^3/uL (0.0-0.3); EOSINOPHILS % (AUTO) 6 % (0-10); HEMATOCRIT 35 % (35-52); HEMOGLOBIN 10.9 g/dL (11.5-16.0); LYMPHOCYTES # (AUTO) 1.4 10^3/uL (1.0-4.0); LYMPHOCYTES % (AUTO) 26 % (12-44); MEAN CORPUSCULAR HEMOGLOBIN 26 pg (25-34); MEAN CORPUSCULAR HGB CONC 32 g/dL (32-36); MEAN CORPUSCULAR VOLUME 84 fL (80-99); MEAN PLATELET VOLUME 9.7 fL (9.0-12.2); MONOCYTES # (AUTO) 0.8 10^3/uL (0.0-1.0); MONOCYTES % (AUTO) 14 % (0-12); NEUTROPHILS % (AUTO) 53 % (42-75); PLATELET COUNT 412 10^3/uL (130-400); WHITE BLOOD COUNT 5.6 10^3/uL (4.3-11.0)
[2022-06-12] MEDS: CATHETER FLUSH 10 ML SYR IVP SCH ×3 (06:54→22:07)
[2022-06-12] MEDS: MULTIVIT W/MINERALS TAB (THERAGRAN M) PO SCH (06:54)
[2022-06-12] MEDS: inSUlin ASPART (NovoLOG) 1 UNIT/0.01 ML (CHARGE PER UNIT) SC SCH ×4 (06:54→21:00)
[2022-06-12 06:56] LABS: INR 0.9 (0.8-1.4); PROTHROMBIN TIME PATIENT 12.7 SEC (12.2-14.7)
[2022-06-12] MEDS ORDERED: GLIMEPIRIDE 2 MG (AMARYL) TAB PO SCH ×2 (07:00)
[2022-06-12 07:08] LABS: ALBUMIN 3.3 GM/DL (3.2-4.5); BILIRUBIN,TOTAL 0.2 MG/DL (0.1-1.0); CALCIUM 9.5 MG/DL (8.5-10.1); CREATININE SERUM 0.67 MG/DL (0.60-1.30); POTASSIUM 4.6 MMOL/L (3.6-5.0); TOTAL PROTEIN 6.8 GM/DL (6.4-8.2)
[2022-06-12 07:30] VITALS: BP 150/75
[2022-06-12] MEDS: FLUTICASONE NASAL SPRAY (FLONASE) 16 GM BTL NS SCH (08:36)
[2022-06-12] MEDS: CLOPIDOGREL 75 MG (PLAVIX) TABLET PO SCH (08:37)
[2022-06-12] MEDS: MAGNESIUM OXIDE (MAG-OX)400 MG TAB PO SCH ×2 (08:37→17:43)
[2022-06-12] MEDS: ASPIRIN 81 MG CHEW (CHILDREN'S ASA) PO SCH (08:37)
[2022-06-12] MEDS: VITAMIN D3 25 MCG (1,000 UNITS) TABLET PO SCH (08:37)
[2022-06-12] MEDS: GABAPENTIN 300 MG (NEURONTIN) CAP PO SCH ×3 (08:38→22:06)
[2022-06-12] MEDS: PANTOPRAZOLE 20 MG TABLET (PROTONIX) PO SCH (08:38)
[2022-06-12] MEDS: DOCUSATE SODIUM 100 MG (COLACE) CAP PO SCH ×2 (08:39→22:00)
[2022-06-12] MEDS: polyethylene glycoL POWDER 17 GM (MIRALAX) PACK PO SCH ×2 (08:39→22:00)
[2022-06-12] MEDS: lisINopril 40 MG (PRINIVIL) TABLET PO SCH (08:40)
[2022-06-12] MEDS: SIMETHICONE 80 MG (MYLICON) CHEW PO SCH ×4 (08:41→22:06)
[2022-06-12] MEDS: SENNA W/DOCUSATE (SENOKOT S) TABLET PO SCH ×2 (08:41→22:00)
[2022-06-12] MEDS: HYDROCORTISONE 1% CREAM 30 GM TUBE TP SCH ×3 (10:19→22:07)
--- NOTE | 2022-06-12 12:26 | Progress Note - Urology ---
Progress Note-Urology Progress Notes/Assess & Plan Progress/Assessment & Plan DOING BETTER BURGER. TOLERATES DETROL LA Final Diagnosis INCONTINENCE NEIL GORDON MD Jun 12, 2022 12:26
[2022-06-12] MEDS: metFORMIN 500 MG (GLUCOPHAGE) TAB PO SCH ×2 (12:35→17:43)
[2022-06-12] MEDS ORDERED: inSUlin (REGULAR) HUMAN 1 UNIT/0.01 ML (CHARGE PER UNIT) SC PRN ×2 (13:00→16:00)
--- NOTE | 2022-06-12 13:01 | Physical Therapy Daily Note ---
PT Daily Note-Current Subjective Pt sitting in recliner upon arrival. Pt agrees to PT. Pain Section J - Health Conditions 1. Rarely or not at all 2. Occasionally 3. Frequently 4. Almost constantly 8. Unable to answer Pain Effect on Sleep: 1 Pain Interference with Therapy: 1 Pain Interference w/Day-to-Day: 1 Mental Status Patient Orientation: Person, Place, Situation Transfers SCALE: Activities may be completed with or without assistive devices. 5-Wxxwiqwjko-jkrhnug completes the activity by him/herself with no assistance from a helper. 5-Set-up or Clean-up Assistance-helper sets up or cleans up; patient completes activity. [place] assists only prior to or following the activity. 4-Supervision or Touching Assistance-helper provides verbal cues and/or touching/steadying and/or contact guard assistance as patient completes activity. Assistance may be provided throughout the activity or intermittently. 3-Partial/Moderate Assistance-helper does LESS THAN HALF the effort. [place] lifts, holds or supports trunk or limbs, but provides less than half the effort. 2-Substantial/Maximal Assistance-helper does MORE THAN HALF the effort. [place] lifts or holds trunk or limbs and provides more than half the effort. 3-Ewftpbewj-tyluyi does ALL the effort. Patient does none of the effort to complete the activity. Or, the assistance of 2 or more helpers is required for the patient to complete the activity. If activity was not attempted, code reason: 7-Patient Refused. 9-Not Applicable-not attempted and the patient did not perform the activity before the current illness, exacerbation or injury. 10-Not Attempted due to Environmental Limitations-(lack of equipment, weather restraints, etc.). 88-Not Attempted due to Medical Conditions or Safety Concerns. Sit to Stand (QC): 6 Weight Bearing Right Lower Extremity: Right Weight Bearing/Tolerated Heel Weight bearing only. Patient has a orthopedic shoe to decrease forefoot wt. Bearing, however esauon reports it is at home. Gait Training Does the Patient Walk?: Yes Distance: 500' Walk 10 feet (QC): 6 Walk 50 ft with 2 Turns(QC): 5 Walk 150 ft (QC): 5 Gait Assistive Device: Walker 4 Wheeled Wheelchair Training Does the Pt Use a Wheelchair?: No Treatments TF to standing, declines need for BR. Pt amb. in hallway, taking short RB as needed. Pt returns to room to rest and eat lunch. All needs met, call light in hand. Assessment Current Status: Good Progress Pt is getting safer for TF and ambulation. PT Assisted Goals Assisted Goals PT [employer] Operations Duty Manager Goals Time Frame: Jun 19, 2022 Roll Left & Right (QC): 6 Sit to Lying (QC): 6 Lying-Sitting on Side/Bed(QC): 6 Sit to Stand (QC): 6 Chair/Eli-ii-Ayemn Xfer(QC): 6 Toilet Transfer (QC): 6 Car Transfer (QC): 6 Does the Patient Walk: Yes Walk 10 feet (QC): 6 Walk 50ft with 2 Turns (QC): 6 Walk 150 ft (QC): 6 Walking 10ft on Uneven Surface: 6 1 Step (curb) (QC): 6 4 Steps (QC): 4 12 Steps (QC): 4 Picking up an Object (QC): 6 Does the Pt use WC or Scooter?: No Wheel 50 feet with 2 turns (QC: 9 Wheel 150 feet: 9 PT Plan Problem List Problem List: Activity Tolerance Treatment/Plan Treatment Plan: Continue Plan of Care Treatment Plan: Bed Mobility, Education, Functional Activity Segun, Functional Strength, Group Therapy, Gait, Safety, Therapeutic Exercise, Transfers Treatment Duration: Jul 17, 2022 Frequency: At least 5 of 7 days/Wk (IRF) Estimated Hrs Per Day: 1.5 hours per day Patient and/or Family Agrees t: Yes Safety Risks/Education Patient Education: Gait Training, Correct Positioning Teaching Recipient: Patient Teaching Methods: Discussion Response to Teaching: Verbalize Understanding Time Time In: 1115 Time Out: 1130 DATE: Jun 12, 2022 Total Billed Treatment Time: 15 Total Billed Treatment 1, GT (15m) IRAJ ESCUDERO DEPARTMENT SPECIALIST Jun 12, 2022 13:01
[2022-06-12 19:45] VITALS: BP 124/65
[2022-06-12] MEDS: TOLTERODINE LA 2 MG (DETROL LA) CAP PO SCH (22:05)
[2022-06-12] MEDS: MONTELUKAST 10 MG (SINGULAIR) TAB PO SCH (22:06)
[2022-06-12] MEDS: MELATONIN 3 MG TABLET PO PRN (22:06)
[2022-06-12] MEDS: PRAMIPEXOLE 0.125 MG (MIRAPEX) TABLET PO SCH (22:06)
[2022-06-12] MEDS: LORATADINE (CLARITIN) 10 MG TAB PO SCH (22:06)
[2022-06-13] MEDS: MULTIVIT W/MINERALS TAB (THERAGRAN M) PO SCH (06:14)
[2022-06-13] MEDS: CATHETER FLUSH 10 ML SYR IVP SCH ×3 (06:14→20:50)
--- NOTE | 2022-06-13 06:14 | PM&R Progress Note ---
Subjective HPI/CC On Admission Date Seen by Provider: Jun 13, 2022 Time Seen by Provider: 12:00 Subjective/Events-last exam 06/13/2022: Patient doing much better Blood sugars are 200 so allowed permissive hyperglycemia due to hypoglycemic episodes from oral hypoglycemic agents No other concerns 06/12/2022: Patient doing a lot better Talked to her about oral hypoglycemic agents and transition insulin Her is on Levemir so she is familiar No other concerns 06/11/2022: Patient doing well Son in law is at bedside Hypoglycemia noted so adjusted OHA 06/10/2022: Doing well DC Lovenox due to abdominal wall hematoma on right side just after 1 dose of Lovenox Monitoring closely Sugars are ok 06/09/2022: No major issues Questioning about Lovenox I added Walking a lot better No pain reported 06/08/2022: No major issues Incontinence noted and will start bladder training AL at DC for patient and her 06/07/2022: Patient doing well No major issues Blood sugars reviewed No falls No pain 06/06/2022: Doing well Improved sugars No pain reported Weakness noted 06/05/2022: Doing well Settling in well No expressive aphasia noted Overall weak BM+ Increased sugar so will start home dose of Glimepride Review of Systems General: Fatigue, Malaise Objective Exam Vital Signs Vital Signs Date Time Temp Pulse Resp B/P (MAP) Pulse Ox O2 Delivery O2 Flow Rate FiO2 06/13/22 09:13 Room Air 06/13/22 08:00 36.4 86 18 169/78 (108) 98 Capillary Refill : General Appearance: No Apparent Distress, WD/WN, Anxious, Chronically ill, Thin HEENT: PERRL/EOMI, Normal ENT Inspection, Pharynx Normal Neck: Full Range of Motion, Normal Inspection, Non Tender, Supple, Carotid Bruit Respiratory: Chest Non Tender, Lungs Clear, Normal Breath Sounds, No Accessory Muscle Use, No Respiratory Distress Cardiovascular: Regular Rate, Rhythm, No Edema, No Gallop, No JVD, No Murmur, Normal Peripheral Pulses Gastrointestinal: Normal Bowel Sounds, No Organomegaly, No Pulsatile Mass, Non Tender, Soft Back: Normal Inspection, No CVA Tenderness, No Vertebral Tenderness Extremity: Normal Capillary Refill, Normal Inspection, Normal Range of Motion, Non Tender, No Calf Tenderness, No Pedal Edema Neurologic/Psychiatric: Alert, Oriented x3, Normal Mood/Affect, medical reception II-XII Norm as Tested, Abnormal Gait, Motor Weakness (Generalized) Skin: Normal Color, Warm/Dry Lymphatic: No Adenopathy Results/Procedures Lab Patient resulted labs reviewed. FIM Transfers Therapy Code Descriptions/Definitions Functional [place] Measure: 0=Not Assessed/NA 4=Minimal Assistance 1=Total Assistance 5=Supervision or Setup 2=Maximal Assistance 6=Modified [place] 3=Moderate Assistance 7=Complete IndependenceSCALE: Activities may be completed with or without assistive devices. 0-Duzbojgwya-rksqbza completes the activity by him/herself with no assistance from a helper. 5-Set-up or Clean-up Assistance-helper sets up or cleans up; patient completes activity. [place] assists only prior to or following the activity. 4-Supervision or Touching Assistance-helper provides verbal cues and/or touching/steadying and/or contact guard assistance as patient completes activity. Assistance may be provided throughout the activity or intermittently. 3-Partial/Moderate Assistance-helper does LESS THAN HALF the effort. [place] lifts, holds or supports trunk or limbs, but provides less than half the effort. 2-Substantial/Maximal Assistance-helper does MORE THAN HALF the effort. [place] lifts or holds trunk or limbs and provides more than half the effort. 8-Dprndptrk-pehlpf does ALL the effort. Patient does none of the effort to complete the activity. Or, the assistance of 2 or more helpers is required for the patient to complete the activity. If activity was not attempted, code reason: 7-Patient Refused. 9-Not Applicable-not attempted and the patient did not perform the activity before the current illness, exacerbation or injury. 10-Not Attempted due to Environmental Limitations-(lack of equipment, weather restraints, etc.). 88-Not Attempted due to Medical Conditions or Safety Concerns. Roll Left to Right (QC): 6 Sit to Lying (QC): 6 Sit to Stand (QC): 6 Chair/Faa-rx-Pxobk Xfer(QC): 4 Car Transfer (QC): 3 Gait Training Does the Patient Walk?: Yes Distance: 500' Walk 10 feet (QC): 6 Walk 50 ft with 2 Turns(QC): 5 Walk 150 ft (QC): 5 Walking 10ft/uneven surface-QC: 3 Gait Persons Needed: 1 Gait Assistive Device: Walker 4 Wheeled Wheelchair Training Does the Pt Use a Wheelchair?: No Distance: 0 Wheel 50 ft with 2 turns (QC): 9 Wheel 150 ft (QC): 9 Stair Training Stair Training: Handrails/: 2 handrails #of Steps: 4 1 Step (curb) (QC): 3 4 Steps (QC): 4 12 Steps (QC): 3 Stairs: Pattern: Step to Balance Picking up an Object (QC): 3 ADL-Treatment Eating (QC): 6 Oral Hygiene (QC): 4 (Standing at sink, pt required SBA for safety due to LOB.) Shower/Bathe Self (QC): 7 Upper Body Dressing (QC): 5 Lower Body Dressing (QC): 3 On/Off Footwear (QC): 5 Toileting Hygiene (QC): 4 Toilet Transfer (QC): 4 Assessment/Plan Assessment and Plan Assess & Plan/Chief Complaint Assessment: Acute ischemic stroke 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 Pacemaker Diabetes Recent type II NSTEMI Hypertension Hyperlipidemia Neuropathy GERD Chronic coccygeal pain Anxiety Elevated liver enzymes will hold statin and Zetia on 06/08/2022 Plan: Home meds Blood sugar checks Supportive care Aggressive rehab 06/05/2022: Restart OHA 06/06/2022: Monitor sugars 06/07/2022: Supportive care Continue monitoring blood sugars Hold statin and Zetia 06/08/2022: Supportive care 06/09/2022: Lovenox for DVT PPx 06/10/2022: DC Lovenox due to hematoma abdominal wall 06/11/2022: Decrease OHA 06/12/2022: Stop OHA Start insulin 06/13/2022: Blood sugars are improved (1) Acute ischemic stroke (2) TIA (transient ischemic attack) (3) Expressive aphasia (4) NSTEMI (non-ST elevated myocardial infarction) (5) Pacemaker (6) Hypertension (7) Amputation of toe of right foot (8) Uncontrolled diabetes mellitus Status: RAJESH Monet DO Jun 13, 2022 06:14
[2022-06-13] MEDS: inSUlin ASPART (NovoLOG) 1 UNIT/0.01 ML (CHARGE PER UNIT) SC SCH ×4 (06:16→20:49)
[2022-06-13 08:00] VITALS: BP 169/78
[2022-06-13] MEDS: lisINopril 40 MG (PRINIVIL) TABLET PO SCH (08:33)
[2022-06-13] MEDS: DOCUSATE SODIUM 100 MG (COLACE) CAP PO SCH ×2 (08:33→20:45)
[2022-06-13] MEDS: CLOPIDOGREL 75 MG (PLAVIX) TABLET PO SCH (08:33)
[2022-06-13] MEDS: SENNA W/DOCUSATE (SENOKOT S) TABLET PO SCH ×2 (08:34→20:45)
[2022-06-13] MEDS: SIMETHICONE 80 MG (MYLICON) CHEW PO SCH ×4 (08:34→20:48)
[2022-06-13] MEDS: MAGNESIUM OXIDE (MAG-OX)400 MG TAB PO SCH ×2 (08:34→17:40)
[2022-06-13] MEDS: VITAMIN D3 25 MCG (1,000 UNITS) TABLET PO SCH (08:34)
[2022-06-13] MEDS: ASPIRIN 81 MG CHEW (CHILDREN'S ASA) PO SCH (08:34)
[2022-06-13] MEDS: GABAPENTIN 300 MG (NEURONTIN) CAP PO SCH ×3 (08:34→20:49)
[2022-06-13] MEDS: PANTOPRAZOLE 20 MG TABLET (PROTONIX) PO SCH (08:34)
[2022-06-13] MEDS: polyethylene glycoL POWDER 17 GM (MIRALAX) PACK PO SCH ×2 (08:36→20:45)
[2022-06-13] MEDS: FLUTICASONE NASAL SPRAY (FLONASE) 16 GM BTL NS SCH (08:36)
[2022-06-13] MEDS: HYDROCORTISONE 1% CREAM 30 GM TUBE TP SCH ×3 (08:42→20:50)
[2022-06-13] MEDS: metFORMIN 500 MG (GLUCOPHAGE) TAB PO SCH ×2 (08:42→17:40)
[2022-06-13 20:45] VITALS: BP 126/74
[2022-06-13] MEDS: MELATONIN 3 MG TABLET PO PRN (20:48)
[2022-06-13] MEDS: MONTELUKAST 10 MG (SINGULAIR) TAB PO SCH (20:48)
[2022-06-13] MEDS: PRAMIPEXOLE 0.125 MG (MIRAPEX) TABLET PO SCH (20:48)
[2022-06-13] MEDS: TOLTERODINE LA 2 MG (DETROL LA) CAP PO SCH (20:49)
[2022-06-13] MEDS: LORATADINE (CLARITIN) 10 MG TAB PO SCH (20:49)
[2022-06-14] MEDS: CATHETER FLUSH 10 ML SYR IVP SCH ×3 (06:35→21:11)
[2022-06-14] MEDS: inSUlin ASPART (NovoLOG) 1 UNIT/0.01 ML (CHARGE PER UNIT) SC SCH ×4 (06:36→21:11)
[2022-06-14] MEDS: MULTIVIT W/MINERALS TAB (THERAGRAN M) PO SCH (06:36)
[2022-06-14 07:28] VITALS: BP 169/80
[2022-06-14] MEDS: DOCUSATE SODIUM 100 MG (COLACE) CAP PO SCH ×2 (07:57→21:08)
[2022-06-14] MEDS: SIMETHICONE 80 MG (MYLICON) CHEW PO SCH ×4 (07:57→21:10)
[2022-06-14] MEDS: SENNA W/DOCUSATE (SENOKOT S) TABLET PO SCH ×2 (07:57→21:07)
[2022-06-14] MEDS: VITAMIN D3 25 MCG (1,000 UNITS) TABLET PO SCH (07:57)
[2022-06-14] MEDS: CLOPIDOGREL 75 MG (PLAVIX) TABLET PO SCH (07:57)
[2022-06-14] MEDS: metFORMIN 500 MG (GLUCOPHAGE) TAB PO SCH ×2 (07:58→18:07)
[2022-06-14] MEDS: ASPIRIN 81 MG CHEW (CHILDREN'S ASA) PO SCH (07:58)
[2022-06-14] MEDS: PANTOPRAZOLE 20 MG TABLET (PROTONIX) PO SCH (07:58)
[2022-06-14] MEDS: GABAPENTIN 300 MG (NEURONTIN) CAP PO SCH ×3 (07:58→21:06)
[2022-06-14] MEDS: lisINopril 40 MG (PRINIVIL) TABLET PO SCH (07:58)
[2022-06-14] MEDS: MAGNESIUM OXIDE (MAG-OX)400 MG TAB PO SCH ×2 (07:58→18:07)
[2022-06-14] MEDS: HYDROCORTISONE 1% CREAM 30 GM TUBE TP SCH ×3 (08:01→21:11)
[2022-06-14] MEDS: polyethylene glycoL POWDER 17 GM (MIRALAX) PACK PO SCH ×2 (08:01→21:12)
[2022-06-14] MEDS: FLUTICASONE NASAL SPRAY (FLONASE) 16 GM BTL NS SCH (08:01)
--- NOTE | 2022-06-14 09:20 | Physical Therapy Daily Note ---
PT Daily Note-Current Subjective Pt sitting in recliner upon arrival. Pt agrees to PT. Pain Section J - Health Conditions 1. Rarely or not at all 2. Occasionally 3. Frequently 4. Almost constantly 8. Unable to answer Pain Effect on Sleep: 1 Pain Interference with Therapy: 1 Pain Interference w/Day-to-Day: 1 Transfers SCALE: Activities may be completed with or without assistive devices. 1-Jpwznwlqco-squmjnt completes the activity by him/herself with no assistance from a helper. 5-Set-up or Clean-up Assistance-helper sets up or cleans up; patient completes activity. [place] assists only prior to or following the activity. 4-Supervision or Touching Assistance-helper provides verbal cues and/or touching/steadying and/or contact guard assistance as patient completes activity. Assistance may be provided throughout the activity or intermittently. 3-Partial/Moderate Assistance-helper does LESS THAN HALF the effort. [place] lifts, holds or supports trunk or limbs, but provides less than half the effort. 2-Substantial/Maximal Assistance-helper does MORE THAN HALF the effort. [place] lifts or holds trunk or limbs and provides more than half the effort. 1-Chgolfuzb-madirv does ALL the effort. Patient does none of the effort to complete the activity. Or, the assistance of 2 or more helpers is required for the patient to complete the activity. If activity was not attempted, code reason: 7-Patient Refused. 9-Not Applicable-not attempted and the patient did not perform the activity b efore the current illness, exacerbation or injury. 10-Not Attempted due to Environmental Limitations-(lack of equipment, weather restraints, etc.). 88-Not Attempted due to Medical Conditions or Safety Concerns. Sit to Stand (QC): 5 Weight Bearing Right Lower Extremity: Right Weight Bearing/Tolerated Heel Weight bearing only. Patient has a orthopedic shoe to decrease forefoot wt. Bearing, however esauon reports it is at home. Gait Training Does the Patient Walk?: Yes Distance: 500, 125' Walk 10 feet (QC): 5 Walk 50 ft with 2 Turns(QC): 5 Walk 150 ft (QC): 5 Gait Assistive Device: Walker 4 Wheeled Wheelchair Training Does the Pt Use a Wheelchair?: No Exercises Standing: Hip Abduction, Hamstring curls, Heel/toe raises, 3 way Ex=Flex, Abd, Ext Standing Reps: 15 NuStep Minutes: 15 NuStep Workload: 4 Treatments TF to standing and uses BR. Pt amb. in hallway and uses NuStep before RB. Pt completes Standing EX in //bars. After short RB, Pt amb. in hallway returning to room to rest in recliner. All needs met, call light in hand. Assessment Current Status: Good Progress Pt is improving with retropulsivity. Pt fatigues at times and needs RB to recover. PT Clinical Statistics Manager Goals Clinical Statistics Manager Goals PT Clinical Statistics Manager Goals Time Frame: Jun 19, 2022 Roll Left & Right (QC): 6 Sit to Lying (QC): 6 Lying-Sitting on Side/Bed(QC): 6 Sit to Stand (QC): 6 Chair/Nlv-yn-Ubdzs Xfer(QC): 6 Toilet Transfer (QC): 6 Car Transfer (QC): 6 Does the Patient Walk: Yes Walk 10 feet (QC): 6 Walk 50ft with 2 Turns (QC): 6 Walk 150 ft (QC): 6 Walking 10ft on Uneven Surface: 6 1 Step (curb) (QC): 6 4 Steps (QC): 4 12 Steps (QC): 4 Picking up an Object (QC): 6 Does the Pt use WC or Scooter?: No Wheel 50 feet with 2 turns (QC: 9 Wheel 150 feet: 9 PT Plan Problem List Problem List: Activity Tolerance, Balance Treatment/Plan Treatment Plan: Continue Plan of Care Treatment Plan: Bed Mobility, Education, Functional Activity Segun, Functional Strength, Group Therapy, Gait, Safety, Therapeutic Exercise, Transfers Treatment Duration: Jul 17, 2022 Frequency: At least 5 of 7 days/Wk (IRF) Estimated Hrs Per Day: 1.5 hours per day Patient and/or Family Agrees t: Yes Time Time In: 800 Time Out: 915 DATE: Jun 14, 2022 Total Billed Treatment Time: 75 Total Billed Treatment 1, EX x3 (40m), GT (20m) & FA (15m) IRAJ ESCUDERO ANIMAL BEHAVIOURIST Jun 14, 2022 09:20
--- NOTE | 2022-06-14 09:49 | PM&R Progress Note ---
Subjective HPI/CC On Admission Date Seen by Provider: Jun 14, 2022 Time Seen by Provider: 09:00 Subjective/Events-last exam 06/14/2022: Pt's sugars are doing better Blood sugar is 200 Transitioning to Insulin Checked meds and labs 06/13/2022: Patient doing much better Blood sugars are 200 so allowed permissive hyperglycemia due to hypoglycemic episodes from oral hypoglycemic agents No other concerns 06/12/2022: Patient doing a lot better Talked to her about oral hypoglycemic agents and transition insulin Her is on Levemir so she is familiar No other concerns 06/11/2022: Patient doing well Son in law is at bedside Hypoglycemia noted so adjusted OHA 06/10/2022: Doing well DC Lovenox due to abdominal wall hematoma on right side just after 1 dose of Lovenox Monitoring closely Sugars are ok 06/09/2022: No major issues Questioning about Lovenox I added Walking a lot better No pain reported 06/08/2022: No major issues Incontinence noted and will start bladder training AL at DC for patient and her 06/07/2022: Patient doing well No major issues Blood sugars reviewed No falls No pain 06/06/2022: Doing well Improved sugars No pain reported Weakness noted 06/05/2022: Doing well Settling in well No expressive aphasia noted Overall weak BM+ Increased sugar so will start home dose of Glimepride Review of Systems General: Fatigue, Malaise Objective Exam Vital Signs Vital Signs Date Time Temp Pulse Resp B/P (MAP) Pulse Ox O2 Delivery O2 Flow Rate FiO2 06/14/22 21:00 Room Air 06/14/22 20:31 36.3 79 16 130/61 (84) 96 Capillary Refill : General Appearance: No Apparent Distress, WD/WN, Anxious, Chronically ill, Thin HEENT: PERRL/EOMI, Normal ENT Inspection, Pharynx Normal Neck: Full Range of Motion, Normal Inspection, Non Tender, Supple, Carotid Bruit Respiratory: Chest Non Tender, Lungs Clear, Normal Breath Sounds, No Accessory Muscle Use, No Respiratory Distress Cardiovascular: Regular Rate, Rhythm, No Edema, No Gallop, No JVD, No Murmur, Normal Peripheral Pulses Gastrointestinal: Normal Bowel Sounds, No Organomegaly, No Pulsatile Mass, Non Tender, Soft Back: Normal Inspection, No CVA Tenderness, No Vertebral Tenderness Extremity: Normal Capillary Refill, Normal Inspection, Normal Range of Motion, Non Tender, No Calf Tenderness, No Pedal Edema Neurologic/Psychiatric: Alert, Oriented x3, Normal Mood/Affect, resolution expert II-XII Norm as Tested, Abnormal Gait, Motor Weakness (Generalized) Skin: Normal Color, Warm/Dry Lymphatic: No Adenopathy Results/Procedures Lab Patient resulted labs reviewed. FIM Transfers Therapy Code Descriptions/Definitions Functional [place] Measure: 0=Not Assessed/NA 4=Minimal Assistance 1=Total Assistance 5=Supervision or Setup 2=Maximal Assistance 6=Modified [place] 3=Moderate Assistance 7=Complete IndependenceSCALE: Activities may be completed with or without assistive devices. 5-Yeanjysxel-utckmma completes the activity by him/herself with no assistance from a helper. 5-Set-up or Clean-up Assistance-helper sets up or cleans up; patient completes activity. [place] assists only prior to or following the activity. 4-Supervision or Touching Assistance-helper provides verbal cues and/or touching/steadying and/or contact guard assistance as patient completes activity. Assistance may be provided throughout the activity or intermittently. 3-Partial/Moderate Assistance-helper does LESS THAN HALF the effort. [place] lifts, holds or supports trunk or limbs, but provides less than half the effort. 2-Substantial/Maximal Assistance-helper does MORE THAN HALF the effort. [place] lifts or holds trunk or limbs and provides more than half the effort. 5-Ykunvqwxl-ynwadv does ALL the effort. Patient does none of the effort to complete the activity. Or, the assistance of 2 or more helpers is required for the patient to complete the activity. If activity was not attempted, code reason: 7-Patient Refused. 9-Not Applicable-not attempted and the patient did not perform the activity before the current illness, exacerbation or injury. 10-Not Attempted due to Environmental Limitations-(lack of equipment, weather restraints, etc.). 88-Not Attempted due to Medical Conditions or Safety Concerns. Roll Left to Right (QC): 6 Sit to Lying (QC): 6 Sit to Stand (QC): 5 Chair/Qih-at-Iulqa Xfer(QC): 4 Car Transfer (QC): 3 Gait Training Does the Patient Walk?: Yes Distance: 500, 125' Walk 10 feet (QC): 5 Walk 50 ft with 2 Turns(QC): 5 Walk 150 ft (QC): 5 Walking 10ft/uneven surface-QC: 3 Gait Persons Needed: 1 Gait Assistive Device: Walker 4 Wheeled Wheelchair Training Does the Pt Use a Wheelchair?: No Distance: 0 Wheel 50 ft with 2 turns (QC): 9 Wheel 150 ft (QC): 9 Stair Training Stair Training: Handrails/: 2 handrails #of Steps: 4 1 Step (curb) (QC): 3 4 Steps (QC): 4 12 Steps (QC): 3 Stairs: Pattern: Step to Balance Picking up an Object (QC): 3 ADL-Treatment Eating (QC): 6 Oral Hygiene (QC): 4 (Standing at sink, pt required SBA for safety due to LOB.) Shower/Bathe Self (QC): 7 Upper Body Dressing (QC): 5 Lower Body Dressing (QC): 3 On/Off Footwear (QC): 5 Toileting Hygiene (QC): 4 Toilet Transfer (QC): 4 Assessment/Plan Assessment and Plan Assess & Plan/Chief Complaint Assessment: Acute ischemic stroke 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 Pacemaker Diabetes Recent type II NSTEMI Hypertension Hyperlipidemia Neuropathy GERD Chronic coccygeal pain Anxiety Elevated liver enzymes will hold statin and Zetia on 06/08/2022 Plan: Home meds Blood sugar checks Supportive care Aggressive rehab 06/05/2022: Restart OHA 06/06/2022: Monitor sugars 06/07/2022: Supportive care Continue monitoring blood sugars Hold statin and Zetia 06/08/2022: Supportive care 06/09/2022: Lovenox for DVT PPx 06/10/2022: DC Lovenox due to hematoma abdominal wall 06/11/2022: Decrease OHA 06/12/2022: Stop OHA Start insulin 06/13/2022: Blood sugars are improved 06/14/2022: Monitor sugars Insulin going well (1) Acute ischemic stroke (2) TIA (transient ischemic attack) (3) Expressive aphasia (4) NSTEMI (non-ST elevated myocardial infarction) (5) Pacemaker (6) Hypertension (7) Amputation of toe of right foot (8) Uncontrolled diabetes mellitus Status: Acute RAJESH LATIF DO Jun 14, 2022 09:49
--- NOTE | 2022-06-14 10:11 | Progress Note - Urology ---
Progress Note-Urology Progress Notes/Assess & Plan Progress/Assessment & Plan CONTINUES WELL BURGER. TOLERATES DETROL LA WELL Final Diagnosis INCONTINENCE NEIL GORDON MD Jun 14, 2022 10:11
--- NOTE | 2022-06-14 11:46 | Occupational Ther Daily Note ---
OT Current Status-Daily Note Subjective Pt alert, in recliner. Agrees to therapy. C/o no pain at this time. Mental Status/Objective Patient Orientation: Person, Place, Time, Situation Attachments: IV Pt continues to display decreased memory. ADL-Treatment Pt agrees to shower. Ambulates to bathroom with FWW, supervised for LOB. Pt doffs upper/lower body clothing and footwear independently. Pt transfers to shower bench supervised and showers by self sitting on bench 100% of the time. Pt uses grabbars and handheld shower. Drys body independently. Pt transfers from shower bench to FWW seat, supervised. Completes upper/lower body dressing by self after set up. Pt supervision for sit to stand from FWW seat to hike pants over hips. Pt dons/doff socks by self, figure four method. Pt completes toilet transfer and hygiene with supervision due to frequent LOB. Pt stands at sink with FWW, supervised and completes oral care. Frequently has to grab sink to keep from falling backwards when standing at the sink. Therapy Code Descriptions/Definitions Functional [place] Measure: 0=Not Assessed/NA 4=Minimal Assistance 1=Total Assistance 5=Supervision or Setup 2=Maximal Assistance 6=Modified [place] 3=Moderate Assistance 7=Complete IndependenceSCALE: Activities may be completed with or without assistive devices. 0-Guhkfmwufy-solrtza completes the activity by him/herself with no assistance from a helper. 5-Set-up or Clean-up Assistance-helper sets up or cleans up; patient completes activity. [place] assists only prior to or following the activity. 4-Supervision or Touching Assistance-helper provides verbal cues and/or touching/steadying and/or contact guard assistance as patient completes activity. Assistance may be provided throughout the activity or intermittently. 3-Partial/Moderate Assistance-helper does LESS THAN HALF the effort. [place] lifts, holds or supports trunk or limbs, but provides less than half the effort. 2-Substantial/Maximal Assistance-helper does MORE THAN HALF the effort. [place] lifts or holds trunk or limbs and provides more than half the effort. 8-Bikpaljel-boqdrj does ALL the effort. Patient does none of the effort to complete the activity. Or, the assistance of 2 or more helpers is required for the patient to complete the activity. If activity was not attempted, code reason: 7-Patient Refused. 9-Not Applicable-not attempted and the patient did not perform the activity before the current illness, exacerbation or injury. 10-Not Attempted due to Environmental Limitations-(lack of equipment, weather restraints, etc.). 88-Not Attempted due to Medical Conditions or Safety Concerns. Eating (QC): 6 Oral Hygiene (QC): 4 Shower/Bathe Self (QC): 6 Upper Body Dressing (QC): 5 Lower Body Dressing (QC): 4 On/Off Footwear: 5 Toileting Hygiene (QC): 4 Toilet Transfer (QC): 4 Other Treatment Pt completed 5 minute reps ea. of forward and backward rotation on the arm bike with no resistance while sitting. Completes cognitive and FM activity while standing ~5 mins at a time before sitting for a break. Participated in 5 different UE exercises with yellow resistant theraband in reps of 20 each. All activities are performed to improve UE strength, endurance and cognition, beneficial for self care skills and safe mobility. Skill demonstration of each activity was provided to ensure proper technique and positioning. Pt Ambulated back to her room, supervised with FWW. In recliner post tx with phone/call light in reach. All needs met in room. Education OT Patient Education: Home exercise program Teaching Recipient: Patient Teaching Methods: Demonstration Response to Teaching: Return Demonstration BIMS CAM BIMS Expression of Ideas and Wants: Without Difficulty Understanding Verbal Content: Understands IRF SARITA BIMS: IRF SARITA BIMS Response (Comments) Value Repitition of Three Words Three 3 Recalls Socks Yes, No Cue Required 2 Recalls Blue Yes, No Cue Required 2 Recalls Bed Yes, No Cue Required 2 Year Correct 3 Month Accurate Within 5 Days 2 Day Correct 1 Total 15 OT Short Term Goals Short Term Goals Time Frame: Jun 10, 2022 Eatin Oral hygiene: 5 Toileting hygiene: 5 Shower/bathe self: 5 Upper body dressin Lower body dressin Putting on/taking off footwear: 5 OT Senior Care Goals Senior Care Goals Time Frame: Jun 16, 2022 Acute change in mental status: 0 Inattention: 0 Disorganized thinkin Altered level of consciousness: 0 Eating (QC): 6 (met) Oral Hygiene (QC): 6 (Met in sitting not met in standing) Toileting Hygiene (QC): 6 (not met) Shower/Bathe Self (QC): 6 (met 100% sitting) Upper Body Dressing (QC): 6 (Not met) Lower Body Dressing (QC): 6 (not met) On/Off Footwear (QC): 6 (not met) Additional Goals: 1-Demonstrate ADL Tasks, 2-Verbalize Understanding, 3- ImproveStrength/Segun 1=Demonstrate adherence to instructed precautions during ADL tasks. 2=Patient will verbalize/demonstrate understanding of assistive devices/modifications for ADL. 3=Patient will improve strength/tolerance for activity to enable patient to perform ADL's. OT Education/Plan Problem List/Assessment Assessment: Decreased Activ Tolerance, Impaired Cognition, Impaired Funct Balance, Impaired I ADL's, Impaired Self-Care Skills Discharge Recommendations Plan/Recommendations: Continue POC Treatment Plan/Plan of Care Patient would benefit from OT for education, treatment and training to promote independence in ADL's, mobility, safety and/or upper extremity function for ADL's. Plan of Care: ADL Retraining, Functional Mobility, Group Exercise/Act as Ind, Orthotic Fitting/Training, UE Funct Exercise/Act, UE Neuromus Re-Ed/Coord Treatment Duration: Jun 16, 2022 Frequency: At least 5 of 7 days/Wk (IRF) Estimated Hrs Per Day: 1.5 hours per day (75-90 min/day ) Agreement: Yes Rehab Potential: Fair Time Start Time: 09:15 Stop Time: 10:30 DATE: Jun 14, 2022 Total Time Billed (hr/min): 75 Billed Treatment Time 1 visit ADL 3 (45 min) EX 2 (30 min) VIVIANA IBARRA Jun 14, 2022 11:46
--- NOTE | 2022-06-14 12:02 | Speech Therapy Daily Note ---
Speech Daily Progress Note Subjective Date Seen by Provider: Jun 14, 2022 Time Seen by Provider: 11:30 The patient was seated upright in her recliner, awake and alert, upon entrance to her room by the clinician. The patient greeted the clinician appropriately and was agreeable to participation in the cognitive linguistic treatment session. The patient was in great spirits and remained participatory throughout each therapy tasks. The patient independently requests to use the restroom which does display possible improvement with prior incontinence issues. The patient utilized the call light appropriately and the patient's RN presented to aid the patient to the restroom. Objective The patient participated in a word-finding exercise with the clinician. The patient was provided a specific category and letter. The patient was asked to provide a word which was initiated with the letter and "fit into" the category. The patient displayed 90% accuracy with the task with mild clinician verbal cueing. Assessment Assessment Current Status: Good Progress Treatment Plan Continue Plan of Care Speech Short Term Goals Short Term Goals Short Term Goals 1. The patient will display 80% accuracy with structured word-finding exercises, independently. 2. The patient will demonstrate word-finding strategies with 80% accuracy, independently. Speech Case Repairer Goals [facility] Goals 1. The patient will demonstrate improved word-finding abilities for safe discharge to the least restrictive environment. Time Frame: One Week. Speech-Plan Treatment Plan Speech Therapy Treatment Plan: Continue Plan of Care Treatment Duration: Jun 04, 2022 Frequency: Modified Program (IRF) Estimated Hrs Per Day: .5 hour per day Rehab Potential: Fair Safety Risks/Education Teaching Recipient: Patient Teaching Methods: Demonstration, Discussion Response to Teaching: Verbalize Understanding, Return Demonstration Education Topics Provided: Word Finding Strategies Time Speech Therapy Time In: 11:30 Speech Therapy Time Out: 12:00 DATE: Jun 14, 2022 Total Billed Time: 30 Billed Treatment Time NITIN Esposito ELIZABETH Jun 14, 2022 12:02
[2022-06-14 20:31] VITALS: BP 130/61
[2022-06-14] MEDS: MONTELUKAST 10 MG (SINGULAIR) TAB PO SCH (21:06)
[2022-06-14] MEDS: LORATADINE (CLARITIN) 10 MG TAB PO SCH (21:07)
[2022-06-14] MEDS: MELATONIN 3 MG TABLET PO PRN (21:07)
[2022-06-14] MEDS: PRAMIPEXOLE 0.125 MG (MIRAPEX) TABLET PO SCH (21:08)
[2022-06-14] MEDS: TOLTERODINE LA 2 MG (DETROL LA) CAP PO SCH (21:09)
--- NOTE | 2022-06-15 05:38 | PM&R Progress Note ---
Subjective HPI/CC On Admission Date Seen by Provider: Jun 15, 2022 Time Seen by Provider: 08:45 Subjective/Events-last exam 06/15/2022: Pt is doing pretty well Blood sugars are reasonable Will discharge to assisted living tomorrow Overall doing much better 06/14/2022: Pt's sugars are doing better Blood sugar is 200 Transitioning to Insulin Checked meds and labs 06/13/2022: Patient doing much better Blood sugars are 200 so allowed permissive hyperglycemia due to hypoglycemic episodes from oral hypoglycemic agents No other concerns 06/12/2022: Patient doing a lot better Talked to her about oral hypoglycemic agents and transition insulin Her is on Levemir so she is familiar No other concerns 06/11/2022: Patient doing well Son in law is at bedside Hypoglycemia noted so adjusted OHA 06/10/2022: Doing well DC Lovenox due to abdominal wall hematoma on right side just after 1 dose of Lovenox Monitoring closely Sugars are ok 06/09/2022: No major issues Questioning about Lovenox I added Walking a lot better No pain reported 06/08/2022: No major issues Incontinence noted and will start bladder training AL at DC for patient and her 06/07/2022: Patient doing well No major issues Blood sugars reviewed No falls No pain 06/06/2022: Doing well Improved sugars No pain reported Weakness noted 06/05/2022: Doing well Settling in well No expressive aphasia noted Overall weak BM+ Increased sugar so will start home dose of Glimepride Review of Systems General: Fatigue, Malaise Objective Exam Vital Signs Vital Signs Date Time Temp Pulse Resp B/P (MAP) Pulse Ox O2 Delivery O2 Flow Rate FiO2 06/15/22 21:10 Room Air 06/15/22 20:00 36.6 98 20 147/63 (91) 96 Capillary Refill : General Appearance: No Apparent Distress, WD/WN, Anxious, Chronically ill, Thin HEENT: PERRL/EOMI, Normal ENT Inspection, Pharynx Normal Neck: Full Range of Motion, Normal Inspection, Non Tender, Supple, Carotid Bruit Respiratory: Chest Non Tender, Lungs Clear, Normal Breath Sounds, No Accessory Muscle Use, No Respiratory Distress Cardiovascular: Regular Rate, Rhythm, No Edema, No Gallop, No JVD, No Murmur, Normal Peripheral Pulses Gastrointestinal: Normal Bowel Sounds, No Organomegaly, No Pulsatile Mass, Non Tender, Soft Back: Normal Inspection, No CVA Tenderness, No Vertebral Tenderness Extremity: Normal Capillary Refill, Normal Inspection, Normal Range of Motion, Non Tender, No Calf Tenderness, No Pedal Edema Neurologic/Psychiatric: Alert, Oriented x3, Normal Mood/Affect, director of scientific research II-XII Norm as Tested, Abnormal Gait, Motor Weakness (Generalized) Skin: Normal Color, Warm/Dry Lymphatic: No Adenopathy Results/Procedures Lab Patient resulted labs reviewed. FIM Transfers Therapy Code Descriptions/Definitions Functional [place] Measure: 0=Not Assessed/NA 4=Minimal Assistance 1=Total Assistance 5=Supervision or Setup 2=Maximal Assistance 6=Modified [place] 3=Moderate Assistance 7=Complete IndependenceSCALE: Activities may be completed with or without assistive devices. 5-Pqlrgfqxew-glvenvh completes the activity by him/herself with no assistance from a helper. 5-Set-up or Clean-up Assistance-helper sets up or cleans up; patient completes activity. [place] assists only prior to or following the activity. 4-Supervision or Touching Assistance-helper provides verbal cues and/or touching/steadying and/or contact guard assistance as patient completes activity. Assistance may be provided throughout the activity or intermittently. 3-Partial/Moderate Assistance-helper does LESS THAN HALF the effort. [place] lifts, holds or supports trunk or limbs, but provides less than half the effort. 2-Substantial/Maximal Assistance-helper does MORE THAN HALF the effort. [place] lifts or holds trunk or limbs and provides more than half the effort. 3-Suxpixcxa-siutxt does ALL the effort. Patient does none of the effort to complete the activity. Or, the assistance of 2 or more helpers is required for the patient to complete the activity. If activity was not attempted, code reason: 7-Patient Refused. 9-Not Applicable-not attempted and the patient did not perform the activity before the current illness, exacerbation or injury. 10-Not Attempted due to Environmental Limitations-(lack of equipment, weather restraints, etc.). 88-Not Attempted due to Medical Conditions or Safety Concerns. Roll Left to Right (QC): 6 Sit to Lying (QC): 6 Sit to Stand (QC): 5 Chair/Qll-ww-Oofzk Xfer(QC): 4 Car Transfer (QC): 3 Gait Training Does the Patient Walk?: Yes Distance: 500, 125' Walk 10 feet (QC): 5 Walk 50 ft with 2 Turns(QC): 5 Walk 150 ft (QC): 5 Walking 10ft/uneven surface-QC: 3 Gait Persons Needed: 1 Gait Assistive Device: Walker 4 Wheeled Wheelchair Training Does the Pt Use a Wheelchair?: No Distance: 0 Wheel 50 ft with 2 turns (QC): 9 Wheel 150 ft (QC): 9 Stair Training Stair Training: Handrails/: 2 handrails #of Steps: 4 1 Step (curb) (QC): 3 4 Steps (QC): 4 12 Steps (QC): 3 Stairs: Pattern: Step to Balance Picking up an Object (QC): 3 ADL-Treatment Eating (QC): 6 Oral Hygiene (QC): 4 Shower/Bathe Self (QC): 6 Upper Body Dressing (QC): 5 Lower Body Dressing (QC): 4 On/Off Footwear (QC): 5 Toileting Hygiene (QC): 4 Toilet Transfer (QC): 4 Assessment/Plan Assessment and Plan Assess & Plan/Chief Complaint Assessment: Acute ischemic stroke 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 on 04/18 Pacemaker Diabetes Recent type II NSTEMI Hypertension Hyperlipidemia Neuropathy GERD Chronic coccygeal pain Anxiety Elevated liver enzymes will hold statin and Zetia on 06/08/2022 Plan: Home meds Blood sugar checks Supportive care Aggressive rehab 06/05/2022: Restart OHA 06/06/2022: Monitor sugars 06/07/2022: Supportive care Continue monitoring blood sugars Hold statin and Zetia 06/08/2022: Supportive care 06/09/2022: Lovenox for DVT PPx 06/10/2022: DC Lovenox due to hematoma abdominal wall 06/11/2022: Decrease OHA 06/12/2022: Stop OHA Start insulin 06/13/2022: Blood sugars are improved 06/14/2022: Monitor sugars Insulin going well 06/15/2022: Monitor sugars DC tomorrow (1) Acute ischemic stroke (2) TIA (transient ischemic attack) (3) Expressive aphasia (4) NSTEMI (non-ST elevated myocardial infarction) (5) Pacemaker (6) Hypertension (7) Amputation of toe of right foot (8) Uncontrolled diabetes mellitus Status: Acute LATIF,RAJESH DO Jun 15, 2022 05:38
[2022-06-15] MEDS: inSUlin ASPART (NovoLOG) 1 UNIT/0.01 ML (CHARGE PER UNIT) SC SCH ×4 (06:07→20:58)
[2022-06-15] MEDS: CATHETER FLUSH 10 ML SYR IVP SCH ×3 (06:47→21:05)
[2022-06-15] MEDS: MULTIVIT W/MINERALS TAB (THERAGRAN M) PO SCH (06:47)
[2022-06-15 07:37] VITALS: BP 131/78
[2022-06-15] MEDS: lisINopril 40 MG (PRINIVIL) TABLET PO SCH (08:14)
[2022-06-15] MEDS: GABAPENTIN 300 MG (NEURONTIN) CAP PO SCH ×3 (08:14→20:49)
[2022-06-15] MEDS: ASPIRIN 81 MG CHEW (CHILDREN'S ASA) PO SCH (08:15)
[2022-06-15] MEDS: VITAMIN D3 25 MCG (1,000 UNITS) TABLET PO SCH (08:15)
[2022-06-15] MEDS: CLOPIDOGREL 75 MG (PLAVIX) TABLET PO SCH (08:15)
[2022-06-15] MEDS: PANTOPRAZOLE 20 MG TABLET (PROTONIX) PO SCH (08:15)
[2022-06-15] MEDS: FLUTICASONE NASAL SPRAY (FLONASE) 16 GM BTL NS SCH (08:16)
[2022-06-15] MEDS: polyethylene glycoL POWDER 17 GM (MIRALAX) PACK PO SCH ×2 (08:16→21:48)
[2022-06-15] MEDS: MAGNESIUM OXIDE (MAG-OX)400 MG TAB PO SCH ×2 (08:30→18:04)
[2022-06-15] MEDS: metFORMIN 500 MG (GLUCOPHAGE) TAB PO SCH ×2 (08:31→18:04)
--- NOTE | 2022-06-15 08:57 | Speech Therapy Daily Note ---
Speech Daily Progress Note Subjective Date Seen by Provider: Jun 15, 2022 Time Seen by Provider: 09:00 The patient was seated upright in her recliner, awake and alert, upon entrance to her room by the clinician. The patient greeted the clinician appropriately and was agreeable to participation in the cognitive linguistic treatment session. Objective As the patient prepares to discharge, the clinician completed a functional memory and word-finding exercise of completed a list of items the patient wishes her daughter to retrieve from her house. The patient and clinician visualized her house, room by room (memory strategy) and made a list for the patient's daughter. Each item was verbally provided by the patient. When the name of an item could not be located, the patient verbally described the item and location (word-finding strategy) to the clinician for identification. The patient displayed excellent accuracy of verbal communication strategies throughout the structured exercise. Assessment Assessment Current Status: Good Progress Treatment Plan Continue Plan of Care Speech Short Term Goals Short Term Goals Short Term Goals 1. The patient will display 80% accuracy with structured word-finding exercises, independently. 2. The patient will demonstrate word-finding strategies with 80% accuracy, independently. Speech Webbing Weaver Goals Senior Living Goals 1. The patient will demonstrate improved word-finding abilities for safe d ischarge to the least restrictive environment. Time Frame: One Week. Speech-Plan Treatment Plan Speech Therapy Treatment Plan: Discontinue ST Treatment Duration: Jun 04, 2022 Frequency: Modified Program (IRF) Estimated Hrs Per Day: .5 hour per day Rehab Potential: Fair Safety Risks/Education Teaching Recipient: Patient Teaching Methods: Demonstration, Discussion Response to Teaching: Verbalize Understanding, Return Demonstration Education Topics Provided: Word Finding Strategies, Memory Strategies Time Speech Therapy Time In: 09:00 Speech Therapy Time Out: 09:30 DATE: Jun 15, 2022 Total Billed Time: 30 Billed Treatment Time 1, MARIANNA LUJAN Jun 15, 2022 08:57
[2022-06-15] MEDS: HYDROCORTISONE 1% CREAM 30 GM TUBE TP SCH ×3 (09:24→21:05)
--- NOTE | 2022-06-15 10:34 | Physical Therapy Daily Note ---
PT Daily Note-Current Subjective Pt sitting in recliner upon arrival. Pt agrees to PT and asks to use BR to start tx. Pain Section J - Health Conditions 1. Rarely or not at all 2. Occasionally 3. Frequently 4. Almost constantly 8. Unable to answer Pain Effect on Sleep: 1 Pain Interference with Therapy: 1 Pain Interference w/Day-to-Day: 1 Mental Status Patient Orientation: Person, Place, Situation Transfers SCALE: Activities may be completed with or without assistive devices. 6-Ekxnybmzex-xdchbsb completes the activity by him/herself with no assistance from a helper. 5-Set-up or Clean-up Assistance-helper sets up or cleans up; patient completes activity. [place] assists only prior to or following the activity. 4-Supervision or Touching Assistance-helper provides verbal cues and/or touching/steadying and/or contact guard assistance as patient completes activity. Assistance may be provided throughout the activity or intermittently. 3-Partial/Moderate Assistance-helper does LESS THAN HALF the effort. [place] lifts, holds or supports trunk or limbs, but provides less than half the effort. 2-Substantial/Maximal Assistance-helper does MORE THAN HALF the effort. [place] lifts or holds trunk or limbs and provides more than half the effort. 3-Oehsxbowy-rfhajh does ALL the effort. Patient does none of the effort to complete the activity. Or, the assistance of 2 or more helpers is required for the patient to complete the activity. If activity was not attempted, code reason: 7-Patient Refused. 9-Not Applicable-not attempted and the patient did not perform the activity befo re the current illness, exacerbation or injury. 10-Not Attempted due to Environmental Limitations-(lack of equipment, weather re straints, etc.). 88-Not Attempted due to Medical Conditions or Safety Concerns. Sit to Stand (QC): 5 Toilet Transfer (QC): 5 Weight Bearing Right Lower Extremity: Right Weight Bearing/Tolerated Heel Weight bearing only. Patient has a orthopedic shoe to decrease forefoot wt. Bearing, however stepson reports it is at home. Gait Training Does the Patient Walk?: Yes Distance: 150' x2 Walk 10 feet (QC): 5 Walk 50 ft with 2 Turns(QC): 5 Walk 150 ft (QC): 5 Gait Assistive Device: Walker 4 Wheeled Exercises NuStep Minutes: 15 NuStep Workload: 5 Treatments TF to standing, uses BR and amb. in hallway. Pt uses NuStep followed by RB. Pt asks to return to room to try BR again. Pt has difficulty w/Bowels but has not had any success this morning. Nurse is advised. All needs met. call light in hand. Assessment Current Status: Good Progress Pt is improving but at times still demonstrates some confusion. PT Penitentiary Goals Penitentiary Goals PT Materials Research Engineer Goals Time Frame: Jun 19, 2022 Roll Left & Right (QC): 6 Sit to Lying (QC): 6 Lying-Sitting on Side/Bed(QC): 6 Sit to Stand (QC): 6 Chair/Mvy-qs-Csvuz Xfer(QC): 6 Toilet Transfer (QC): 6 Car Transfer (QC): 6 Does the Patient Walk: Yes Walk 10 feet (QC): 6 Walk 50ft with 2 Turns (QC): 6 Walk 150 ft (QC): 6 Walking 10ft on Uneven Surface: 6 1 Step (curb) (QC): 6 4 Steps (QC): 4 12 Steps (QC): 4 Picking up an Object (QC): 6 Does the Pt use WC or Scooter?: No Wheel 50 feet with 2 turns (QC: 9 Wheel 150 feet: 9 PT Plan Problem List Problem List: Activity Tolerance Treatment/Plan Treatment Plan: Continue Plan of Care Treatment Plan: Bed Mobility, Education, Functional Activity Segun, Functional Strength, Group Therapy, Gait, Safety, Therapeutic Exercise, Transfers Treatment Duration: Jul 17, 2022 Frequency: At least 5 of 7 days/Wk (IRF) Estimated Hrs Per Day: 1.5 hours per day Patient and/or Family Agrees t: Yes Safety Risks/Education Patient Education: Gait Training, Correct Positioning, Safety Issues Teaching Recipient: Patient Teaching Methods: Discussion Response to Teaching: Verbalize Understanding Time Time In: 800 Time Out: 900 DATE: Jun 15, 2022 Total Billed Treatment Time: 60 Total Billed Treatment 1, GT (15m), FA x2 (30m) & EX (15m) IRAJ ESCUDERO LOBBYIST Jun 15, 2022 10:34
--- NOTE | 2022-06-15 11:04 | Occupational Ther Daily Note ---
OT Current Status-Daily Note Subjective Pt in recliner, alert. Agrees to therapy. C/o no pain at this time. Mental Status/Objective Patient Orientation: Person, Place, Time, Situation ADL-Treatment Pt ambulates to restroom with FWW, supervised. Completes toilet transfer and hygiene, supervised. Pt stood at sink with FWW to complete oral hygiene, supervised. Displays good balance while completing all bathroom task. Pt am bulates to wardrobe with FWW, folds and places clothes in bag and packs toiletry items. Pt keeps balance by backing up to wardrobe door and/or grabbing on to secured clothing rack bar. Pt doffed/doffed upper/lower body clothing and footwear (using figure 4 method) independently. Stood to hike pants over hips with FWW. Educated pt on using surfaces while reaching/grasping items from closet or drawers. Pt demonstrated understanding of education. Therapy Code Descriptions/Definitions Functional [place] Measure: 0=Not Assessed/NA 4=Minimal Assistance 1=Total Assistance 5=Supervision or Setup 2=Maximal Assistance 6=Modified [place] 3=Moderate Assistance 7=Complete IndependenceSCALE: Activities may be completed with or without assistive devices. 2-Iftlfbgpvo-pcdcrsa completes the activity by him/herself with no assistance from a helper. 5-Set-up or Clean-up Assistance-helper sets up or cleans up; patient completes activity. [place] assists only prior to or following the activity. 4-Supervision or Touching Assistance-helper provides verbal cues and/or touching/steadying and/or contact guard assistance as patient completes activity. Assistance may be provided throughout the activity or intermittently. 3-Partial/Moderate Assistance-helper does LESS THAN HALF the effort. [place] lifts, holds or supports trunk or limbs, but provides less than half the effort. 2-Substantial/Maximal Assistance-helper does MORE THAN HALF the effort. [place] lifts or holds trunk or limbs and provides more than half the effort. 6-Ghakqquwl-diuzgi does ALL the effort. Patient does none of the effort to complete the activity. Or, the assistance of 2 or more helpers is required for the patient to complete the activity. If activity was not attempted, code reason: 7-Patient Refused. 9-Not Applicable-not attempted and the patient did not perform the activity before the current illness, exacerbation or injury. 10-Not Attempted due to Environmental Limitations-(lack of equipment, weather restraints, etc.). 88-Not Attempted due to Medical Conditions or Safety Concerns. Oral Hygiene (QC): 4 Upper Body Dressing (QC): 6 Lower Body Dressing (QC): 6 On/Off Footwear: 6 Toileting Hygiene (QC): 4 Toilet Transfer (QC): 4 Other Treatment Pt participated in FM and technical project manager strengthening activity with .5 lb weights on each wrist to improve strength for self care and mobility. Pt participated in writing activities with built up pencil technical project manager and .5 lb weight to improve hand strength and steadiness. Skilled instruction provided for proper technique and positioning. Theraputty HEP and light/medium resistance theraputty given and pt educated. Pt demonstrated understanding of exercises. Pt in recliner at end of session with phone and call light in reach. All needs met. Education OT Patient Education: Energy conservation, Exercise program, Home exercise program, Modified ADL techniques, Safety issues Teaching Recipient: Patient Teaching Methods: Demonstration, Discussion Response to Teaching: Verbalize Understanding, Return Demonstration OT Short Term Goals Short Term Goals Time Frame: Jun 10, 2022 Eatin Oral hygiene: 5 Toileting hygiene: 5 Shower/bathe self: 5 Upper body dressin Lower body dressin Putting on/taking off footwear: 5 OT Inside Plant Supervisor Goals [facility] Goals Time Frame: Jun 16, 2022 Acute change in mental status: 0 Inattention: 0 Disorganized thinkin Altered level of consciousness: 0 Eating (QC): 6 (met) Oral Hygiene (QC): 6 (Met in sitting not met in standing) Toileting Hygiene (QC): 6 (not met) Shower/Bathe Self (QC): 6 (met 100% sitting) Upper Body Dressing (QC): 6 (met) Lower Body Dressing (QC): 6 (met) On/Off Footwear (QC): 6 (met) Additional Goals: 1-Demonstrate ADL Tasks, 2-Verbalize Understanding, 3- ImproveStrength/Segun 1=Demonstrate adherence to instructed precautions during ADL tasks. 2=Patient will verbalize/demonstrate understanding of assistive devices/modifications for ADL. 3=Patient will improve strength/tolerance for activity to enable patient to perform ADL's. OT Education/Plan Problem List/Assessment Assessment: Decreased Activ Tolerance, Decreased Safety Aware, Decreased UE Strength, Impaired Cognition, Impaired Coordination, Impaired Funct Balance, Impaired I ADL's, Impaired Self-Care Skills Discharge Recommendations Plan/Recommendations: Continue POC Treatment Plan/Plan of Care Patient would benefit from OT for education, treatment and training to promote independence in ADL's, mobility, safety and/or upper extremity function for ADL's. Plan of Care: ADL Retraining, Functional Mobility, Group Exercise/Act as Ind, Orthotic Fitting/Training, UE Funct Exercise/Act, UE Neuromus Re-Ed/Coord Treatment Duration: Jun 16, 2022 Frequency: At least 5 of 7 days/Wk (IRF) Estimated Hrs Per Day: 1.5 hours per day (75-90 min/day ) Agreement: Yes Rehab Potential: Fair Time Start Time: 09:30 Stop Time: 11:00 DATE: Jun 15, 2022 Total Time Billed (hr/min): 90 Billed Treatment Time 1 ADL 4 (60 min) EX 2 (30 min) VIVIANA IBARRA Jun 15, 2022 11:04
[2022-06-15] MEDS: DOCUSATE SODIUM 100 MG (COLACE) CAP PO SCH ×2 (11:30→20:50)
[2022-06-15] MEDS: SIMETHICONE 80 MG (MYLICON) CHEW PO SCH ×4 (11:31→20:49)
[2022-06-15] MEDS: SENNA W/DOCUSATE (SENOKOT S) TABLET PO SCH ×2 (11:31→21:48)
--- NOTE | 2022-06-15 15:02 | Physical Therapy Daily Note ---
PT Daily Note-Current Subjective Pt laying Supine in bed upon arrival. Pt agrees to PT but reports fatigued and anxious about tomorrow's d/c. Pain Location: No Pain Reported Section J - Health Conditions 1. Rarely or not at all 2. Occasionally 3. Frequently 4. Almost constantly 8. Unable to answer Pain Effect on Sleep: 1 Pain Interference with Therapy: 1 Pain Interference w/Day-to-Day: 1 Mental Status Patient Orientation: Person, Place, Situation Transfers SCALE: Activities may be completed with or without assistive devices. 2-Sqodwtlmfz-swwaiqj completes the activity by him/herself with no assistance from a helper. 5-Set-up or Clean-up Assistance-helper sets up or cleans up; patient completes activity. [place] assists only prior to or following the activity. 4-Supervision or Touching Assistance-helper provides verbal cues and/or touching/steadying and/or contact guard assistance as patient completes activity. Assistance may be provided throughout the activity or intermittently. 3-Partial/Moderate Assistance-helper does LESS THAN HALF the effort. [place] lifts, holds or supports trunk or limbs, but provides less than half the effort. 2-Substantial/Maximal Assistance-helper does MORE THAN HALF the effort. [place] lifts or holds trunk or limbs and provides more than half the effort. 8-Pfzmpmmii-ohievb does ALL the effort. Patient does none of the effort to complete the activity. Or, the assistance of 2 or more helpers is required for the patient to complete the activity. If activity was not attempted, code reason: 7-Patient Refused. 9-Not Applicable-not attempted and the patient did not perform the activity before the current illness, exacerbation or injury. 10-Not Attempted due to Environmental Limitations-(lack of equipment, weather restraints, etc.). 88-Not Attempted due to Medical Conditions or Safety Concerns. Weight Bearing Right Lower Extremity: Right Weight Bearing/Tolerated Heel Weight bearing only. Patient has a orthopedic shoe to decrease forefoot wt. Bearing, however stepson reports it is at home. Treatments Pt is able to sit up in bed and asks MUCK OPERATOR to assist in packing pt up for d/c tomorrow. Pt is able to complete bed mobility and TF before resting in bed at end of tx. All needs met, call light in hand. Assessment Current Status: Good Progress Pt alyse. tx well. PT Care Home Goals Supervisor Assembly Room Goals PT Care Home Goals Time Frame: Jun 19, 2022 Roll Left & Right (QC): 6 Sit to Lying (QC): 6 Lying-Sitting on Side/Bed(QC): 6 Sit to Stand (QC): 6 Chair/Inp-gu-Pmrmf Xfer(QC): 6 Toilet Transfer (QC): 6 Car Transfer (QC): 6 Does the Patient Walk: Yes Walk 10 feet (QC): 6 Walk 50ft with 2 Turns (QC): 6 Walk 150 ft (QC): 6 Walking 10ft on Uneven Surface: 6 1 Step (curb) (QC): 6 4 Steps (QC): 4 12 Steps (QC): 4 Picking up an Object (QC): 6 Does the Pt use WC or Scooter?: No Wheel 50 feet with 2 turns (QC: 9 Wheel 150 feet: 9 PT Plan Treatment/Plan Treatment Plan: Continue Plan of Care Treatment Plan: Bed Mobility, Education, Functional Activity Segun, Functional Strength, Group Therapy, Gait, Safety, Therapeutic Exercise, Transfers Treatment Duration: Jul 17, 2022 Frequency: At least 5 of 7 days/Wk (IRF) Estimated Hrs Per Day: 1.5 hours per day Patient and/or Family Agrees t: Yes Time Time In: 1405 Time Out: 1425 DATE: Jun 15, 2022 Total Billed Treatment Time: 20 Total Billed Treatment 1, SRIDHAR (20m) IRAJ ESCUDERO PTA Jun 15, 2022 15:02
[2022-06-15 20:00] VITALS: BP 147/63
[2022-06-15] MEDS: TOLTERODINE LA 2 MG (DETROL LA) CAP PO SCH (20:49)
[2022-06-15] MEDS: PRAMIPEXOLE 0.125 MG (MIRAPEX) TABLET PO SCH (20:49)
[2022-06-15] MEDS: LORATADINE (CLARITIN) 10 MG TAB PO SCH (20:50)
[2022-06-15] MEDS: MONTELUKAST 10 MG (SINGULAIR) TAB PO SCH (20:50)
[2022-06-15] MEDS: MELATONIN 3 MG TABLET PO PRN (21:08)
[2022-06-16] MEDS: inSUlin ASPART (NovoLOG) 1 UNIT/0.01 ML (CHARGE PER UNIT) SC SCH (05:45)
[2022-06-16] MEDS ORDERED: TOLT2CAP PO (06:20)
[2022-06-16] MEDS ORDERED: MGX400T PO (06:20)
[2022-06-16] MEDS ORDERED: MULT-1137 PO (06:20)
[2022-06-16] MEDS ORDERED: INSU100I14 SQ (06:20)
[2022-06-16] MEDS ORDERED: SIME80TA16 PO (06:20)
[2022-06-16] MEDS ORDERED: INSU100V5 SQ (06:20)
[2022-06-16] MEDS ORDERED: MONT-40 PO (06:20)
[2022-06-16] MEDS ORDERED: LORA10TA7 PO (06:20)
--- NOTE | 2022-06-16 06:21 | D/C HH Face to Face Order ---
D/C Face to Face Orders Reconcile Patient Problems Problems Reviewed?: Yes Instructions for Patient Via [facility], Patient Instructions/FollowUp: PCP Dr Gold in 1 week Physician to follow Patient: Alla Discharge Diet for Home: ADA Diet Patient Problems: CVA DM Patient Data-Allergies,Ht & Wt Patient Allergies: Coded Allergies: No Known Allergies (Verified Allergy, Unknown, 06/07/22) Home Health Need/Face to Face Date of Face to Face: Jun 16, 2022 Clinical Findings: Instability, Muscle weakness I have seen Pt [id number]: Yes Discharged To: Home Diagnosis/Conditions: CVA Patient is Homebound due to: Tatyana fall risk due to instabilty, Muscle weakness Homebound Status Due to the above stated illness, injury or surgical procedure (medical condition or diagnosis) and associated clinical findings, the patient is homebound because of his/her inability to leave home except with aid of a supportive device and/or person AND leaving the home requires a considerable and taxing effort or is medically contraindicated. Pt req the following assistanc: Gurvinder Home Health Nursing Orders Home Health Services Order: Java Designer-Evaluate & Treat, Physical Therapy-Evaluate & Treat Certify Stmt I certify that this patient is under my care and that I, a nurse practitioner or a physician; a surgical dental assistant working with me, had a face to face encounter that - meets the physician face to face encounter requirements with this patient as dated. RAJESH LATIF DO Jun 16, 2022 06:21
--- NOTE | 2022-06-16 06:22 | Discharge Summary ---
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 Pacemaker Diabetes Recent type II NSTEMI Hypertension Hyperlipidemia Neuropathy GERD Chronic coccygeal pain Anxiety Elevated liver enzymes will hold statin and Zetia on 06/08/2022 Plan: Home meds Blood sugar checks Supportive care Aggressive rehab 06/05/2022: Restart OHA 06/06/2022: Monitor sugars 06/07/2022: Supportive care Continue monitoring blood sugars Hold statin and Zetia 06/08/2022: Supportive care 06/09/2022: Lovenox for DVT PPx 06/10/2022: DC Lovenox due to hematoma abdominal wall 06/11/2022: Decrease OHA 06/12/2022: Stop OHA Start insulin 06/13/2022: Blood sugars are improved 06/14/2022: Monitor sugars Insulin going well 06/15/2022: Monitor sugars DC tomorrow (1) Acute ischemic stroke (2) TIA (transient ischemic attack) (3) Expressive aphasia (4) NSTEMI (non-ST elevated myocardial infarction) (5) Pacemaker (6) Hypertension (7) Amputation of toe of right foot (8) Uncontrolled diabetes mellitus Status: Acute RAJESH LATIF DO Discharge Summary Discharge Physical Examination Allergies: Coded Allergies: No Known Allergies (Verified Allergy, Unknown, 06/07/22) Vitals & I&Os Vital Signs Date Time Temp Pulse Resp B/P (MAP) Pulse Ox O2 Delivery O2 Flow Rate FiO2 06/16/22 10:00 36.6 87 18 134/83 99 Room Air General Appearance: Alert, Oriented X3, Cooperative Respiratory: Clear to Auscultation Cardiovascular: Regular Rate Neuro: Normal Gait, Normal Speech, Strength at 5/5 X4 Ext Psych/Mental Status: Mental Status NL Hospital Course Was the Problem List Reviewed?: Yes Pt had a 13 day hospital course after she was admitted for CVA and expressive aphasia. She was converted over to insulin at the end part of her stay with good blood sugar results. She will go to assisted living. She did participate in all therapies. She was deemed stable for discharge in improved condition. Although prognosis remains poor given her comorbidities and severe diabetes. Labs (last 24 hrs) Laboratory Tests 06/04/22 16:12: Glucometer 301H 06/04/22 20:08: Glucometer 245H 06/05/22 05:29: Glucometer 162H 06/05/22 05:30: White Blood Count 5.7, Red Blood Count 4.01, Hemoglobin 11.0L, Hematocrit 33L, Mean Corpuscular Volume 83, Mean Corpuscular Hemoglobin 27, Mean Corpuscular Hemoglobin Concent 33, Red Cell Distribution Width 14.9H, Platelet Count 291, Mean Platelet Volume 10.3, Immature Granulocyte % (Auto) 0, Neutrophils (%) (Auto) 51, Lymphocytes (%) (Auto) 24, Monocytes (%) (Auto) 18H, Eosinophils (%) (Auto) 6, Basophils (%) (Auto) 1, Neutrophils # (Auto) 3.0, Lymphocytes # (Auto) 1.4, Monocytes # (Auto) 1.0, Eosinophils # (Auto) 0.3, Basophils # (Auto) 0.1, Immature Granulocyte # (Auto) 0.0, Sodium Level 137, Potassium Level 3.6, Chloride Level 104, Carbon Dioxide Level 21, Anion Gap 12, Blood Urea Nitrogen 10, Creatinine 0.67, Estimat Glomerular Filtration Rate 88, BUN/Creatinine Ratio 15, Glucose Level 181H, Calcium Level 8.8, Corrected Calcium 9.5, Total Bilirubin 0.3, Aspartate Amino Transf (AST/SGOT) 40H, Alanine Aminotransferase (ALT/SGPT) 43, Alkaline Phosphatase 144H, Total Protein 6.0L, Albumin 3.1L 06/05/22 11:00: Glucometer 278H 06/05/22 15:46: Glucometer 182H 06/05/22 20:43: Glucometer 178H 06/06/22 06:00: Glucometer 137H 06/06/22 11:02: Glucometer 273H 06/06/22 16:01: Glucometer 220H 06/06/22 20:34: Glucometer 251H 06/07/22 05:34: Glucometer 133H 06/07/22 06:00: White Blood Count 6.7, Red Blood Count 3.89, Hemoglobin 10.4L, Hematocrit 32L, Mean Corpuscular Volume 83, Mean Corpuscular Hemoglobin 27, Mean Corpuscular Hemoglobin Concent 32, Red Cell Distribution Width 15.1H, Platelet Count 332, Mean Platelet Volume 10.2, Immature Granulocyte % (Auto) 0, Neutrophils (%) (Auto) 64, Lymphocytes (%) (Auto) 16, Monocytes (%) (Auto) 13H, Eosinophils (%) (Auto) 6, Basophils (%) (Auto) 0, Neutrophils # (Auto) 4.3, Lymphocytes # (Auto) 1.1, Monocytes # (Auto) 0.9, Eosinophils # (Auto) 0.4H, Basophils # (Auto) 0.0, Immature Granulocyte # (Auto) 0.0, Sodium Level 136, Potassium Level 4.1, Chloride Level 104, Carbon Dioxide Level 22, Anion Gap 10, Blood Urea Nitrogen 14, Creatinine 0.70, Estimat Glomerular Filtration Rate 87, BUN/Creatinine Ratio 20, Glucose Level 134H, Calcium Level 9.0, Corrected Calcium 9.8, Total Bilirubin 0.3, Aspartate Amino Transf (AST/SGOT) 148H, Alanine Aminotransferase (ALT/SGPT) 155H, Alkaline Phosphatase 206H, Total Protein 6.1L, Albumin 3.0L 06/07/22 10:39: Glucometer 245H 06/07/22 15:02: Glucometer 103 06/07/22 20:08: Glucometer 158H 06/08/22 05:28: Glucometer 120H 06/08/22 10:50: Glucometer 266H 06/08/22 15:16: Glucometer 94 06/08/22 20:35: Glucometer 178H 06/09/22 05:44: Glucometer 115H 06/09/22 10:57: Glucometer 245H 06/09/22 15:32: Glucometer 174H 06/09/22 20:00: Glucometer 207H 06/10/22 05:53: Glucometer 104 06/10/22 11:03: Glucometer 207H 06/10/22 15:09: Glucometer 149H 06/10/22 20:10: Glucometer 232H 06/10/22 23:12: Glucometer 44*L 06/10/22 23:31: Glucometer 56*L 06/10/22 23:52: Glucometer 54*L 06/11/22 00:25: Glucometer 76 06/11/22 05:39: Glucometer 164H 06/11/22 11:07: Glucometer 320H 06/11/22 15:16: Glucometer 84 06/11/22 16:33: Glucometer 51*L 06/11/22 18:51: Glucometer 221H 06/11/22 20:33: Glucometer 320H 06/12/22 06:08: Glucometer 141H 06/12/22 06:34: White Blood Count 5.6, Red Blood Count 4.13, Hemoglobin 10.9L, Hematocrit 35, Mean Corpuscular Volume 84, Mean Corpuscular Hemoglobin 26, Mean Corpuscular Hemoglobin Concent 32, Red Cell Distribution Width 15.0H, Platelet Count 412H, Mean Platelet Volume 9.7, Immature Granulocyte % (Auto) 0, Neutrophils (%) (Auto) 53, Lymphocytes (%) (Auto) 26, Monocytes (%) (Auto) 14H, Eosinophils (%) (Auto) 6, Basophils (%) (Auto) 1, Neutrophils # (Auto) 3.0, Lymphocytes # (Auto) 1.4, Monocytes # (Auto) 0.8, Eosinophils # (Auto) 0.3, Basophils # (Auto) 0.1, Immature Granulocyte # (Auto) 0.0, Prothrombin Time 12.7, INR Comment 0.9, Sodium Level 136, Potassium Level 4.6, Chloride Level 101, Carbon Dioxide Level 24, Anion Gap 11, Blood Urea Nitrogen 19H, Creatinine 0.67, Estimat Glomerular Filtration Rate 88, BUN/Creatinine Ratio 28, Glucose Level 163H, Calcium Level 9.5, Corrected Calcium 10.1, Total Bilirubin 0.2, Gamma Glutamyl Transpeptidase 233H, Aspartate Amino Transf (AST/SGOT) 28, Alanine Aminotransferase (ALT/SGPT) 66H, Alkaline Phosphatase 225H, Total Protein 6.8, Albumin 3.3 06/12/22 11:35: Glucometer 249H 06/12/22 15:48: Glucometer 220H 06/12/22 20:12: Glucometer 142H 06/13/22 06:16: Glucometer 73 06/13/22 08:32: Glucometer 212H 06/13/22 11:22: Glucometer 227H 06/13/22 16:37: Glucometer 136H 06/13/22 19:30: Glucometer 313H 06/14/22 05:50: Glucometer 87 06/14/22 07:58: Glucometer 109 06/14/22 10:53: Glucometer 207H 06/14/22 15:57: Glucometer 101 06/14/22 20:53: Glucometer 213H 06/15/22 05:58: Glucometer 117H 06/15/22 11:30: Glucometer 247H 06/15/22 16:57: Glucometer 134H 06/15/22 20:55: Glucometer 249H 06/16/22 05:35: Glucometer 150H Pending Labs Laboratory Tests 06/04/22 16:12: Glucometer 301 06/04/22 20:08: Glucometer 245 06/05/22 05:29: Glucometer 162 06/05/22 05:30: White Blood Count 5.7, Red Blood Count 4.01, Hemoglobin 11.0, Hematocrit 33, Mean Corpuscular Volume 83, Mean Corpuscular Hemoglobin 27, Mean Corpuscular Hemoglobin Concent 33, Red Cell Distribution Width 14.9, Platelet Count 291, Mean Platelet Volume 10.3, Immature Granulocyte % (Auto) 0, Neutrophils (%) (Auto) 51, Lymphocytes (%) (Auto) 24, Monocytes (%) (Auto) 18, Eosinophils (%) ( Auto) 6, Basophils (%) (Auto) 1, Neutrophils # (Auto) 3.0, Lymphocytes # (Auto) 1.4, Monocytes # (Auto) 1.0, Eosinophils # (Auto) 0.3, Basophils # (Auto) 0.1, Immature Granulocyte # (Auto) 0.0, Sodium Level 137, Potassium Level 3.6, Chloride Level 104, Carbon Dioxide Level 21, Anion Gap 12, Blood Urea Nitrogen 10, Creatinine 0.67, Estimat Glomerular Filtration Rate 88, BUN/Creatinine Ratio 15, Glucose Level 181, Calcium Level 8.8, Corrected Calcium 9.5, Total Bilirubin 0.3, Aspartate Amino Transf (AST/SGOT) 40, Alanine Aminotransferase (ALT/SGPT) 43, Alkaline Phosphatase 144, Total Protein 6.0, Albumin 3.1 06/05/22 11:00: Glucometer 278 06/05/22 15:46: Glucometer 182 06/05/22 20:43: Glucometer 178 06/06/22 06:00: Glucometer 137 06/06/22 11:02: Glucometer 273 06/06/22 16:01: Glucometer 220 06/06/22 20:34: Glucometer 251 06/07/22 05:34: Glucometer 133 06/07/22 06:00: White Blood Count 6.7, Red Blood Count 3.89, Hemoglobin 10.4, Hematocrit 32, Mean Corpuscular Volume 83, Mean Corpuscular Hemoglobin 27, Mean Corpuscular Hemoglobin Concent 32, Red Cell Distribution Width 15.1, Platelet Count 332, Mean Platelet Volume 10.2, Immature Granulocyte % (Auto) 0, Neutrophils (%) (Auto) 64, Lymphocytes (%) (Auto) 16, Monocytes (%) (Auto) 13, Eosinophils (%) (Auto) 6, Basophils (%) (Auto) 0, Neutrophils # (Auto) 4.3, Lymphocytes # (Auto) 1.1, Monocytes # (Auto) 0.9, Eosinophils # (Auto) 0.4, Basophils # (Auto) 0.0, Immature Granulocyte # (Auto) 0.0, Sodium Level 136, Potassium Level 4.1, Chloride Level 104, Carbon Dioxide Level 22, Anion Gap 10, Blood Urea Nitrogen 14, Creatinine 0.70, Estimat Glomerular Filtration Rate 87, BUN/Creatinine Ratio 20, Glucose Level 134, Calcium Level 9.0, Corrected Calcium 9.8, Total Bilirubin 0.3, Aspartate Amino Transf (AST/SGOT) 148, Alanine Aminotransferase (ALT/SGPT) 155, Alkaline Phosphatase 206, Total Protein 6.1, Albumin 3.0 06/07/22 10:39: Glucometer 245 06/07/22 15:02: Glucometer 103 06/07/22 20:08: Glucometer 158 06/08/22 05:28: Glucometer 120 06/08/22 10:50: Glucometer 266 06/08/22 15:16: Glucometer 94 06/08/22 20:35: Glucometer 178 06/09/22 05:44: Glucometer 115 06/09/22 10:57: Glucometer 245 06/09/22 15:32: Glucometer 174 06/09/22 20:00: Glucometer 207 06/10/22 05:53: Glucometer 104 06/10/22 11:03: Glucometer 207 06/10/22 15:09: Glucometer 149 06/10/22 20:10: Glucometer 232 06/10/22 23:12: Glucometer 44 06/10/22 23:31: Glucometer 56 06/10/22 23:52: Glucometer 54 06/11/22 00:25: Glucometer 76 06/11/22 05:39: Glucometer 164 06/11/22 11:07: Glucometer 320 06/11/22 15:16: Glucometer 84 06/11/22 16:33: Glucometer 51 06/11/22 18:51: Glucometer 221 06/11/22 20:33: Glucometer 320 06/12/22 06:08: Glucometer 141 06/12/22 06:34: White Blood Count 5.6, Red Blood Count 4.13, Hemoglobin 10.9, Hematocrit 35, Mean Corpuscular Volume 84, Mean Corpuscular Hemoglobin 26, Mean Corpuscular Hemoglobin Concent 32, Red Cell Distribution Width 15.0, Platelet Count 412, Mean Platelet Volume 9.7, Immature Granulocyte % (Auto) 0, Neutrophils (%) (Auto) 53, Lymphocytes (%) (Auto) 26, Monocytes (%) (Auto) 14, Eosinophils (%) ( Auto) 6, Basophils (%) (Auto) 1, Neutrophils # (Auto) 3.0, Lymphocytes # (Auto) 1.4, Monocytes # (Auto) 0.8, Eosinophils # (Auto) 0.3, Basophils # (Auto) 0.1, Immature Granulocyte # (Auto) 0.0, Prothrombin Time 12.7, INR Comment 0.9, Sodium Level 136, Potassium Level 4.6, Chloride Level 101, Carbon Dioxide Level 24, Anion Gap 11, Blood Urea Nitrogen 19, Creatinine 0.67, Estimat Glomerular Filtration Rate 88, BUN/Creatinine Ratio 28, Glucose Level 163, Calcium Level 9.5, Corrected Calcium 10.1, Total Bilirubin 0.2, Gamma Glutamyl Transpeptidase 233, Aspartate Amino Transf (AST/SGOT) 28, Alanine Aminotransferase (ALT/SGPT) 66, Alkaline Phosphatase 225, Total Protein 6.8, Albumin 3.3 06/12/22 11:35: Glucometer 249 06/12/22 15:48: Glucometer 220 06/12/22 20:12: Glucometer 142 06/13/22 06:16: Glucometer 73 06/13/22 08:32: Glucometer 212 06/13/22 11:22: Glucometer 227 06/13/22 16:37: Glucometer 136 06/13/22 19:30: Glucometer 313 06/14/22 05:50: Glucometer 87 06/14/22 07:58: Glucometer 109 06/14/22 10:53: Glucometer 207 06/14/22 15:57: Glucometer 101 06/14/22 20:53: Glucometer 213 06/15/22 05:58: Glucometer 117 06/15/22 11:30: Glucometer 247 06/15/22 16:57: Glucometer 134 06/15/22 20:55: Glucometer 249 06/16/22 05:35: Glucometer 150 Discharge Home Medications: Active Scripts Active Novolog Flexpen (Insulin Aspart) 100 Unit/Ml (3 Ml) Solution 4 Units SQ AC hold for sugar less than 140 Tab-A-Leo Multivit with Iron (Multivitamin/Iron/Folic Acid) 18 Mg Iron-400 Mcg Tablet 1 Ea PO DAILY@0700 Detrol LA (Tolterodine Tartrate) 2 Mg Cap 4 Mg PO HS Levemir (Insulin Determir) 100 Unit/Ml Soln 10 Unit SQ BID Simethicone 80 Mg Tab.chew 80 Mg PO PCHS PRN Magnesium Oxide 400 Mg (241.3 Mg Magnesium) Tablet 400 Mg PO BID WITH MEALS Montelukast Sodium 10 Mg Tablet 10 Mg PO HS Loratadine 10 Mg Tablet 10 Mg PO HS Reported Tramadol HCl 50 Mg Tablet 50 Mg PO Q12H PRN Pravastatin Sodium 80 Mg Tablet 80 Mg PO DAILY Mirapex (Pramipexole) 0.125 Mg Tablet 0.25 Mg PO HS Omeprazole 20 Mg Capsule.dr 20 Mg PO DAILY Metformin HCl 1,000 Mg Tablet 1,000 Mg PO BID WITH MEALS Magnesium 200 Mg Tablet 400 Mg PO BID Lisinopril 40 Mg Tablet 40 Mg PO DAILY Victoza 2-Devin (Liraglutide) 0.6 Mg/0.1 Ml (18 Mg/3 Ml) Pen.injctr 1.2 Mg SQ DAILY Proctocort (Hydrocortisone) 1 % Cream..g. 28.4 Gm TP TID Hydrocodone-Acetamin 5-325 mg (Hydrocodone/Acetaminophen) 5 Mg-325 Mg Tablet 1 Tab PO Q4H PRN Neurontin (Gabapentin) 300 Mg Capsule 300 Mg PO TID Fluticasone Propionate 50 Mcg/Actuation [place].susp 16 Gm NS Ezetimibe 10 Mg Tablet 10 Mg PO DAILY Escitalopram Oxalate 10 Mg Tablet 10 Mg PO HS Plavix (Clopidogrel Bisulfate) 75 Mg Tablet 75 Mg PO DAILY Cholecalciferol (Cholecalciferol (Vitamin D3)) 1 Gm Crystals 25 Mcg PO DAILY [LC-Wl-Ktlqii-Zinc] 1 Tab PO DAILY Aspirin 81 Mg Tab.chew 81 Mg PO DAILY Instructions to patient/family Please see electronic discharge instructions given to patient. Diagnosis/Problems Diagnosis/Problems (1) Acute ischemic stroke (2) TIA (transient ischemic attack) (3) Expressive aphasia (4) NSTEMI (non-ST elevated myocardial infarction) (5) Pacemaker (6) Hypertension (7) Amputation of toe of right foot (8) Uncontrolled diabetes mellitus Status: Acute Clinical Quality Measures DVT/VTE Risk/Contraindication: Contraindications-Pharm: Other *list below* Other: hematoma RAJSEH LATIF DO Jun 16, 2022 06:22
[2022-06-16] MEDS: MULTIVIT W/MINERALS TAB (THERAGRAN M) PO SCH (06:34)
[2022-06-16] MEDS: CATHETER FLUSH 10 ML SYR IVP SCH (06:34)
[2022-06-16 07:19] VITALS: BP 134/83
[2022-06-16] MEDS: HYDROCORTISONE 1% CREAM 30 GM TUBE TP SCH (09:00)
[2022-06-16] MEDS: PANTOPRAZOLE 20 MG TABLET (PROTONIX) PO SCH (09:00)
[2022-06-16] MEDS: VITAMIN D3 25 MCG (1,000 UNITS) TABLET PO SCH (09:00)
[2022-06-16] MEDS: CLOPIDOGREL 75 MG (PLAVIX) TABLET PO SCH (09:00)
[2022-06-16] MEDS: ASPIRIN 81 MG CHEW (CHILDREN'S ASA) PO SCH (09:00)
[2022-06-16] MEDS: SIMETHICONE 80 MG (MYLICON) CHEW PO SCH (09:00)
[2022-06-16] MEDS: lisINopril 40 MG (PRINIVIL) TABLET PO SCH (09:00)
[2022-06-16] MEDS: GABAPENTIN 300 MG (NEURONTIN) CAP PO SCH (09:00)
[2022-06-16] MEDS: metFORMIN 500 MG (GLUCOPHAGE) TAB PO SCH (09:00)
[2022-06-16] MEDS: MAGNESIUM OXIDE (MAG-OX)400 MG TAB PO SCH (09:00)
[2022-06-16] MEDS: FLUTICASONE NASAL SPRAY (FLONASE) 16 GM BTL NS SCH (09:00)
[2022-06-16 10:00] VITALS: BP 134/83
--- NOTE | 2022-06-16 10:21 | Therapy Team Discharge Summary ---
Therapy Discharge Summary Discharge Recommendations Date of Discharge Physical Therapy Roll Left to Right (QC): 6 Sit to Lying (QC): 6 Lying to Sitting/Side of Bed(Q: 4 Sit to Stand (QC): 5 Chair/Jzg-zs-Qkcqf Xfer(QC): 4 Toilet Transfer (QC): 5 Car Transfer (QC): 3 Does the Patient Walk: Yes Mode of Locomotion: Walk Anticipated Mode of Locomotion: Walk Walk 10 feet (QC): 5 Walk 50 ft with 2 Turns(QC): 5 Walk 150 ft (QC): 5 Walking 10ft on uneven surface: 3 Distance: 150 Gait Assistive Device: Walker 4 Wheeled Does the Pt Use a Wheelchair: No Wheelchair Distance: 0 Wheel 50 ft with 2 turns (QC): 9 Wheel 150 ft (QC): 9 #of Steps: 4 1 Step (curb) (QC): 3 4 Steps (QC): 4 12 Steps (QC): 3 Balance Sitting Static: Good Balance Sitting Dynamic: Good Balance-Standing Static: Fair Picking up an Object (QC): 3 Occupational Therapy Decreased Activ Tolerance, Decreased Safety Aware, Decreased UE Strength, Impaired Cognition, Impaired Coordination, Impaired Funct Balance, Impaired I ADL's, Impaired Self-Care Skills Eating (QC): 6 Oral Hygiene (QC): 4 Shower/Bathe Self (QC): 6 Upper Body Dressing (QC): 6 Lower Body Dressing (QC): 6 On/Off Footwear (QC): 6 Toileting Hygiene (QC): 4 PT Detention Goals Intellectual Property Legal Assistant Goals PT Detention Goals Time Frame: Jun 19, 2022 Roll Left to Right (QC): 6 Sit to Lying (QC): 6 Lying-Sitting on Side/Bed(QC): 6 Sit to Stand (QC): 6 Chair/Yux-bv-Krazq Xfer(QC): 6 Toilet/Commode Transfer (QC): 6 Car Transfer (QC): 6 Does the Patient Walk: Yes Walk 10 feet (QC): 6 Walk 10ft-Uneven Surface(QC): 6 Walk 50ft with 2 Turns (QC): 6 Walk 150 ft (QC): 6 Does the Pt use WC or Scooter?: No Wheel 50 feet with 2 turns (QC: 9 Wheel 150 feet: 9 1 Step (curb) (QC): 6 4 Steps (QC): 4 12 Steps (QC): 4 Picking up an Object (QC): 6 OT Intellectual Property Legal Assistant Goals Detention Goals Time Frame: Jun 16, 2022 Acute change in mental status: 0 Inattention: 0 Disorganized thinkin Altered level of consciousness: 0 Eating (QC): 6 (met) Oral Hygiene (QC): 6 (Met in sitting not met in standing) Toileting Hygiene (QC): 6 (not met) Shower/Bathe Self (QC): 6 (met 100% sitting) Upper Body Dressing (QC): 6 (met) Lower Body Dressing (QC): 6 (met) On/Off Footwear (QC): 6 (met) Additional Goals: 1-Demonstrate ADL Tasks, 2-Verbalize Understanding, 3- ImproveStrength/Segun 1=Demonstrate adherence to instructed precautions during ADL tasks. 2=Patient will verbalize/demonstrate understanding of assistive devices/modifications for ADL. 3=Patient will improve strength/tolerance for activity to enable patient to perform ADL's. Speech Detention Goals Intellectual Property Legal Assistant Goals 1. The patient will demonstrate improved word-finding abilities for safe discharge to the least restrictive environment. MET: The patient demonstrated improved anomia by implementing word-finding strategies discussed and reviewed throughout functional skilled speech pathology treatment. The speech pathologist continues to recommend speech pathology services post discharge, as able. Time Frame: One Week. MARIANNA HUMPHRIES Jun 16, 2022 10:21
--- NOTE | 2022-06-16 12:01 | Therapy Team Discharge Summary ---
Therapy Discharge Summary Discharge Recommendations Date of Discharge Jun 16, 2022 at 10:00 Therapy D/C Recommendations: Home w/ Family Support, Occupational Therapy Home Care Physical Therapy Roll Left to Right (QC): 6 Sit to Lying (QC): 6 Lying to Sitting/Side of Bed(Q: 4 Sit to Stand (QC): 5 Chair/Uty-tr-Oqmpz Xfer(QC): 4 Toilet Transfer (QC): 5 Car Transfer (QC): 3 Does the Patient Walk: Yes Mode of Locomotion: Walk Anticipated Mode of Locomotion: Walk Walk 10 feet (QC): 5 Walk 50 ft with 2 Turns(QC): 5 Walk 150 ft (QC): 5 Walking 10ft on uneven surface: 3 Distance: 150 Gait Assistive Device: Walker 4 Wheeled Does the Pt Use a Wheelchair: No Wheelchair Distance: 0 Wheel 50 ft with 2 turns (QC): 9 Wheel 150 ft (QC): 9 #of Steps: 4 1 Step (curb) (QC): 3 4 Steps (QC): 4 12 Steps (QC): 3 Balance Sitting Static: Good Balance Sitting Dynamic: Good Balance-Standing Static: Fair Picking up an Object (QC): 3 Occupational Therapy Pt admitted to ARU with CVA. At time of evaluation, she was CGA for toileting, lower body dressing, and bathing, SBA for footwear, upper body dressing, and oral care and set up for eating. During her rehab stay, OT focused on safety, balance, endurance, strengthening, FM coordination, energy conservation strategies and overall cognition in order to improve performance and independence in adls and functional transfers.Pt made fair progress and met all of her halfway goal except toileting. See below for current levels of assistance. Pt has now discharged from this facility and will be discharged from OT at this time. Decreased Activ Tolerance, Decreased Safety Aware, Decreased UE Strength, Impaired Cognition, Impaired Coordination, Impaired Funct Balance, Impaired I A DL's, Impaired Self-Care Skills Eating (QC): 6 Oral Hygiene (QC): 4 Shower/Bathe Self (QC): 6 Upper Body Dressing (QC): 6 Lower Body Dressing (QC): 6 On/Off Footwear (QC): 6 Toileting Hygiene (QC): 4 PT Inside Sales Account Manager Goals Inside Sales Account Manager Goals PT Fdc Goals Time Frame: Jun 19, 2022 Roll Left to Right (QC): 6 Sit to Lying (QC): 6 Lying-Sitting on Side/Bed(QC): 6 Sit to Stand (QC): 6 Chair/Pki-ck-Vjaog Xfer(QC): 6 Toilet/Commode Transfer (QC): 6 Car Transfer (QC): 6 Does the Patient Walk: Yes Walk 10 feet (QC): 6 Walk 10ft-Uneven Surface(QC): 6 Walk 50ft with 2 Turns (QC): 6 Walk 150 ft (QC): 6 Does the Pt use WC or Scooter?: No Wheel 50 feet with 2 turns (QC: 9 Wheel 150 feet: 9 1 Step (curb) (QC): 6 4 Steps (QC): 4 12 Steps (QC): 4 Picking up an Object (QC): 6 OT Inside Sales Account Manager Goals Fdc Goals Time Frame: Jun 16, 2022 Acute change in mental status: 0 Inattention: 0 Disorganized thinkin Altered level of consciousness: 0 Eating (QC): 6 (met) Oral Hygiene (QC): 6 (Met in sitting not met in standing) Toileting Hygiene (QC): 6 (not met) Shower/Bathe Self (QC): 6 (met 100% sitting) Upper Body Dressing (QC): 6 (met) Lower Body Dressing (QC): 6 (met) On/Off Footwear (QC): 6 (met) Additional Goals: 1-Demonstrate ADL Tasks, 2-Verbalize Understanding, 3- ImproveStrength/Segun 1=Demonstrate adherence to instructed precautions during ADL tasks. 2=Patient will verbalize/demonstrate understanding of assistive devices/modifications for ADL. 3=Patient will improve strength/tolerance for activity to enable patient to perform ADL's. Speech Fdc Goals Inside Sales Account Manager Goals 1. The patient will demonstrate improved word-finding abilities for safe discharge to the least restrictive environment. MET: The patient demonstrated improved anomia by implementing word-finding strategies discussed and reviewed throughout functional skilled speech pathology treatment. The speech pathologist continues to recommend speech pathology services post discharge, as able. Time Frame: One Week. Anne Marie Luu OT Jun 16, 2022 12:01
--- NOTE | 2022-06-16 15:03 | Therapy Team Discharge Summary ---
Therapy Discharge Summary Discharge Recommendations Date of Discharge Jun 16, 2022 at 10:00 Therapy D/C Recommendations: Home w/ Family Support, Occupational Therapy Home Care Physical Therapy Patient came to rehab post CVA. Upon evaluation patient performed rolling and supine <-> sit with CGA/SBA, sit <-> stand and transfers min/mod assist, car transfer min/mod assist, ambulated 150' with a rolling walker with min/mod assist (including 50' with at least 2 turns of 90 degrees and 10' over an uneven surface), went up and down 12 steps using 2 handrails with min/mod assist, and picked up an object from the floor with min/mod assist. Patient has been performing bed mobility and transfer training, balance and endurance training, functional strengthening, stair training, gait training, and education. 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 Now, patient performs rolling and supine <-> sit with setup, sit <-> stand and transfers with setup, ambulates 500' with a rolling walker with setup (including 50' with at least 2 turns of 90 degrees). Patient has been discharged from this facility and will be discharged from PT at this time. Roll Left to Right (QC): 6 Sit to Lying (QC): 6 Lying to Sitting/Side of Bed(Q: 4 Sit to Stand (QC): 5 Chair/Bwk-dk-Lossx Xfer(QC): 4 Toilet Transfer (QC): 5 Car Transfer (QC): 3 Does the Patient Walk: Yes Mode of Locomotion: Walk Anticipated Mode of Locomotion: Walk Walk 10 feet (QC): 5 Walk 50 ft with 2 Turns(QC): 5 Walk 150 ft (QC): 5 Walking 10ft on uneven surface: 3 Distance: 150 Gait Assistive Device: Walker 4 Wheeled Does the Pt Use a Wheelchair: No Wheelchair Distance: 0 Wheel 50 ft with 2 turns (QC): 9 Wheel 150 ft (QC): 9 #of Steps: 4 1 Step (curb) (QC): 3 4 Steps (QC): 4 12 Steps (QC): 3 Balance Sitting Static: Good Balance Sitting Dynamic: Good Balance-Standing Static: Fair Picking up an Object (QC): 3 Occupational Therapy Decreased Activ Tolerance, Decreased Safety Aware, Decreased UE Strength, Impaired Cognition, Impaired Coordination, Impaired Funct Balance, Impaired I ADL's, Impaired Self-Care Skills Eating (QC): 6 Oral Hygiene (QC): 4 Shower/Bathe Self (QC): 6 Upper Body Dressing (QC): 6 Lower Body Dressing (QC): 6 On/Off Footwear (QC): 6 Toileting Hygiene (QC): 4 PT Certified Paralegal Goals Certified Paralegal Goals PT Penitentiary Goals Time Frame: Jun 19, 2022 Roll Left to Right (QC): 6 Sit to Lying (QC): 6 Lying-Sitting on Side/Bed(QC): 6 Sit to Stand (QC): 6 Chair/Xoq-vb-Hrrrp Xfer(QC): 6 Toilet/Commode Transfer (QC): 6 Car Transfer (QC): 6 Does the Patient Walk: Yes Walk 10 feet (QC): 6 Walk 10ft-Uneven Surface(QC): 6 Walk 50ft with 2 Turns (QC): 6 Walk 150 ft (QC): 6 Does the Pt use WC or Scooter?: No Wheel 50 feet with 2 turns (QC: 9 Wheel 150 feet: 9 1 Step (curb) (QC): 6 4 Steps (QC): 4 12 Steps (QC): 4 Picking up an Object (QC): 6 OT Penitentiary Goals Certified Paralegal Goals Time Frame: Jun 16, 2022 Acute change in mental status: 0 Inattention: 0 Disorganized thinkin Altered level of consciousness: 0 Eating (QC): 6 (met) Oral Hygiene (QC): 6 (Met in sitting not met in standing) Toileting Hygiene (QC): 6 (not met) Shower/Bathe Self (QC): 6 (met 100% sitting) Upper Body Dressing (QC): 6 (met) Lower Body Dressing (QC): 6 (met) On/Off Footwear (QC): 6 (met) Additional Goals: 1-Demonstrate ADL Tasks, 2-Verbalize Understanding, 3- ImproveStrength/Segun 1=Demonstrate adherence to instructed precautions during ADL tasks. 2=Patient will verbalize/demonstrate understanding of assistive devices/modifications for ADL. 3=Patient will improve strength/tolerance for activity to enable patient to perform ADL's. Speech Penitentiary Goals Penitentiary Goals 1. The patient will demonstrate improved word-finding abilities for safe discharge to the least restrictive environment. MET: The patient demonstrated improved anomia by implementing word-finding strategies discussed and reviewed throughout functional skilled speech pathology treatment. The speech pathologist continues to recommend speech pathology services post discharge, as able. Time Frame: One Week. SARA OSORIO PT Jun 16, 2022 15:03
== END 2022-06-16 10:00 | disposition home health service (06) | DRG 56 ==
PROVIDERS: ADMIT Internal Medicine; ATTEND Internal Medicine
DX: I69.320 Aphasia following cerebral infarction (principal); I21.A1 Myocardial infarction type 2; N39.46 Mixed incontinence; N32.81 Overactive bladder; R58 Hemorrhage, not elsewhere classified; E11.649 Type 2 diabetes mellitus with hypoglycemia without coma; E11.65 Type 2 diabetes mellitus with hyperglycemia; I10 Essential (primary) hypertension; I08.0 Rheumatic disorders of both mitral and aortic valves; I27.20 Pulmonary hypertension, unspecified; E78.5 Hyperlipidemia, unspecified; F41.9 Anxiety disorder, unspecified; K21.9 Gastro-esophageal reflux disease without esophagitis; M53.3 Sacrococcygeal disorders, not elsewhere classified; E11.40 Type 2 diabetes mellitus with diabetic neuropathy, unspecified; Z95.0 Presence of cardiac pacemaker; Z79.84 Long term (current) use of oral hypoglycemic drugs; Z87.891 Personal history of nicotine dependence; Z85.42 Personal history of malignant neoplasm of other parts of uterus; Z79.4 Long term (current) use of insulin; Z89.411 Acquired absence of right great toe; T45.515A Adverse effect of anticoagulants, initial encounter
CPT/HCPCS: 36415; 80053; 82947; 82977; 85025; 85610

== ENCOUNTER 2022-09-23 17:01 | Emergency (ER) | payer MEDICARE, OTHER ==
[~2022-09-23] VITALS: Ht 165 cm; Wt 62.0 kg
[~2022-09-23 17:01] MED LIST: ACHD5005 PO; ASPI-999 PO; CHOL1CRY2 PO; CLOP-31 PO; ESCI-2 PO; EZET10TA49 PO; FLUT16SP22 NS; GABA300C PO; GLIM2TAB4 PO; GLIM4TAB5 PO; HYDR28.336 TP; INSU100I14 SQ; INSU100V5 SQ; LIRA0.6P SQ; LISI40TA9 PO; LORA10TA7 PO; MAGN200T PO; METF-399 PO; MGX400T PO; MONT-40 PO; MULT-1137 PO; OMEP20CA18 PO; PRAM0.12 PO; PRAV80TA2 PO; SIME80TA16 PO; TOLT2CAP PO; TRAM50TA3 PO; [UNRECOGNIZED DRUG - OTHER] PO
[2022-09-23] MEDS ORDERED: NS IV 1000 ML 1,000 ML IV STA (17:09)
[2022-09-23] MEDS ORDERED: ONDANSETRON 4 MG/2 ML (SDV) Z0FRAN IVP ONE ×2 (17:15→20:00)
--- NOTE | 2022-09-23 17:15 | ED GI ---
General Chief Complaint: Abdominal/GI Problems Stated Complaint: N/V ABD PAIN Nursing Triage Note: PT TO [facility] BY [facility] WITH CC OF UPPER ABD PAIN THAT STARTED AFTER BREAKFAST, VOMITING, HAS NOT FELT GOOD SINCE SHE WOKE UP. DID NOT EAT LUNCH Source of Information: Patient Exam Limitations: No Limitations History of Present Illness Date Seen by Provider: Sep 23, 2022 Time Seen by Provider: 17:12 Initial Comments Patient is 82-year-old female with a history of CVA, coronary artery disease, hypertension, diabetes, GERD who presents ED for from [facility] with abdominal pain, vomiting, short of breath. Patient was brought to ED by EMS. She states she woke up this morning not feeling well. She tried to eat lunch but did not eat. She started vomiting at least 4 times with food content and bile. Before the vomiting she had mid upper and right upper quadrant abdominal pain. Described it as a sharp and dull pain. No radiation. She started complain of shortness of breath on the way over according to EMS. EMS were concerned that patient was hyperventilating. Breathing controlled on arrival with improvment of shortness of breath. Patient has a pacemaker. Patient reports history of hernia repair in her abdomen, cholecystectomy. denies of any urinary symptoms, fever, headache, dizziness, visual changes, chest pain, cough, diarrhea. Several residents with similar symptoms Allergies and Home Medications Allergies Coded Allergies: No Known Allergies (Verified Allergy, Unknown, 06/07/22) Patient Home Medication List Home Medication List Reviewed: Yes Aspirin (Aspirin) 81 Mg Tab.chew, 81 MG PO DAILY, (Reported) Entered as Reported by: IRAJ NOONAN on 06/04/221454 Cephalexin (Cephalexin) 500 Mg Tablet, 500 MG PO BID Prescribed by: BENJI PACHECO on 09/23/222129 Cholecalciferol (Vitamin D3) (Cholecalciferol) 1 Gm Crystals, 25 MCG PO DAILY, (Reported) Entered as Reported by: IRAJ NOONAN on 06/04/22 145 Clopidogrel Bisulfate (Plavix) 75 Mg Tablet, 75 MG PO DAILY, (Reported) Entered as Reported by: IRAJ NOONAN on 06/04/22 145 Escitalopram Oxalate (Escitalopram Oxalate) 10 Mg Tablet, 10 MG PO HS, (Reported) Entered as Reported by: IRAJ NOONAN on 06/04/22 145 Ezetimibe (Ezetimibe) 10 Mg Tablet, 10 MG PO DAILY, (Reported) Entered as Reported by: IRAJ NOONAN on 06/04/22 145 Fluticasone Propionate (Fluticasone Propionate) 50 Mcg/Actuation [place].susp, 16 GM NS, (Reported) Entered as Reported by: IRAJ NOONAN on 06/04/22 145 Gabapentin (Neurontin) 300 Mg Capsule, 300 MG PO TID, (Reported) Entered as Reported by: IRAJ NOONAN on 06/04/22 145 Hydrocodone/Acetaminophen (Hydrocodone-Acetamin 5-325 mg) 5 Mg-325 Mg Tablet, 1 TAB PO Q4H PRN for PAIN-MODERATE (5-7), (Reported) Entered as Reported by: IRAJ NOONAN on 06/04/221454 Hydrocortisone (Proctocort) 1 % Cream..g., 28.4 GM TP TID, (Reported) Entered as Reported by: IRAJ NOONAN on 06/04/221454 Insulin Aspart (Novolog Flexpen) 100 Unit/Ml (3 Ml) Solution, 4 UNITS SQ AC Prescribed by: RAJESH LATIF on 06/16/22619 Insulin Determir (Levemir) 100 Unit/Ml Soln, 10 UNIT SQ BID Prescribed by: RAJESH LATIF on 06/16/22619 Liraglutide (Victoza 2-Devin) 0.6 Mg/0.1 Ml (18 Mg/3 Ml) Pen.injctr, 1.2 MG SQ DAILY, (Reported) Entered as Reported by: IRAJ NOONAN on 06/04/221454 Lisinopril (Lisinopril) 40 Mg Tablet, 40 MG PO DAILY, (Reported) Entered as Reported by: IRAJ NOONAN on 06/04/22 145 Loratadine (Loratadine) 10 Mg Tablet, 10 MG PO HS Prescribed by: RAJESH LATIF on 06/16/22619 Magnesium (Magnesium) 200 Mg Tablet, 400 MG PO BID, (Reported) Entered as Reported by: IRAJ NOONAN on 06/04/221454 Magnesium Oxide (Magnesium Oxide) 400 Mg (241.3 Mg Magnesium) Tablet, 400 MG PO BID WITH MEALS Prescribed by: RAJESH LATIF on 06/16/22619 Metformin HCl (Metformin HCl) 1,000 Mg Tablet, 1,000 MG PO BID WITH MEALS, (Reported) Entered as Reported by: IRAJ NOONAN on 06/04/221454 Montelukast Sodium (Montelukast Sodium) 10 Mg Tablet, 10 MG PO HS Prescribed by: RAJESH LATIF on 06/16/22619 Multivitamin/Iron/Folic Acid (Tab-A-Leo Multivit with Iron) 18 Mg Iron-400 Mcg Tablet, 1 EA PO DAILY@0700 Prescribed by: RAJESH LATIF on 06/16/22619 Omeprazole (Omeprazole) 20 Mg Capsule.dr, 20 MG PO DAILY, (Reported) Entered as Reported by: IRAJ NOONAN on 06/04/221454 Ondansetron (Ondansetron Odt) 4 Mg Tab.rapdis, 4 MG SL Q4H PRN for NAUSEA/VOMITING Prescribed by: BENJI PACHECO on 09/23/222115 Pramipexole (Mirapex) 0.125 Mg Tablet, 0.25 MG PO HS, (Reported) Entered as Reported by: IRAJ NOONAN on 06/04/221454 Pravastatin Sodium (Pravastatin Sodium) 80 Mg Tablet, 80 MG PO DAILY, (Reported) Entered as Reported by: IRAJ NOONAN on 06/04/221454 Simethicone (Simethicone) 80 Mg Tab.chew, 80 MG PO PCHS PRN for GAS Prescribed by: RAJESH LATIF on 06/16/22619 Tolterodine Tartrate (Detrol LA) 2 Mg Cap, 4 MG PO HS Prescribed by: RAJESH LATIF on 06/16/22619 Tramadol HCl (Tramadol HCl) 50 Mg Tablet, 50 MG PO Q12H PRN for PAIN-MODERATE (5-7), (Reported) Entered as Reported by: IRAJ NOONAN on 06/04/22 145 [RJ-Do-Wdzuie-Zinc] , 1 TAB PO DAILY, (Reported) Entered as Reported by: IRAJ NOONAN on 06/04/221454 Review of Systems Review of Systems Constitutional: No chills, No diaphoresis, No fever; malaise, weakness EENTM: No Eye Pain Respiratory: Denies Cough; Shortness of Air Cardiovascular: Denies Chest Pain Gastrointestinal: Abdominal Pain; Denies Diarrhea; Nausea, Vomiting Genitourinary: Denies Burning, Denies Discharge, Denies Frequency Musculoskeletal: No back pain Skin: No change in color All Other Systems Reviewed Negative Unless Noted: Yes Past Mgukyfd-Oydnua-Wbhosr Hx Patient Social History Tobacco Use?: No Substance use?: No Alcohol Use?: No Immunizations Up To Date First/Initial COVID19 Vaccinat: 03/08 Second COVID19 Vaccination Bruno: 03/08 Third COVID19 Vaccination Date: 03/08 Past Medical History Surgery/Hospitalization HX: CATARACT REMOVAL, CHOLECYSTECTOMY, PACEMAKER 05/18/22, INGUINAL REPAIR, HYSTERECTOMY, OOPHORECTOMY, MESH, AMPUATTION GREAT TOE, LYMPH NODE RIGHT GROIN, LIVER BIOPSY, Surgeries: Yes Amputation, Pacemaker Respiratory: No Cardiac: Yes (PACEMAKER IN PLACE) High Cholesterol, Hypertension, Irregular Heartbeat Neurological: Yes (PERIPHERAL NEUROPATHY; 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/01/22) Neuropathy, 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 History: Menopausal Genitourinary: Yes (BLADDER CONTROL ISSUES) Gastrointestinal: Yes Gastroesophageal Reflux Musculoskeletal: Yes (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 oz. kg; 22.00 BMI Method: General Appearance: WD/WN, no apparent distress HEENT: PERRL/EOMI, normal ENT inspection, TMs normal, pharynx normal Neck: non-tender, full range of motion, supple, normal inspection Respiratory: chest non-tender, lungs clear, normal breath sounds, no respiratory distress, no accessory muscle use Cardiovascular: regular rate, rhythm, no edema, no gallop, no JVD Gastrointestinal: normal bowel sounds, soft, no organomegaly, tenderness (Gastric and right upper quadrant tenderness.) Extremities: normal range of motion, non-tender, normal inspection Back: normal inspection, no CVA tenderness Neurologic/Psychiatric: currency examiner II-XII nml as tested, no motor/sensory deficits, alert, normal mood/affect, oriented x 3 Skin: normal color, warm/dry Progress/Results/Core Measures Results/Orders Lab Results Laboratory Tests Test 09/23/22 17:10 09/23/22 20:56 Range/Units White Blood Count 11.8 H 4.3-11.0 10^3/uL Red Blood Count 5.25 H 3.80-5.11 10^6/uL Hemoglobin 13.1 11.5-16.0 g/dL Hematocrit 41 35-52 % Mean Corpuscular Volume 78 L 80-99 fL Mean Corpuscular Hemoglobin 25 25-34 pg Mean Corpuscular Hemoglobin Concent 32 32-36 g/dL Red Cell Distribution Width 16.5 H 10.0-14.5 % Platelet Count 370 130-400 10^3/uL Mean Platelet Volume 10.4 9.0-12.2 fL Immature Granulocyte % (Auto) 0 % Neutrophils (%) (Auto) 83 H 42-75 % Lymphocytes (%) (Auto) 8 L 12-44 % Monocytes (%) (Auto) 7 0-12 % Eosinophils (%) (Auto) 2 0-10 % Basophils (%) (Auto) 0 0-10 % Neutrophils # (Auto) 9.8 H 1.8-7.8 10^3/uL Lymphocytes # (Auto) 1.0 1.0-4.0 10^3/uL Monocytes # (Auto) 0.8 0.0-1.0 10^3/uL Eosinophils # (Auto) 0.2 0.0-0.3 10^3/uL Basophils # (Auto) 0.1 0.0-0.1 10^3/uL Immature Granulocyte # (Auto) 0.0 0.0-0.1 10^3/uL Sodium Level 137 135-145 MMOL/L Potassium Level 4.3 3.6-5.0 MMOL/L Chloride Level 101 98-107 MMOL/L Carbon Dioxide Level 20 L 21-32 MMOL/L Anion Gap 16 H 5-14 MMOL/L Blood Urea Nitrogen 21 H 7-18 MG/DL Creatinine 1.24 0.60-1.30 MG/DL Estimat Glomerular Filtration Rate 44 BUN/Creatinine Ratio 17 Glucose Level 236 H 70-105 MG/DL Calcium Level 10.5 H 8.5-10.1 MG/DL Corrected Calcium 10.3 H 8.5-10.1 MG/DL Total Bilirubin 0.4 0.1-1.0 MG/DL Aspartate Amino Transf (AST/SGOT) 52 H 5-34 U/L Alanine Aminotransferase (ALT/SGPT) 87 H 0-55 U/L Alkaline Phosphatase 206 H 40-136 U/L Troponin I < 0.028 <0.028 NG/ML C-Reactive Protein High Sensitivity 1.50 H 0.00-0.50 MG/DL B-Type Natriuretic Peptide 287.0 H <100.0 PG/ML Total Protein 8.7 H 6.4-8.2 GM/DL Albumin 4.2 3.2-4.5 GM/DL Lipase 25 8-78 U/L Urine Color YELLOW Urine Clarity SL CLOUDY Urine pH 7.0 5-9 Urine Specific [place] <=1.005 1.016-1.022 Urine Protein NEGATIVE NEGATIVE Urine Glucose (UA) NEGATIVE NEGATIVE Urine Ketones NEGATIVE NEGATIVE Urine Nitrite POSITIVE H NEGATIVE Urine Bilirubin NEGATIVE NEGATIVE Urine Urobilinogen 0.2 < = 1.0 MG/DL Urine Leukocyte Esterase 2+ H NEGATIVE Urine RBC (Auto) TRACE-I H NEGATIVE Urine RBC 0-2 /HPF Urine WBC 25-50 H /HPF Urine Squamous Epithelial Cells 10-25 H /HPF Urine Crystals NONE /LPF Urine Bacteria LARGE H /HPF Urine Casts NONE /LPF Urine Mucus NEGATIVE /LPF Urine Culture Indicated YES My Orders Orders - IKE STONER PA Cbc With Automated Diff (09/23/22 17:09) Comprehensive Metabolic Panel (09/23/22 17:09) Lipase (09/23/22 17:09) Troponin I Wilkin (09/23/22 17:09) Bnp Harjinder (09/23/22 17:09) Chest 1 View, Ap/Pa Only (09/23/22 17:09) Hs C Reactive Protein (09/23/22 17:09) Ua Culture If Indicated (09/23/22 17:09) Ct Abdomen/Pelvis W (09/23/22 17:09) Ns Iv 1000 Ml (Sodium Chloride 0.9%) (09/23/22 17:09) Ondansetron Injection (Zofran Injectio (09/23/22 17:15) Iohexol Injection (Omnipaque 350 Mg/Ml 1 (09/23/22 18:00) Received Contrast (Hold Metformin- Contr (09/23/22 18:00) Ns (Ivpb) (Sodium Chloride 0.9% Ivpb Bag (09/23/22 18:00) Ondansetron Injection (Zofran Injectio (09/23/22 20:00) Ondansetron Injection (Zofran Injectio (09/23/22 19:55) Urine Culture (09/23/22 20:56) Rx-Ondansetron Po (Rx-Zofran Po) (09/23/22 21:30) Ceftriaxone 1 Gm Pre-Mix (Rocephin 1 Gm (09/23/22 21:25) Medications Given in ED Current Medications Medications Dose Ordered Sig/Comfort Route Start Time Stop Time Status Last Admin Dose Admin Iohexol 100 ml ONCE ONCE IV 09/23/22 18:00 09/23/22 18:01 DC 09/23/22 18:23 71 ML Ondansetron HCl 4 mg ONCE ONCE IVP 09/23/22 17:15 09/23/22 17:16 DC 09/23/22 17:31 4 MG Ondansetron HCl 4 mg ONCE ONCE IVP 09/23/22 20:00 09/23/22 20:01 DC 09/23/22 19:57 4 MG Ondansetron HCl 4 mg ONCE ONCE PO 09/23/22 21:30 09/23/22 21:31 DC 09/23/22 21:31 4 MG Sodium Chloride 100 ml ONCE ONCE IV 09/23/22 18:00 09/23/22 18:01 DC 09/23/22 18:23 80 ML Vital Signs/I&O 09/23/22 09/23/22 17:04 21:59 Temp 37.5 Pulse 74 98 Resp 22 18 B/P (MAP) 166/74 (104) 145/72 Pulse Ox 99 93 O2 Delivery Room Air Room Air Blood Pressure Mean: 104 Departure Communication (PCP) Reviewed previous ER visits, H&P's, testing. Patient with a history of CVA, diabetes, coronary artery disease. Due to patient's current complaint, location of pain with active vomiting and abdominal pain, CBC, CMP, lipase, troponin, urinalysis chest x-ray, CT abdomen pelvis was ordered. CBC showed a slight elevated white blood count 11.7 bicarb of 20 with an anion gap 16 could be related to the vomiting, dehydration or nonspecific. Her blood sugar was 236. Likely secondary to dehydration. Does not appear to be in DKA. Patient type II diabetic. Currently on insulin . chronically elevated liver enzymes from previous lab work. Creatinine 1.24 with a GFR of 44. She was given a liter of fluid secondary to vomiting with Zofran. CRP was 1.50 likely reactive. Negative troponin. BNP 287. Ventricular paced rhythm EKG. There is no evide nce of pitting edema. Likely chronically elevated. Does not appear to be a CHF exacerbation, cardiac event. Continue monitoring. Chest x-ray was negative for pneumonia, pleural effusion. She was hyperventilating for EMS. The shortness of breath did improved on arrival. Cardiac work-up unremarkable. Suspect viral in nature versus gastritis versus gastroenteritis versus colitis. She does have some mid to upper abdominal tenderness. History of cholecystectomy. CT abdomen and pelvis was ordered which showed liquid stool. Diverticulosis without diverticulitis's. Small nonloculated left pleural effusion which has decreased in size from previous imaging. Nonspecific findings. Patient symptoms were improving. Urinalysis was concern for UTI. Paient Was given a dose of Rocephin. Will discharge with Keflex patient here at bedside with similar symptoms. Several residents at [facility] with similar symptoms. Suspect that this is some form of viral etiology. Reevaluation abdomen was soft without any acute tenderness. She does not appear toxic or septic. She was feeling much better. Drinking fluids at bedside. Patient will be discharged home with Zofran. Continue monitoring symptoms at home. Follow-up your PCP in 2 to 3 days for reevaluation. Impression Primary Impression: Vomiting Additional Impression: UTI (urinary tract infection) Disposition: 01 HOME, SELF-CARE Condition: Stable Departure-Patient Inst. Decision time for Depature: 21:14 Referrals: RORY OSBORNE MD (PCP/Family) Primary Care Physician Patient Instructions: Nausea and Vomiting, Adult (DC) Scripts Cephalexin (Cephalexin) 500 Mg Tablet 500 MG PO BID for 7 Days, #4 TAB Prov: IKE STONER 09/23/22 Ondansetron (Ondansetron Odt) 4 Mg Tab.rapdis 4 MG SL Q4H PRN for NAUSEA/VOMITING, #8 TAB Prov: IKE STONER 09/23/22 IKE STONER Sep 23, 2022 17:15
[2022-09-23 17:18] LABS: BASOPHILS # (AUTO) 0.1 10^3/uL (0.0-0.1); BASOPHILS % (AUTO) 0 % (0-10); EOSINOPHILS # (AUTO) 0.2 10^3/uL (0.0-0.3); EOSINOPHILS % (AUTO) 2 % (0-10); HEMATOCRIT 41 % (35-52); HEMOGLOBIN 13.1 g/dL (11.5-16.0); LYMPHOCYTES % (AUTO) 8 % (12-44); MEAN CORPUSCULAR HEMOGLOBIN 25 pg (25-34); MEAN CORPUSCULAR HGB CONC 32 g/dL (32-36); MEAN CORPUSCULAR VOLUME 78 fL (80-99); MEAN PLATELET VOLUME 10.4 fL (9.0-12.2); MONOCYTES # (AUTO) 0.8 10^3/uL (0.0-1.0); MONOCYTES % (AUTO) 7 % (0-12); NEUTROPHILS # (AUTO) 9.8 10^3/uL (1.8-7.8); NEUTROPHILS % (AUTO) 83 % (42-75); PLATELET COUNT 370 10^3/uL (130-400); WHITE BLOOD COUNT 11.8 10^3/uL (4.3-11.0)
[2022-09-23 17:28] LABS: ALBUMIN 4.2 GM/DL (3.2-4.5); CHLORIDE 101 MMOL/L (98-107); POTASSIUM 4.3 MMOL/L (3.6-5.0)
[2022-09-23 17:29] LABS: SODIUM 137 MMOL/L (135-145)
[2022-09-23 17:30] LABS: CALCIUM 10.5 MG/DL (8.5-10.1)
[2022-09-23 17:31] LABS: GLUCOSE 236 MG/DL (70-105); TOTAL PROTEIN 8.7 GM/DL (6.4-8.2)
[2022-09-23 17:32] LABS: CARBON DIOXIDE 20 MMOL/L (21-32)
[2022-09-23 17:33] LABS: BILIRUBIN,TOTAL 0.4 MG/DL (0.1-1.0)
[2022-09-23 17:34] LABS: ALKALINE PHOSPHATASE 206 U/L (40-136)
[2022-09-23 17:35] LABS: CREATININE SERUM 1.24 MG/DL (0.60-1.30); GFR ESTIMATED 44
[2022-09-23 17:36] LABS: BUN/CREATININE RATIO 17
[2022-09-23 17:37] LABS: ALANINE AMINOTRANSFERASE 87 U/L (0-55)
[2022-09-23 17:38] LABS: LIPASE 25 U/L (8-78)
--- NOTE | 2022-09-23 17:44 | Diagnostic Imaging Report ---
INDICATION: Chest pain. COMPARISON: Exam compared to 06/01/2022. FINDINGS: The lungs are clear. No failure, effusion, or pneumothorax. Midline retrocardiac density is believed to reflect a stable hiatal hernia. IMPRESSION: No acute-appearing abnormality. Dictated by: Dictated on workstation # [id number]
[2022-09-23] MEDS ORDERED: HOLD METFORMIN - RECEIVED CONTRAST 20 ML VIAL IV SCH (18:00)
[2022-09-23] MEDS ORDERED: NS 100 ML (IVPB) BAG IV ONE (18:00)
[2022-09-23] MEDS ORDERED: IOHEXOL 350 MG/ML 100 ML (OMNIPAQUE 350) VIAL IV ONE (18:00)
--- NOTE | 2022-09-23 18:41 | Diagnostic Imaging Report ---
PROCEDURE: CT abdomen and pelvis with contrast. TECHNIQUE: Multiple contiguous axial images were obtained through the abdomen and pelvis after administration of intravenous contrast. Auto Exposure Controls were utilized during the CT exam to meet ALARA standards for radiation dose reduction. All CT scans use one or more of the following dose optimizing techniques: automated exposure control, MA and/or KvP adjustment based on patient size and exam type or iterative reconstruction. INDICATION: Vomiting, pain, history of hernia. COMPARISON: Limited overlapped sections obtained at chest CT 06/01/2022. FINDINGS: Aortoiliac atherosclerotic vascular calcifications, chronic and nonaneurysmal. No acute aortic pathology. No mesenteric thrombus found. No finding of acute end organ ischemia. There is noninflamed sigmoid diverticulosis. No feature of diverticulitis. No finding of appendicitis. There is an increased fluid load within the large bowel suggestive of a diarrheal state. There is a moderate retrocardiac hiatal hernia, chronic. There is some minute amount of subcentimeter left pleural fluid. There is no abdominopelvic ascites. No abscess, hematoma or acute fluid collection. No acute appearing abdominal wall pathology. No mesenteric or retroperitoneal adenopathy. Gallbladder is surgically absent. No pathological biliary dilatation. Spleen, adrenals and pancreas all unremarkable. The kidneys are unobstructed and nonacute. IMPRESSION: 1. Elevated liquid stool in the colon, correlate for constipation. Scattered noninflamed colonic diverticulosis without diverticulitis. Unobstructed urinary tracts. Absent gallbladder with no acute appearing hepatobiliary pathology. 2. Retrocardiac hiatal hernia and a minute nonloculated left pleural effusion (decreased from comparison). Dictated by: Dictated on workstation # [id number]
[2022-09-23] MEDS ORDERED: ONDANSETRON 4 MG/2 ML (SDV) Z0FRAN ONE (19:55)
[2022-09-23 21:02] LABS: BILIRUBIN,URINE NEGATIVE (NEGATIVE); CLARITY,URINE SL CLOUDY; COLOR,URINE YELLOW; GLUCOSE, URINE (UA) NEGATIVE (NEGATIVE); KETONES,URINE NEGATIVE (NEGATIVE); LEUKOCYTE ESTERASE ,URINE 2+ (NEGATIVE); NITRITE,URINE POSITIVE (NEGATIVE); PROTEIN,URINE NEGATIVE (NEGATIVE)
[2022-09-23 21:12] LABS: BACTERIA,URINE LARGE /HPF; RBC,URINE 0-2 /HPF; WBC,URINE 25-50 /HPF
[2022-09-23] MEDS ORDERED: ONDA4TAB11 SL (21:16)
[2022-09-23] MEDS ORDERED: cefTRIAXone 1 GM PRE-MIX 50 ML IV STA (21:25)
[2022-09-23] MEDS ORDERED: CEPH500T PO (21:30)
[2022-09-23] MEDS ORDERED: RX-ONDANSETRON 4 MG ODT (ZOFRAN) PPK #4 PO ONE (21:30)
[2022-09-23 21:59] VITALS: BP 145/72
== END 2022-09-23 22:00 | disposition home or self-care (01) ==
LOC: EDUNIT# 17:01 → ER 17:02
DX: N39.0 Urinary tract infection, site not specified (principal); R94.4 Abnormal results of kidney function studies; E11.40 Type 2 diabetes mellitus with diabetic neuropathy, unspecified; I10 Essential (primary) hypertension; D72.829 Elevated white blood cell count, unspecified; Z90.49 Acquired absence of other specified parts of digestive tract; Z98.890 Other specified postprocedural states; Z79.4 Long term (current) use of insulin
CPT/HCPCS: 36415; 71045; 74177; 80053; 81000; 83690; 83880; 84484; 85025; 86141; 87077; 87088; 87186; 99283